=== PATIENT | female | born 1960 | race Caucasian/White ===

== ENCOUNTER 2020-01-25 18:09 | Inpatient (IN) | payer OTHER ==
[~2020-01-25] VITALS: Ht 170.2 cm; Wt 117.9 kg
[2020-01-25] MEDS ORDERED: HYDROCODONE/APAP 10MG-325MG TAB PO ONE (19:30)
[2020-01-25] MEDS ORDERED: METOPROLOL SUCCINATE 25 MG TAB XL PO ONE (19:30)
--- NOTE | 2020-01-25 19:48 | Emergency Department Note ---
History of Present Illnes History of Present Illness Chief Complaint: Extremity Trauma/Pain History of Present Illness This is a 59 year old female presents with c/o injuring right lower leg, states her leg gave out and she fell . Historian: Patient Arrival Mode: Car Onset (how long ago): hour(s) (1) Location: lle Quality: pain Radiation: Reports non-radiation Severity: moderate Onset quality: sudden Duration (how long): hour(s) (1) Timing of current episode: constant Progression: unchanged Chronicity: new Context: Reports trauma/injury (fell) Relieving factors: none Exacerbating factors: movement Associated symptoms: Reports denies other symptoms Treatments prior to arrival: none Past Medical/Family History Physician Review I have reviewed the patient's past medical and family history. Any updates have been documented here. Past Medical History Recent Fever: No Clinical Suspicion of Infectio: No New/Unexplained Change in Ment: No Past Surgical History: Cholecysctectomy, Knee Replacement Other Surgery: BILATERAL KNEE REPLACEMENTS Social History Smoking Cessation: Never Smoker Alcohol Use: Occasional Any Illegal Drug Use: No Family History Family history of heart diseas: No Other Last Tetanus: UTD Review of Systems Review of Systems Constitutional: Reports no symptoms EENTM: Reports no symptoms Cardiovascular: Reports no symptoms Respiratory: Reports no symptoms Gastrointestinal: Reports no symptoms Genitourinary: Reports no symptoms Musculoskeletal: Reports as per HPI Integumentary: Reports no symptoms Neurological: Reports no symptoms Psychological: Reports no symptoms Endocrine: Reports no symptoms Hematological/Lymphatic: Reports no symptoms Physical Exam Related Data Allergies: Coded Allergies: Sulfa (Sulfonamide Antibiotics) (Verified Allergy, Intermediate, 01/25/20) Triage Vital Signs Vital Signs Date Time Temp Pulse Resp B/P (MAP) Pulse Ox O2 Delivery O2 Flow Rate FiO2 01/25/20 19:24 97.9 118 18 119/75 98 Vital signs reviewed: Yes Physical Exam CONSTITUTIONAL Constitutional: Present well-developed, Present well-nourished HENT HENT: Present normocephalic, Present atraumatic, Present oropharynx clear/moist, Present nose normal HENT L/R: Present left ext ear normal, Present right ext ear normal EYES Eyes: Reports PERRL, Reports conjunctivae normal NECK Neck: Present ROM normal PULMONARY Pulmonary: Present effort normal, Present breath sounds normal CARDIOVASCULAR Cardiovascular: Present regular rhythm, Present heart sounds normal, Present capillary refill normal, Present tachycardia (118, pt has not had her evening dose of metoprolol for her chronic tachycardia) GASTROINTESTINAL Abdominal: Present soft, Present nontender, Present bowel sounds normal GENITOURINARY Genitourinary: Present exam deferred SKIN Skin: Present warm, Present dry MUSCULOSKELETAL Musculoskeletal: Present deformity (mild right lower leg with abrasion present, bruising extends to calf) NEUROLOGICAL Neurological: Present alert, Present oriented x 3, Present no gross motor or sensory deficits PSYCHOLOGICAL Psychological: Present mood/affect normal, Present judgement normal Results Laboratory Laboratory Laboratory Tests Test 01/26/20 01:18 01/25/20 23:00 01/25/20 22:55 White Blood Count 11.80 x10e3/uL (4.8-10.8) Red Blood Count 4.84 x10e6/uL (3.6-5.1) Hemoglobin 14.8 g/dL (12.0-16.0) Hematocrit 44.5 % (34.2-44.1) Mean Corpuscular Volume 91.9 fL (81-99) Mean Corpuscular Hemoglobin 30.6 pg (28-32) Mean Corpuscular Hemoglobin Concent 33.3 g/dL (31-35) Red Cell Distribution Width 14.5 % (11.7-14.4) Platelet Count 258 x10e3/uL (140-360) Neutrophils (%) (Auto) 73.7 % (38.7-80.0) Lymphocytes (%) (Auto) 14.5 % (18.0-39.1) Monocytes (%) (Auto) 8.1 % (4.4-11.3) Eosinophils (%) (Auto) 1.0 % (0.0-6.0) Basophils (%) (Auto) 0.8 % (0.0-1.0) Neutrophils # (Auto) 8.7 (2.1-6.9) Lymphocytes # (Auto) 1.7 (1.0-3.2) Monocytes # (Auto) 1.0 (0.2-0.8) Eosinophils # (Auto) 0.1 (0.0-0.4) Basophils # (Auto) 0.1 (0.0-0.1) Absolute Immature Granulocyte (auto 0.22 x10e3/uL (0-0.1) Prothrombin Time 12.2 seconds (11.9-14.5) Prothromb Time International Ratio 0.86 Activated Partial Thromboplast Time 24.4 seconds (23.8-35.5) Sodium Level 140 mmol/L (136-145) Potassium Level 4.3 mmol/L (3.5-5.1) Chloride Level 105 mmol/L (98-107) Carbon Dioxide Level 27 mmol/L (22-29) Anion Gap 12.3 mmol/L (8-16) Blood Urea Nitrogen 12 mg/dL (7-26) Creatinine 1.36 mg/dL (0.57-1.11) Estimat Glomerular Filtration Rate 40 ML/MIN (60-) BUN/Creatinine Ratio 9 (6-25) Glucose Level 274 mg/dL (74-118) Calcium Level 9.3 mg/dL (8.4-10.2) Total Bilirubin 0.6 mg/dL (0.2-1.2) Aspartate Amino Transf (AST/SGOT) 30 IU/L (5-34) Alanine Aminotransferase (ALT/SGPT) 31 IU/L (0-55) Alkaline Phosphatase 131 IU/L (40-150) Total Protein 6.6 g/dL (6.5-8.1) Albumin 3.6 g/dL (3.5-5.0) Globulin 3.0 g/dL (2.3-3.5) Albumin/Globulin Ratio 1.2 (0.8-2.0) Lab results reviewed: Yes Imaging Imaging results reviewed: Yes Imaging Comments PT WITH DISPLACED SPIRAL FRACTURE OF RIGHT TIBIA Procedures 12 Lead ECG Interpretation ECG Interpretation : ECG: 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: Interpreted by ED physician Date: Jan 26, 2020 Time: 23:08 Rhythm: sinus tachycardia Rate: tachycardia BPM: 136 QRS axis: left ST segments normal: No (NON SECIFIC ST CHANGES) T waves normal: Yes Other findings: no other findings Clinical Impression: abnormal ECG Additional Comments PT DID NOT TAKE HER METOPROLOL TONIGHT AND SHE STATES THAT IS WHAT MY HEART RATE DOES WHEN I FORGET TO TAKE MY METOPROLOL Orthopedic Splinting/Casting Injury: Injury #1 Side: right Lower extremity injury locatio: lower leg Lower extremity immobilizer: stirrup splint Assessment & Plan Medical Decision Making MDM pt with right lower leg injury s/p fall xray left lower leg and left ankle ordered to eval for fracture norco 10 mg po ordered metoprolol er 25 mg po ordered PT WITH DISPLACE RIGHT TIBIA FRACTURE, I SPOKE WITH DR PORTER AND DR SMITH, ADMIT INPATIENT KEEP NPO Assessment & Plan Final Impression: (1) Chronic tachycardia (2) Right tibial fracture Depart Disposition: ADMITTED Last Vital Signs Date Time Temp Pulse Resp B/P (MAP) Pulse Ox O2 Delivery O2 Flow Rate FiO2 01/25/20 19:24 97.9 118 18 119/75 98 Medications in the ED Metoprolol Succinate 25 mg ONCE ONCE PO ; Start 01/25/20 at 19:30; Stop 01/25/20 at 19:31; Status DC Acetaminophen/ Hydrocodone Bitart 1 ea ONCE ONCE PO ; Start 01/25/20 at 19:30; Stop 01/25/20 at 19:31; Status DC SYED DORMAN MD Jan 25, 2020 19:47
--- NOTE | 2020-01-25 20:45 | Diagnostic Imaging Report ---
ANKLE 3 + VIEWS RIGHT, LOWER LEG RIGHT - Multiple views HISTORY: ^s/p fall ^Y COMPARISON: None available. FINDINGS: Bones: There is a mildly displaced spiral fracture of the distal femoral shaft. Osseous alignment is within normal limits. Joints: The joint spaces are well-maintained. Soft tissues: There is a small heel spur and Achilles tendon enthesophyte. IMPRESSION: Mildly displaced spiral fracture of the distal femoral shaft Signed by: Link Belle MD on 01/25/2020 8:41 PM
--- NOTE | 2020-01-25 22:39 | Diagnostic Imaging Report ---
Examination: Single AP view of the chest. COMPARISON: None. INDICATION: Preop exam for right leg surgery IMPRESSION: 1. Lines and Tubes: None 2. Lungs are grossly clear. No consolidation or effusion. Elevation of the right hemidiaphragm, which may be due to eventration. 3. Cardiomediastinal silhouette is normal. Pulmonary vasculature is normal. 4. No acute bony abnormalities. Degenerative changes in the thoracic spine. Signed by: Dr. Roberto Garcia M.D. on 01/25/2020 10:36 PM
[2020-01-25] MEDS ORDERED: HYDROCODONE/APAP 10MG-325MG TAB ONE (22:46)
[2020-01-25] MEDS ORDERED: METOPROLOL SUCCINATE 25 MG TAB XL ONE (22:46)
[2020-01-25 23:07] LABS: BASOPHILS # (AUTO) 0.1 (0.0-0.1); BASOPHILS % 0.8 % (0.0-1.0); EOSINOPHILS # (AUTO) 0.1 (0.0-0.4); HEMATOCRIT 44.5 % (34.2-44.1); HEMOGLOBIN 14.8 g/dL (12.0-16.0); LYMPHOCYTES # (AUTO) 1.7 (1.0-3.2); LYMPHOCYTES % 14.5 % (18.0-39.1); MEAN CORPUSCULAR HEMOGLOBIN 30.6 pg (28-32); MEAN CORPUSCULAR HGB CONC 33.3 g/dL (31-35); MEAN CORPUSCULAR VOLUME 91.9 fL (81-99); MONOCYTES % 8.1 % (4.4-11.3); NEUTROPHILS # (AUTO) 8.7 (2.1-6.9); NEUTROPHILS % 73.7 % (38.7-80.0); PLATELET COUNT 258 x10e3/uL (140-360); RED BLOOD COUNT 4.84 x10e6/uL (3.6-5.1); RED CELL DISTRIBUTION WIDTH 14.5 % (11.7-14.4)
[2020-01-25 23:16] LABS: INR 0.86; PROTHROMBIN TIME 12.2 seconds (11.9-14.5)
[2020-01-25 23:17] LABS: PARTIAL THROMBOPLASTIN TIME 24.4 seconds (23.8-35.5)
[2020-01-25 23:23] LABS: ALBUMIN 3.6 g/dL (3.5-5.0); ALBUMIN/GLOBULIN RATIO 1.2 (0.8-2.0); ANION GAP 12.3 mmol/L (8-16); CALCIUM 9.3 mg/dL (8.4-10.2); CREATININE, SERUM 1.36 mg/dL (0.57-1.11); POTASSIUM 4.3 mmol/L (3.5-5.1)
[2020-01-25] MEDS ORDERED: HEPARIN SOD (PORCINE) 5,000 UNIT/ML VIAL IV STA (23:48)
[2020-01-26] VITALS (7 sets, daily range): BP systolic 88–125; BP diastolic 59–76
--- NOTE | 2020-01-26 00:17 | NUR ---
order for heparin iv noted. dr vargas called to clarify route. dr vargas ordered to change to sq route.
[2020-01-26] MEDS: ONDANSETRON HCL INJ 2MG/ML 2ML 2 MG/ML VIAL IV STA ×2 (00:26→01:40)
[2020-01-26] MEDS: MORPHINE SULFATE 2 MG/ML SYR 1ML IV STA ×2 (00:26→01:40)
[2020-01-26] MEDS ORDERED: HEPARIN SOD (PORCINE) 5,000 UNIT/ML VIAL SC ONE (00:30)
[2020-01-26] MEDS ORDERED: SODIUM CHLORIDE 0.9% 1000ML 500 ML IV ONE (00:45)
[2020-01-26] MEDS ORDERED: SODIUM CHLORIDE 0.9% 1000ML 1,000 ML ONE (00:45)
[2020-01-26] MEDS ORDERED: SODIUM CHLORIDE 0.9% 500ML 500 ML ONE (00:45)
[2020-01-26] MEDS: SODIUM CHLORIDE 0.9% 1000ML 1,000 ML IV SCH ×3 (01:15→16:47)
[2020-01-26] MEDS ORDERED: LISINOPRIL2.5 MG PO (01:39)
[2020-01-26] MEDS ORDERED: VITAMIN D3125 MCG PO (01:39)
[2020-01-26] MEDS ORDERED: VITAMIN B122500 MCG PO (01:39)
[2020-01-26] MEDS ORDERED: STOOL SOFTENER1 EAC2 PO (01:39)
[2020-01-26] MEDS ORDERED: DOXEPIN HCL25 MG PO (01:39)
[2020-01-26] MEDS ORDERED: ZOFRAN4 MG PO (01:39)
[2020-01-26] MEDS ORDERED: METOPROLOL SUCC25 MG PO (01:39)
[2020-01-26] MEDS ORDERED: DOXYCYCLINE HY100 MG PO (01:39)
[2020-01-26] MEDS ORDERED: ATORVASTATIN CA20 MG PO (01:39)
[2020-01-26] MEDS ORDERED: LEVOTHYROXINE50 MCG PO (01:39)
[2020-01-26] MEDS ORDERED: ONDANSETRON HCL INJ 2MG/ML 2ML 2 MG/ML VIAL IV PRN (01:45)
[2020-01-26 02:02] LABS: BILIRUBIN,URINE NEGATIVE (NEGATIVE); CLARITY,URINE CLOUDY (CLEAR); COLOR,URINE YELLOW (YELLOW); KETONES,URINE NEGATIVE (NEGATIVE); LEUKOCYTE ESTERASE ,URINE TRACE (NEGATIVE); NITRITE,URINE NEGATIVE (NEGATIVE); URINE UROBILINOGEN 0.2 mg/dL (0.2 - 1)
[2020-01-26 02:03] LABS: PROTEIN,URINE DIPSTICK 1+ (NEGATIVE)
[2020-01-26 02:08] LABS: BACTERIA,URINE MODERATE /HPF; EPITHELIAL CELLS,URINE FEW /LPF; TRANSITIONAL EPI CELLS,URINE FEW; WBC,URINE (MAN) >50 /HPF (0-5)
[2020-01-26] MEDS ORDERED: KETOROLAC TROMETHAMINE 30 MG/ML VIAL IV STA (02:36)
[2020-01-26] MEDS ORDERED: KETOROLAC TROMETHAMINE 30 MG/ML VIAL ONE (02:44)
[2020-01-26] MEDS ORDERED: PNEUMOCOCCAL VACCINE POLYVALENT 23 MCG/0.5 ML VIAL IM SCH (04:44)
--- NOTE | 2020-01-26 07:17 | NUR ---
Bedside report and walking rounds completed with oncoming nurse. Patient in bed with call light within reach. No issue or concerns noted.
[2020-01-26] MEDS: METOPROLOL SUCCINATE 25 MG TAB XL PO SCH ×2 (09:00→16:47)
[2020-01-26] MEDS: DOXYCYCLINE HYCLATE TABLET 100 MG TAB PO SCH ×2 (09:00→16:47)
[2020-01-26 09:44] LABS: BASOPHILS % 0.5 % (0.0-1.0); EOSINOPHILS # (AUTO) 0.1 (0.0-0.4); EOSINOPHILS % 1.6 % (0.0-6.0); HEMATOCRIT 35.2 % (34.2-44.1); LYMPHOCYTES # (AUTO) 1.3 (1.0-3.2); LYMPHOCYTES % 30.3 % (18.0-39.1); MEAN CORPUSCULAR HEMOGLOBIN 30.3 pg (28-32); MEAN CORPUSCULAR HGB CONC 32.4 g/dL (31-35); MEAN CORPUSCULAR VOLUME 93.6 fL (81-99); MONOCYTES # (AUTO) 0.5 (0.2-0.8); MONOCYTES % 10.4 % (4.4-11.3); NEUTROPHILS # (AUTO) 2.4 (2.1-6.9); NEUTROPHILS % 55.3 % (38.7-80.0); RED BLOOD COUNT 3.76 x10e6/uL (3.6-5.1); RED CELL DISTRIBUTION WIDTH 14.6 % (11.7-14.4)
[2020-01-26 09:57] LABS: HEMOGLOBIN 11.4 g/dL (12.0-16.0); PLATELET COUNT 168 x10e3/uL (140-360)
[2020-01-26 10:22] LABS: CALCIUM 8.1 mg/dL (8.4-10.2); POTASSIUM 3.8 mmol/L (3.5-5.1)
[2020-01-26 11:08] LABS: ALBUMIN 2.8 g/dL (3.5-5.0); ALBUMIN/GLOBULIN RATIO 1.2 (0.8-2.0); ANION GAP 13.8 mmol/L (8-16); CREATININE, SERUM 1.2 mg/dL (0.57-1.11)
[2020-01-26] MEDS: MORPHINE SULFATE INJ 4 MG/ML INJ 1ML IV PRN ×3 (11:10→21:15)
--- NOTE | 2020-01-26 11:11 | History and Physical ---
CHIEF COMPLAINT: "I fell." HISTORY OF PRESENT ILLNESS: This 59-year-old white woman, who suffered a mechanical fall yesterday on day of admission, which resulted in a right distal spiral fibular fracture. The patient states she did not lose consciousness or experience any presyncope symptoms prior to falling. The patient states she was reaching out to obtain her mail from the mailbox when her left lower extremity gave out. In the emergency room, right lower extremity x-ray did confirm the mildly displaced spiral fracture of the distal fibular shaft. However in the emergency room, the patient was found to have a BUN and creatinine of 12 and 1.36 respectively. Moreover, she was found to have white blood cell count 11,800 with 73% segmented neutrophils. Urinalysis performed in the emergency room revealed cloudy yellow urine with trace blood, 1+ protein, trace leukocyte esterase, 6 to 10 red cells per high-power field, over 50 white cells per high-power field, and moderate bacteria. The patient was admitted for further evaluation and treatment. The patient has a history of chronic left knee joint infection, is currently on doxycycline 100 mg twice a day indefinitely. A 12- lead EKG done in the emergency room revealed sinus tachycardia, otherwise unremarkable. Chest film performed in the emergency room did not reveal any acute intrathoracic pathology. REVIEW OF SYSTEMS: GENERAL: Weight is stable. No fever or chills. HEENT: No headaches. No vision changes. CARDIOVASCULAR: No chest pain or cough. GI: No nausea, vomiting, diarrhea, constipation. : The patient states does urinate frequently. NEUROMUSCULAR: Does complain of pain in her right lower leg. The patient also has chronic left knee joint infection in which she takes doxycycline 100 mg twice a day indefinitely. PAST MEDICAL HISTORY: 1. Stage 2 chronic kidney disease. 2. Extreme obesity, BMI 42. 3. Bilateral knee degenerative joint disease. 4. Peripheral neuropathy. 5. Hypertriglyceridemia. 6. Chronic left knee joint infection. 7. Tachycardia. 8. History of left lower extremity deep venous thrombosis. 9. Hypothyroidism. PAST SURGICAL HISTORY: 1. Left total knee replacement, 3 times. 2. Left knee antibiotic spacer replacement twice because of infection. 3. Gastric bypass. 4. Prophylactic cholecystectomy. 5. Cholecystectomy. SOCIAL HISTORY: and she lives with her . 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 The patient has no history of tobacco or alcohol use, but she has been exposed to secondhand tobacco smoke from her for many years. FAMILY HISTORY: Father has diabetes mellitus and coronary artery disease. Mother of lung cancer. ALLERGIES: SULFA ANTIBIOTICS. HOME MEDICATIONS: 1. Doxycycline 100 mg b.i.d. (indefinitely for chronic left knee joint infection). 2. Ondansetron 4 mg p.o. every 8 hours p.r.n. nausea and vomiting times. 3. Doxepin 150 mg two pills every night. 4. Atorvastatin 20 mg at bedtime. 5. Levothyroxine 50 mcg daily. 6. Metoprolol succinate ER 25 mg b.i.d. 7. Lisinopril 2.5 mg daily. 8. Vitamin B12 of 1000 mcg daily. 9. Vitamin D3 of 5000 units daily. 10. Docusate 100 mg daily. PHYSICAL EXAMINATION: GENERAL: She is awake. She is alert. She is oriented. She is no distress and very pleasant. Calm. VITAL SIGNS: Height 5 feet 6 inches, weight is 260 pounds. BMI is 42. Blood pressure is 88/62, pulse 98, respiratory rate 18, temperature 97.5, oxygen saturation 100% on room air. INTEGUMENT: Skin is warm and dry. No pallor, jaundice, diaphoresis. HEENT: Anterior sclerae with moist mucous membranes. NECK: Supple. CARDIOVASCULAR: Tachycardic rate with a regular rhythm. LUNGS: No rales, no rhonchi or wheezes. ABDOMEN: Obese and benign. EXTREMITIES: The patient's left lower leg is currently wrapped in Lion bandage. NEUROLOGICAL: Intact. DIAGNOSES: 1. Right distal spiral fibular fracture secondary to fall. 2. Urinary tract infection. 3. Acute on chronic renal insufficiency. 4. Chronic tachycardia. PLAN: 1. Intravenous fluids. 2. Follow urine culture. 3. We will start intravenous ceftriaxone for the patient's urinary tract infection. 4. Consult Orthopedics for patient's right distal spiral fibular fracture. 5. I will clear the patient medically for surgery to repair the right distal fibular fracture. I spent 45 minutes in care of this patient. MD EMANI Martinez/MARGAUX /[id number] MTDD
[2020-01-26] MEDS: CEFTRIAXONE SOD 1 GM/NS 50 ML 50 ML IV SCH ×2 (11:37→22:16)
[2020-01-26] MEDS ORDERED: SODIUM CHLORIDE 0.9% IV SCH (11:45)
[2020-01-26] MEDS ORDERED: SODIUM CHLORIDE 0.9% 250ML 250 ML IV SCH (13:45)
--- NOTE | 2020-01-26 19:32 | NUR ---
ORTHOPEDIC CONSULTATION 59 year old community ambulator presents to the ED after a fall with complaints of right tibia & fibula pain. Pain localized to leg. She denies pain in any other extremity. No numbness, paresthesias or loss of distal motor function. PMdHx: CKD, Obesity, Peripheral neuropathy, HLD, Tachycardia, Chronic Left Knee Joint Infection, DVT, Hypothyroidism SurgHx: S/p RTKA (Law), L TKA x 3, Antibiotic Spacer, Gastric Bypass, Cholecystectomy Allergies: Sulfa FamHx: Non-contributory SocHx: Neg Tob, ETOH, Drugs Meds: See reconciliation AVSS Right Lower Leg in Splint Skin - small abrasion, otherwise skin intact Swollen lower leg Motor: + EHL, FHL, EDL, FDL Sensation grossly intact Pulses + DP, Post tib Compartments soft Negative calf tenderness Xrays: Right Displaced Tibial and Fibula Shaft Fracture 59 year old female with displaced right tibial and fibular shaft fracture 1. Plan for ORIF today, however due to last minute anesthesia changes in schedule procedure can not be done today. Plan for surgery at next earliest opp ortunity 2. Continue splint 3. NWB 4. Rest, Ice & Elevation 5. DVT Prophylaxis 6. Analgesics PRN Claudia Randolph,
[2020-01-27] VITALS (7 sets, daily range): BP systolic 109–138; BP diastolic 55–81
[2020-01-27] MEDS: SODIUM CHLORIDE 0.9% 1000ML 1,000 ML IV SCH ×2 (01:06→09:52)
[2020-01-27] MEDS: MORPHINE SULFATE INJ 4 MG/ML INJ 1ML IV PRN ×2 (01:35→09:58)
[2020-01-27 05:26] LABS: BASOPHILS % 0.5 % (0.0-1.0); EOSINOPHILS # (AUTO) 0.1 (0.0-0.4); HEMATOCRIT 34.4 % (34.2-44.1); HEMOGLOBIN 11.2 g/dL (12.0-16.0); LYMPHOCYTES # (AUTO) 1.1 (1.0-3.2); LYMPHOCYTES % 28.1 % (18.0-39.1); MEAN CORPUSCULAR HEMOGLOBIN 30.6 pg (28-32); MEAN CORPUSCULAR HGB CONC 32.6 g/dL (31-35); MONOCYTES # (AUTO) 0.4 (0.2-0.8); MONOCYTES % 9.8 % (4.4-11.3); NEUTROPHILS # (AUTO) 2.3 (2.1-6.9); NEUTROPHILS % 56.6 % (38.7-80.0); PLATELET COUNT 155 x10e3/uL (140-360); RED BLOOD COUNT 3.66 x10e6/uL (3.6-5.1); RED CELL DISTRIBUTION WIDTH 14.7 % (11.7-14.4)
[2020-01-27 05:57] LABS: ALBUMIN 2.8 g/dL (3.5-5.0); ALBUMIN/GLOBULIN RATIO 1.2 (0.8-2.0); ANION GAP 11.7 mmol/L (8-16); CALCIUM 7.9 mg/dL (8.4-10.2); CREATININE, SERUM 1.03 mg/dL (0.57-1.11); POTASSIUM 3.7 mmol/L (3.5-5.1)
--- NOTE | 2020-01-27 07:10 | NUR ---
Bedside report and walking rounds completed with oncoming nurse. Patient in bed with call light within reach. No issues or concerns noted.
[2020-01-27] MEDS: DOXYCYCLINE HYCLATE TABLET 100 MG TAB PO SCH ×2 (09:00→16:43)
[2020-01-27] MEDS: METOPROLOL SUCCINATE 25 MG TAB XL PO SCH ×3 (09:00→16:43)
--- NOTE | 2020-01-27 09:20 | Consultation ---
DATE OF CONSULTATION: 01/27/2020 CHIEF COMPLAINT: Right leg pain. HISTORY OF PRESENT ILLNESS: The patient is a 59-year-old lady who is complaining of right leg pain. She was going to get her mail approximately two days ago. She lost her balance and fell. She noted immediate onset of right leg pain. She was brought into the emergency room and admitted. Orthopedic consultation was requested. She was seen by an orthopedist and scheduled for surgery. There were some scheduling difficulties and he was unable to get to the surgery for several days. A 2nd orthopedic consultation was requested in order to get the leg fracture treated in a more expedited fashion. This was cleared with the patient and I agreed to see the patient. PAST MEDICAL HISTORY: Hypertension and cardiac disease. PREVIOUS SURGERIES: Cholecystectomy, gastric bypass, and left shoulder pectoralis repair. MEDICATIONS: See medication reconciliation list. ALLERGIES: SULFA DRUGS. SOCIAL HISTORY: She stays at home. She lives with her and daughter. She does not smoke and rarely drinks alcohol. PHYSICAL EXAMINATION: She is awake, alert, and oriented. She is in no distress. She is large and has a BMI of roughly 40. Her right lower extremity is in a long-leg splint. There is tenderness around the distal aspect of the leg. Neurovascular exam is normal. There are no puncture wounds, but there is moderate swelling. LABORATORY STUDIES: X-rays were reviewed and show a spiral fracture of the distal 1/3 shaft of the right tibia. She has a well-fixed knee replacement above the fracture. IMPRESSION: Right tibia fracture. PLAN: The findings and options were discussed with the patient at length. I would not be able to fix this with an intramedullary nail due to the short stem of the knee replacement. This fracture will require open reduction with internal fixation with some percutaneous proximal and distal fixation. The risks and benefits were explained. This is a difficult area for wound healing. She has comorbidities which are going to make her recovery most challenging. She does not appear to have the upper body strength to get around easily while being nonweightbearing. I suspect she will need to use a wheelchair for at least six weeks. She may have to require a stay at a rehab hospital. All of this was discussed. All of her questions were answered. She states she understands and wishes to proceed with the surgery. We have tentatively scheduled this for later today. Thank you for the consultation. Ajay Guillory MD DR/MARGAUX /[id number]
[2020-01-27] MEDS: CEFTRIAXONE SOD 1 GM/NS 50 ML 50 ML IV SCH ×2 (09:58→22:54)
[2020-01-27] MEDS ORDERED: PNEUMOCOCCAL VACCINE POLYVALENT 23 MCG/0.5 ML VIAL IM SCH (10:15)
--- NOTE | 2020-01-27 11:16 | Progress Note ---
DATE: 01/27/2020 CHIEF COMPLAINT/HISTORY OF PRESENT ILLNESS: This is a 59-year-old white woman, whose primary treating diagnosis is right distal spiral fibular fracture secondary to fall. She also has underlying urinary tract infection. Moreover, she was admitted to the hospital with acute on chronic renal insufficiency. The patient states her pain is well controlled today. The patient's BUN and creatinine today is 10 and 1.03 respectively. The patient has potassium 3.7. White blood cell count today is 3900 with 56% segmenters. So far, urine culture does not reveal any bacterial growth though. Initially, the patient was evaluated by orthopedist, Dr. Claudia Espinosa, but the Orthopedic consult has been changed to Dr. Ajay Guillory. The patient will tentatively undergo surgery later today. REVIEW OF SYSTEMS: As per HPI. PHYSICAL EXAMINATION: GENERAL: She is awake. She is alert. She is fully oriented. Her is at bedside. VITAL SIGNS: Blood pressure is 112/56, pulse is 124, respiratory rate 18, oxygen saturation 97% on room air, temperature 98.5, height 5 feet 6 inches, weight is 260 pounds, and BMI is 41. INTEGUMENT: Skin is warm and dry. No pallor, jaundice, diaphoresis. HEENT: Anicteric sclerae. Moist mucous membranes. NECK: Supple. CARDIOVASCULAR: Tachycardic rate, regular rhythm. LUNGS: No rales. No rhonchi. No wheezes. ABDOMEN: Obese, benign. EXTREMITIES: Right lower leg is currently dressed. NEUROLOGIC: Intact. DIAGNOSES: 1. Right distal spiral fibular fracture secondary to fall. 2. Urinary tract infection. 3. Acute on chronic renal insufficiency, resolved. 4. Chronic tachycardia. PLAN: 1. We will continue oral beta-blockers with small sips of water. 2. Follow urine cultures. 3. Intravenous antibiotics. 4. Intravenous fluids. 5. Follow renal function. 6. Tentative open reduction and internal fixation of the right distal fibular fracture. 7. I informed the patient that she will likely need to go to an inpatient rehabilitation facility after surgery. I spent 35 minutes in the care of this patient. MD EMANI Martinez/MARGAUX /[id number] MTDD
[2020-01-27] MEDS ORDERED: NEOSTIGMINE 1 MG/ML 10ML VIAL ONE (11:59)
[2020-01-27] MEDS ORDERED: DOCUSATE SODIUM 100 MG CAP PO PRN (13:30)
[2020-01-27] MEDS ORDERED: ZOLPIDEM TARTRATE 5 MG TAB PO PRN (13:30)
[2020-01-27] MEDS ORDERED: ONDANSETRON HCL INJ 2MG/ML 2ML 2 MG/ML VIAL IV PRN (13:30)
[2020-01-27] MEDS ORDERED: DIPHENHYDRAMINE HCL INJ 50 MG/ML VIAL IV PRN (13:30)
[2020-01-27] MEDS ORDERED: HYDROCODONE/APAP 5MG-325MG TAB PO PRN (13:30)
[2020-01-27] MEDS ORDERED: ACETAMINOPHEN 650 MG SUPP PR PRN (13:30)
[2020-01-27] MEDS ORDERED: KETOROLAC TROMETHAMINE 30 MG/ML VIAL IV PRN (13:30)
[2020-01-27] MEDS ORDERED: SODIUM CHLORIDE 0.9% 1000ML 1,000 ML IV SCH (13:30)
[2020-01-27] MEDS ORDERED: FENTANYL CITRATE/PF 100MCG/2 ML INJ ONE ×2 (13:43→14:25)
[2020-01-27] MEDS ORDERED: LABETALOL HCL 20 ML ONE (13:48)
[2020-01-27] MEDS ORDERED: MIDAZOLAM HCL 2 MG/2 ML VIAL ONE (14:25)
[2020-01-27] MEDS: CELECOXIB 100 MG CAP PO SCH (16:42)
[2020-01-27] MEDS: ASPIRIN 325 MG TAB PO SCH (16:42)
[2020-01-27] MEDS: CEFAZOLIN SOD 1 GM/NS 50ML 50 ML IV SCH ×2 (16:43→22:05)
--- NOTE | 2020-01-27 17:03 | NUR ---
CM REC'D ORDER FOR ACUTE REHAB EVAL PT STILL IN OR CM TO F/U IN AM
[2020-01-27] MEDS: HYDROCODONE/APAP 7.5MG-325MG 1 EA TAB PO PRN (17:04)
[2020-01-27] MEDS ORDERED: ONDANSETRON HCL INJ 2MG/ML 2ML 2 MG/ML VIAL ONE (19:51)
[2020-01-27] MEDS ORDERED: SEVOFLURANE INHAL SOLN 250 ML PEN BTL ONE (19:51)
[2020-01-27] MEDS ORDERED: LIDOCAINE HCL 2% LOCAL INJ 5 ML SDV VIAL INJ ONE (19:51)
[2020-01-27] MEDS ORDERED: ETOMIDATE 2 MG/ML 10 ML INJ IV ONE (19:51)
[2020-01-27] MEDS ORDERED: METOPROLOL TARTRATE INJ 1 MG/ML VIAL ONE (19:51)
[2020-01-27] MEDS ORDERED: DEXAMETHASONE SOD PHOS INJ 4 MG/ML VIAL ONE (19:51)
[2020-01-27] MEDS ORDERED: ACETAMINOPHEN 1000 MG/100 ML IV ONE (19:51)
[2020-01-27] MEDS ORDERED: CEFAZOLIN SOD 1 GM VIAL ONE (19:51)
--- NOTE | 2020-01-27 21:45 | NUR ---
CALLED MD SMITH REGARDING BS [id number]. AWAITING CALL BACK.
--- NOTE | 2020-01-27 21:52 | NUR ---
SPOKE TO MD SMITH. NEW ORDERS RECEIVED.
[2020-01-27] MEDS ORDERED: INSULIN LISPRO 100 UNIT/1 ML 3ML VIAL SQ ONE (22:00)
[2020-01-27] MEDS ORDERED: DEXTROSE 50% SYRINGE 50 ML IV PRN (22:00)
--- NOTE | 2020-01-27 23:44 | Operative Report ---
DATE OF PROCEDURE: 01/27/2020 SURGEON: Ajay Guillory MD COOK LARDER: Myles Santos PA-C PREOPERATIVE DIAGNOSIS: Right tibia fracture. POSTOPERATIVE DIAGNOSIS: Right tibia fracture. PROCEDURE: Open reduction and internal fixation, right tibia. INDICATIONS: The patient is a 59-year-old lady, who has a spiral fracture of the distal 1/3 of her right tibial shaft. She is status post bilateral total knee replacements. She has a BMI of 40. She presented to the hospital and was admitted for treatment. Surgery was initially scheduled with another orthopedic surgeon. This had to be delayed and it was requested that I assume care. I have gone over the risks and benefits of the procedure with the patient. The added challenges in her recovery due to her general physical deconditioning were explained. The inability to treat this with an intramedullary nail was explained. The patient has a total knee replacement with a short stem. This will not allow traditional placement of the tip of the intramedullary nail. We plan on open reduction with internal fixation attempting to perform limited soft tissue dissection and percutaneous screw fixation of the plate. All of her questions were answered. She states she understands and wishes to proceed. PROCEDURE IN DETAIL: The patient was brought to the operating room and placed under general anesthetic. Her right lower extremity was prepped and draped in a sterile manner. She received prophylactic antibiotics. A preoperative time-out was performed. The extremity was exsanguinated and a proximal tourniquet was inflated to 350 mmHg. An incision was made directly over the fracture site. The fracture hematoma was evacuated. The fracture was carefully exposed. Care was taken with handling of the soft tissue. A [place] periarticular locking plate was then chosen. This was passed along the medial aspect of the tibial shaft. This was advanced proximally and then passed through the wound and advanced distally. An intraoperative C-arm image intensifier was used to assist in positioning of the plate. A Casey bone clamp was used to reduce the fracture. A combination of compression and locking screws were used to fix the plate to the proximal and distal aspects of the tibial shaft. Secure fixation was felt to be obtained. Intraoperative C-arm images confirmed satisfactory positioning of the hardware in the AP and lateral plane. There were a number of interfragmentary lag screws placed. The wounds were then thoroughly irrigated. 5 mL of DBX bone putty was placed into the fracture site. The deep fascia was closed with buried 0 Vicryl stitches. The skin was closed with subcuticular Vicryl and duke. There were additional poke holes proximally and distally. She was placed into a sterile bandage and a well-padded posterior splint. She was extubated and transported to the recovery room in stable condition. Blood loss was approximately 20 mL. At the end of the procedure, needle and sponge counts were correct. Ajay Guillory MD DR/MARGAUX /[id number]
[2020-01-28] VITALS (7 sets, daily range): BP systolic 119–133; BP diastolic 59–81
[2020-01-28] MEDS: HYDROCODONE/APAP 7.5MG-325MG 1 EA TAB PO PRN ×2 (00:54→16:44)
[2020-01-28 05:34] LABS: BASOPHILS % 0.3 % (0.0-1.0); HEMATOCRIT 32.6 % (34.2-44.1); HEMOGLOBIN 10.9 g/dL (12.0-16.0); LYMPHOCYTES # (AUTO) 0.5 (1.0-3.2); LYMPHOCYTES % 7.7 % (18.0-39.1); MEAN CORPUSCULAR HEMOGLOBIN 31.1 pg (28-32); MEAN CORPUSCULAR HGB CONC 33.4 g/dL (31-35); MEAN CORPUSCULAR VOLUME 92.9 fL (81-99); MONOCYTES # (AUTO) 0.4 (0.2-0.8); MONOCYTES % 7.4 % (4.4-11.3); NEUTROPHILS # (AUTO) 4.7 (2.1-6.9); PLATELET COUNT 174 x10e3/uL (140-360); RED BLOOD COUNT 3.51 x10e6/uL (3.6-5.1); RED CELL DISTRIBUTION WIDTH 14.5 % (11.7-14.4)
[2020-01-28] MEDS: CEFAZOLIN SOD 1 GM/NS 50ML 50 ML IV SCH (05:44)
--- NOTE | 2020-01-28 05:52 | NUR ---
D/C TRACY PER MD ORDERS. CATHETER TIP INTACT. NO ADVERSE SIGNS. TOLERATED PROCEDURE WELL.
[2020-01-28 05:55] LABS: ALBUMIN 2.8 g/dL (3.5-5.0); ALBUMIN/GLOBULIN RATIO 1.1 (0.8-2.0); CALCIUM 8.4 mg/dL (8.4-10.2); CREATININE, SERUM 0.97 mg/dL (0.57-1.11)
--- NOTE | 2020-01-28 07:04 | NUR ---
REPORT GIVEN TO DAYSHIFT NURSE. RESTING IN BED. AAOX3. NO SIGNS IV INFILTRATION. BED LOCKED AND IN LOW POSITION. CALL LIGHT WITHIN REACH. BED ALARM ACTIVATED.
[2020-01-28] MEDS: INSULIN LISPRO 100 UNIT/1 ML 3ML VIAL SQ SCH ×4 (07:30→21:00)
[2020-01-28] MEDS: ASPIRIN 325 MG TAB PO SCH ×2 (09:17→16:43)
[2020-01-28] MEDS: DOXYCYCLINE HYCLATE TABLET 100 MG TAB PO SCH ×2 (09:18→16:44)
[2020-01-28] MEDS: CELECOXIB 100 MG CAP PO SCH ×2 (09:18→16:43)
[2020-01-28] MEDS: METOPROLOL SUCCINATE 25 MG TAB XL PO SCH ×2 (09:18→16:44)
[2020-01-28] MEDS: CEFTRIAXONE SOD 1 GM/NS 50 ML 50 ML IV SCH ×2 (09:30→21:45)
--- NOTE | 2020-01-28 10:06 | Progress Note ---
DATE: 01/28/2020 CHIEF COMPLAINT/HISTORY OF PRESENT ILLNESS: This is a 59-year-old white woman whose primary treating diagnosis is right spiral tibial fracture. Yesterday, the patient underwent open reduction and internal fixation of the right tibia, which was performed by Dr. Ajay Guillory. The patient tolerated surgery quite well. Overnight, the patient was found to have glucose readings over 300 mg/dL. The patient states that in the past she has been told she is prediabetic. Complete blood count today was unremarkable except hemoglobin was 10.9 g/dL. White blood cell count was 5800 with 81% segmented neutrophils. The patient's BUN and creatinine was 9 and 0.97 respectively. Serum glucose this morning was 214 mg/dL. The patient had urine culture done on admission, which revealed 10,000 to 50,000 colony-forming units of lactobacilli, diphtheroids and alpha streptococci bacterial species. The patient is currently on ceftriaxone which she tolerated quite well. The patient cannot ambulate with therapy because of instability of her left lower extremity. The patient has a chronic infection of the left knee joint. REVIEW OF SYSTEMS: As per HPI. PHYSICAL EXAMINATION: GENERAL: She is awake. She is alert. She is fully oriented. She is in no distress. She is very pleasant and cooperative on exam. VITAL SIGNS: Blood pressure is 120/60, pulse 88, respiratory rate 16, temperature is 97.9, oxygen saturation is 100% on room air. Height is 5 feet 6 inches, weight is 260 pounds, BMI is 41. INTEGUMENT: Skin is warm and dry. No pallor, jaundice, or diaphoresis. HEENT: Anterior sclerae with moist mucous membranes. NECK: Supple. CARDIOVASCULAR: Tachycardic rate with regular rhythm. LUNGS: No rales. No rhonchi. No wheezes. ABDOMEN: Obese, benign. EXTREMITIES: Right lower leg is currently dressed. NEUROLOGIC: Intact. DIAGNOSES: 1. Status post right tibia open reduction and internal fixation. 2. Urinary tract infection. 3. Chronic right knee joint infection. 4. Acute on chronic renal insufficiency, resolved. 5. Chronic tachycardia. 6. Type 2 diabetes mellitus. PLAN: 1. Attempt to mobilize therapy. 2. Pain control. 3. Discontinue telemetry. 4. We will start long-acting insulin, likely glargine 10 units subcutaneously twice a day for glucose control. 5. Continue oral metoprolol for the patient's tachycardia. 6. Stop intravenous fluids. 7. Discontinue telemetry. 8. Continue intravenous antibiotics for patient's urinary tract infection. 9. Follow electrolytes and renal function. 10. We will ask the patient to continue incentive spirometer usage to prevent atelectasis. 11. The patient will be likely transferred to an inpatient rehabilitation unit today, perhaps [facility] located in [place], [place]. I spent 35 minutes in the care of the patient. MD EMANI Martinez/MARGAUX /[id number] MTDD
--- NOTE | 2020-01-28 10:36 | NUR ---
PT SIGNED CHOICE FOR [facility] SIGNED CHOICE FILED IN CHART
[2020-01-28] MEDS: INSULIN GLARGINE 100 UNITS/ML VIAL SQ SCH ×2 (11:45→21:00)
--- NOTE | 2020-01-28 11:49 | NUR ---
REFERRAL FAXED TO [facility] @ OFF: [phone] / FAX: [phone]. NOTIFIED FRANCOIS BOYCE
[2020-01-28] MEDS ORDERED: ACETAMINOPHEN 1000 MG/100 ML IV PRN (13:30)
[2020-01-29] VITALS: BP 126/72
[2020-01-29] MEDS: HYDROCODONE/APAP 7.5MG-325MG 1 EA TAB PO PRN (03:13)
[2020-01-29 04:00] VITALS: BP 105/61
[2020-01-29 05:17] LABS: BASOPHILS % 0.7 % (0.0-1.0); EOSINOPHILS % 0.7 % (0.0-6.0); HEMATOCRIT 31.4 % (34.2-44.1); HEMOGLOBIN 10.5 g/dL (12.0-16.0); LYMPHOCYTES % 21.2 % (18.0-39.1); MEAN CORPUSCULAR HEMOGLOBIN 31.4 pg (28-32); MEAN CORPUSCULAR HGB CONC 33.4 g/dL (31-35); MONOCYTES # (AUTO) 0.4 (0.2-0.8); MONOCYTES % 9.2 % (4.4-11.3); NEUTROPHILS # (AUTO) 2.9 (2.1-6.9); NEUTROPHILS % 64.4 % (38.7-80.0); PLATELET COUNT 171 x10e3/uL (140-360); RED BLOOD COUNT 3.34 x10e6/uL (3.6-5.1); RED CELL DISTRIBUTION WIDTH 14.6 % (11.7-14.4)
[2020-01-29 05:41] LABS: ANION GAP 9.6 mmol/L (8-16); BLOOD UREA NITROGEN 8 mg/dL (7-26); BUN/CREATININE RATIO 9 (6-25); CALCIUM 8.6 mg/dL (8.4-10.2); CARBON DIOXIDE 25 mmol/L (22-29); CHLORIDE 111 mmol/L (98-107); CREATININE, SERUM 0.85 mg/dL (0.57-1.11); EST GLOMERULAR FILTRATION RATE > 60 ML/MIN (60-); GLUCOSE 144 mg/dL (74-118); POTASSIUM 3.6 mmol/L (3.5-5.1); SODIUM 142 mmol/L (136-145)
[2020-01-29 07:49] VITALS: BP 134/80
[2020-01-29 08:07] VITALS: BP 134/80
[2020-01-29] MEDS: INSULIN LISPRO 100 UNIT/1 ML 3ML VIAL SQ SCH ×2 (09:28→11:46)
[2020-01-29] MEDS: ASPIRIN 325 MG TAB PO SCH (09:36)
[2020-01-29] MEDS: METOPROLOL SUCCINATE 25 MG TAB XL PO SCH (09:36)
[2020-01-29] MEDS: CELECOXIB 100 MG CAP PO SCH (09:36)
[2020-01-29] MEDS: DOXYCYCLINE HYCLATE TABLET 100 MG TAB PO SCH (09:36)
[2020-01-29] MEDS: CEFTRIAXONE SOD 1 GM/NS 50 ML 50 ML IV SCH (09:38)
[2020-01-29] MEDS: INSULIN GLARGINE 100 UNITS/ML VIAL SQ SCH (09:38)
--- NOTE | 2020-01-29 11:18 | Discharge Summary ---
ADMITTING DIAGNOSES: 1. Right distal spiral tibial fracture secondary to fall. 2. Urinary tract infection. 3. Acute on chronic renal insufficiency. 4. Chronic tachycardia. 5. Chronic left knee joint infection. DISCHARGE DIAGNOSES: 1. Status post open reduction and internal fixation of right tibia to repair fracture. 2. Acute renal insufficiency secondary to acute tubular necrosis, resolved. 3. Chronic tachycardia. 4. Chronic left knee joint infection. 5. Extreme obesity, BMI of 41. 6. Urinary tract infection, resolved. 7. Type 2 diabetes mellitus requiring insulin therapy. HOSPITAL COURSE: This is a 59-year-old white woman, who was initially admitted to [facility] [place] with diagnosis of right distal tibial spiral fracture secondary to mechanical fall. She was also diagnosed with acute renal insufficiency secondary to acute tubular necrosis and urinary tract infection on admission. The patient's urinary tract infection symptoms improved with intravenous ceftriaxone. The patient's acute renal insufficiency secondary to acute tubular necrosis resolved with intravenous saline. The patient was initially seen by orthopedist, Dr. Nixon Banuelos, but due to scheduling issues, the orthopedist consult was transferred to Dr. Ajay Guillory. Dr. Ajay Guillory performed successful open reduction and internal fixation repair of the distal right tibial spiral fracture. The patient tolerated surgery quite well. Due to the fact that the patient has multiple medical comorbidities, the decision was made to transfer the patient to an inpatient rehabilitation unit, namely [facility] located in [place], [place]. CONDITION ON TRANSFER: Stable. DISCHARGE MEDICATIONS: 1. Lantus insulin 10 units subcutaneous twice a day. 2. Ceftriaxone 1 g intravenous every 12 hours for three more days. 3. Celebrex 200 mg b.i.d. 4. Aspirin 325 mg b.i.d. 5. Doxycycline 100 mg b.i.d. 6. Metoprolol succinate 25 mg b.i.d. 7. Humalog insulin sliding scale. 8. [place] 7.5/325 one pill every 4 hours p.r.n. severe pain. 9. Ondansetron 4 mg intravenously every 6 hours p.r.n. nausea and vomiting. 10. Acetaminophen 650 mg every 4 hours p.r.n. temperature 99.5 or higher. FOLLOWUP INSTRUCTIONS: As previously stated, the patient will be transferred to [facility] located in [place], [place]. MD EMANI Martinez/MARGAUX /[id number]
[2020-01-29 11:56] VITALS: BP 146/75
--- NOTE | 2020-01-29 15:53 | NUR ---
patient discharged to [facility] rehab. vitals stable with no distress at time of discharge.
== END 2020-01-29 15:53 | DRG 492 ==
LOC: ER 18:09 → ERHOLD 01-26 02:47 → MED/SURG 01-26 02:51
PROVIDERS: ADMIT Internal Medicine; ATTEND Internal Medicine
PROC: 0QSG04Z Reposition Right Tibia with Internal Fixation Device, Open Approach (ICD-10-PCS; principal; 2020-01-27 10:30)
DX: S82.391A Other fracture of lower end of right tibia, initial encounter for closed fracture (principal); N17.0 Acute kidney failure with tubular necrosis; N39.0 Urinary tract infection, site not specified; Z68.41 Body mass index [BMI] 40.0-44.9, adult; Z90.49 Acquired absence of other specified parts of digestive tract; Z96.653 Presence of artificial knee joint, bilateral; S80.811A Abrasion, right lower leg, initial encounter; W01.0XXA Fall on same level from slipping, tripping and stumbling without subsequent striking against object, initial encounter; R00.0 Tachycardia, unspecified; N18.2 Chronic kidney disease, stage 2 (mild); E66.01 Morbid (severe) obesity due to excess calories; G62.9 Polyneuropathy, unspecified; E78.1 Pure hyperglyceridemia; E03.9 Hypothyroidism, unspecified; Z86.718 Personal history of other venous thrombosis and embolism; Z98.84 Bariatric surgery status; Z83.3 Family history of diabetes mellitus; Z80.1 Family history of malignant neoplasm of trachea, bronchus and lung; Z82.49 Family history of ischemic heart disease and other diseases of the circulatory system; Z88.2 Allergy status to sulfonamides; Y93.89 Activity, other specified; Y92.018 Other place in single-family (private) house as the place of occurrence of the external cause; E11.65 Type 2 diabetes mellitus with hyperglycemia; T84.54XD Infection and inflammatory reaction due to internal left knee prosthesis, subsequent encounter; B96.89 Other specified bacterial agents as the cause of diseases classified elsewhere; B95.4 Other streptococcus as the cause of diseases classified elsewhere; Z11.59 Encounter for screening for other viral diseases
CPT/HCPCS: 36415; 71045; 76000; 80048; 80053; 81001; 82948; 83036; 83605; 85025; 85610; 85730; 86850; 86870; 86880; 86900; 86905; 87086; 87635; 90732; 93005; 96361; 97139; 99001; 99284; C1713; J0690; J0696; J1100; J1644; J1815; J1885; J2001; J2250; J2270; J2405; J2710; J3010; J7030; J7040

== ENCOUNTER 2020-04-21 18:23 | Inpatient (IN) | payer OTHER ==
[~2020-04-21] VITALS: Ht 170.2 cm; Wt 119.7 kg
[~2020-04-21 18:23] MED LIST: ATORVASTATIN CA20 MG PO; DOXEPIN HCL25 MG PO; DOXYCYCLINE HY100 MG PO; LEVOTHYROXINE50 MCG PO; LISINOPRIL2.5 MG PO; METOPROLOL SUCC25 MG PO; STOOL SOFTENER1 EAC2 PO; VITAMIN B122500 MCG PO; VITAMIN D3125 MCG PO; ZOFRAN4 MG PO
[2020-04-21] MEDS ORDERED: SODIUM CHLORIDE 0.9% 1000ML 1,000 ML IV ONE ×3 (18:45)
[2020-04-21 19:13] LABS: BASOPHILS # (AUTO) 0.1 (0.0-0.1); BASOPHILS % 0.3 % (0.0-1.0); HEMATOCRIT 39.3 % (34.2-44.1); HEMOGLOBIN 12.3 g/dL (12.0-16.0); LYMPHOCYTES # (AUTO) 1.2 (1.0-3.2); LYMPHOCYTES % 4.9 % (18.0-39.1); MEAN CORPUSCULAR HEMOGLOBIN 29.2 pg (28-32); MEAN CORPUSCULAR HGB CONC 31.3 g/dL (31-35); MEAN CORPUSCULAR VOLUME 93.3 fL (81-99); MONOCYTES # (AUTO) 1.3 (0.2-0.8); MONOCYTES % 5.5 % (4.4-11.3); NEUTROPHILS # (AUTO) 21.3 (2.1-6.9); NEUTROPHILS % 87.8 % (38.7-80.0); PLATELET COUNT 209 x10e3/uL (140-360); RED BLOOD COUNT 4.21 x10e6/uL (3.6-5.1); RED CELL DISTRIBUTION WIDTH 14.6 % (11.7-14.4)
--- NOTE | 2020-04-21 19:16 | Diagnostic Imaging Report ---
Examination: Single AP view of the chest. COMPARISON: AP chest 01/25/2020 INDICATION: Lethargic, low blood pressure IMPRESSION: Exam limited by soft tissue attenuation from patient's body habitus. 1. Lines and Tubes: None 2. Hypoinflated lungs. Persistent elevation of the left hemidiaphragm, likely due to eventration. Hazy opacity in the left lower lung, which may reflect pleural effusion. Recommend erect chest PA and lateral for further evaluation. 3. Cardiomediastinal silhouette is normal. Pulmonary vasculature is normal. 4. No acute bony abnormalities. Signed by: Dr. Roberto Garcia M.D. on 04/21/2020 7:13 PM
[2020-04-21] MEDS ORDERED: CEFEPIME 2 GM/NS 0.9% 100 ML 100 ML IV ONE (19:30)
--- NOTE | 2020-04-21 19:38 | Emergency Department Note ---
History of Present Illnes History of Present Illness Chief Complaint: General Medicine Complaints History of Present Illness This is a 59 year old female presents to ED via EMS for c/o lethargy and AMS x 2 days. 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 Upon arrival to 6, this RN noted pt to have BP of 79/36. HR: 130-140s, obtunded, mucous membranes dry. Per ems, reports pt has been like this for 2 days and has only drank a few sips of water and Dr. gautam . 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 Any updates have been documented here. Past Medical History Recent Fever: No Clinical Suspicion of Infectio: Yes New/Unexplained Change in Ment: Yes Other Medical History: Chronic tachycardia Past Surgical History: Cholecysctectomy, Knee Replacement Other Surgery: BILATERAL KNEE REPLACEMENTS Social History Smoking Cessation: Never Smoker Counseling Performed: No Alcohol Use: None Any Illegal Drug Use: No Other Last Tetanus: UTD Review of Systems Review of Systems Constitutional: Reports no symptoms EENTM: Reports no symptoms Cardiovascular: Reports no symptoms Respiratory: Reports no symptoms Gastrointestinal: Reports no symptoms Genitourinary: Reports no symptoms Musculoskeletal: Reports no symptoms Integumentary: Reports no symptoms Neurological: Reports weakness Psychological: Reports no symptoms Endocrine: Reports no symptoms Hematological/Lymphatic: Reports no symptoms Physical Exam Related Data Allergies: Coded Allergies: Sulfa (Sulfonamide Antibiotics) (Verified Allergy, Intermediate, 01/25/20) Triage Vital Signs Vital Signs Date Time Temp Pulse Resp B/P (MAP) Pulse Ox O2 Delivery O2 Flow Rate FiO2 04/21/20 18:48 141 23 78/47 91 Room Air Vital signs reviewed: Yes Physical Exam CONSTITUTIONAL Constitutional: Present well-developed, Present well-nourished, Present obese HENT HENT: Present normocephalic, Present atraumatic, Present mucosae dry (SEVERE), Present nose normal HENT L/R: Present left ext ear normal, Present right ext ear normal EYES Eyes: Reports PERRL, Reports conjunctivae normal NECK Neck: Present ROM normal PULMONARY Pulmonary: Present effort normal, Present breath sounds normal CARDIOVASCULAR Cardiovascular: Present regular rhythm, Present heart sounds normal, Present capillary refill normal, Present tachycardia (130) GASTROINTESTINAL Abdominal: Present soft, Present nontender, Present bowel sounds normal GENITOURINARY Genitourinary: Present exam deferred SKIN Skin: Present warm, Present dry, Present pale MUSCULOSKELETAL Musculoskeletal: Present ROM normal NEUROLOGICAL Neurological: Present alert, Present oriented x 3, Present no gross motor or sensory deficits, Present other PSYCHOLOGICAL Psychological: Present mood/affect normal, Present judgement normal Results Laboratory Result Diagram: 04/21/20 1815 Laboratory Laboratory Tests Test 04/21/20 21:18 04/21/20 19:36 04/21/20 18:15 Urine Color Brown (YELLOW) Urine Clarity Cloudy (CLEAR) Urine pH 5 (5 - 7) Urine Specific Hayes 1.030 (1.010-1.025) Urine Protein Trace (NEGATIVE) Urine Glucose (UA) Negative (NEGATIVE) Urine Ketones Negative (NEGATIVE) Urine Blood Large (NEGATIVE) Urine Nitrite Negative (NEGATIVE) Urine Bilirubin Small (NEGATIVE) Urine Urobilinogen 0.2 mg/dL (0.2 - 1) Urine Leukocyte Esterase Negative (NEGATIVE) Urine RBC 0-5 /HPF (0-5) Urine WBC None /HPF (0-5) Urine Epithelial Cells None /LPF (NONE) Urine Amorphous Sediment Moderate (FEW) Urine Bacteria Moderate /HPF (NONE) Sodium Level 134 mmol/L (136-145) Potassium Level 6.8 mmol/L (3.5-5.1) Chloride Level 108 mmol/L (98-107) Carbon Dioxide Level 13 mmol/L (22-29) Anion Gap 19.8 mmol/L (8-16) Blood Urea Nitrogen 82 mg/dL (7-26) Creatinine 6.23 mg/dL (0.57-1.11) Estimat Glomerular Filtration Rate 7 ML/MIN (60-) BUN/Creatinine Ratio 13 (6-25) Glucose Level 146 mg/dL (74-118) Calcium Level 6.5 mg/dL (8.4-10.2) Total Bilirubin 0.7 mg/dL (0.2-1.2) Aspartate Amino Transf (AST/SGOT) 69 IU/L (5-34) Alanine Aminotransferase (ALT/SGPT) 29 IU/L (0-55) Alkaline Phosphatase 163 IU/L (40-150) Creatine Kinase 3732 IU/L (29-168) Creatine Kinase MB 13.50 ng/mL (0-5.0) Troponin I 0.010 ng/mL (0-0.300) Total Protein 4.7 g/dL (6.5-8.1) Albumin 2.5 g/dL (3.5-5.0) Globulin 2.2 g/dL (2.3-3.5) Albumin/Globulin Ratio 1.1 (0.8-2.0) Lactic Acid Level 1.7 mmol/L (0.5-2.0) White Blood Count 24.21 x10e3/uL (4.8-10.8) Red Blood Count 4.21 x10e6/uL (3.6-5.1) Hemoglobin 12.3 g/dL (12.0-16.0) Hematocrit 39.3 % (34.2-44.1) Mean Corpuscular Volume 93.3 fL (81-99) Mean Corpuscular Hemoglobin 29.2 pg (28-32) Mean Corpuscular Hemoglobin Concent 31.3 g/dL (31-35) Red Cell Distribution Width 14.6 % (11.7-14.4) Platelet Count 209 x10e3/uL (140-360) Neutrophils (%) (Auto) 87.8 % (38.7-80.0) Lymphocytes (%) (Auto) 4.9 % (18.0-39.1) Monocytes (%) (Auto) 5.5 % (4.4-11.3) Eosinophils (%) (Auto) 0.0 % (0.0-6.0) Basophils (%) (Auto) 0.3 % (0.0-1.0) Neutrophils # (Auto) 21.3 (2.1-6.9) Lymphocytes # (Auto) 1.2 (1.0-3.2) Monocytes # (Auto) 1.3 (0.2-0.8) Eosinophils # (Auto) 0.0 (0.0-0.4) Basophils # (Auto) 0.1 (0.0-0.1) Absolute Immature Granulocyte (auto 0.37 x10e3/uL (0-0.1) Laboratory Tests Test 04/21/20 18:15 White Blood Count 24.21 x10e3/uL (4.8-10.8) Red Blood Count 4.21 x10e6/uL (3.6-5.1) Hemoglobin 12.3 g/dL (12.0-16.0) Hematocrit 39.3 % (34.2-44.1) Mean Corpuscular Volume 93.3 fL (81-99) Mean Corpuscular Hemoglobin 29.2 pg (28-32) Mean Corpuscular Hemoglobin Concent 31.3 g/dL (31-35) Red Cell Distribution Width 14.6 % (11.7-14.4) Platelet Count 209 x10e3/uL (140-360) Neutrophils (%) (Auto) 87.8 % (38.7-80.0) Lymphocytes (%) (Auto) 4.9 % (18.0-39.1) Monocytes (%) (Auto) 5.5 % (4.4-11.3) Eosinophils (%) (Auto) 0.0 % (0.0-6.0) Basophils (%) (Auto) 0.3 % (0.0-1.0) Neutrophils # (Auto) 21.3 (2.1-6.9) Lymphocytes # (Auto) 1.2 (1.0-3.2) Monocytes # (Auto) 1.3 (0.2-0.8) Eosinophils # (Auto) 0.0 (0.0-0.4) Basophils # (Auto) 0.1 (0.0-0.1) Absolute Immature Granulocyte (auto 0.37 x10e3/uL (0-0.1) Lab results reviewed: Yes Imaging Imaging results reviewed: Yes Impressions Procedure: [id number] DX/CHEST SINGLE (PORTABLE) Exam Date: 04/21/20 Exam Time: 1855 REPORT STATUS: Signed Examination: Single AP view of the chest. COMPARISON: AP chest 01/25/2020 INDICATION: Lethargic, low blood pressure IMPRESSION: Exam limited by soft tissue attenuation from patient's body habitus. 1. Lines and Tubes: None 2. Hypoinflated lungs. Persistent elevation of the left hemidiaphragm, likely due to eventration. Hazy opacity in the left lower lung, which may reflect pleural effusion. Recommend erect chest PA and lateral for further evaluation. 3. Cardiomediastinal silhouette is normal. Pulmonary vasculature is normal. 4. No acute bony abnormalities. Signed by: Dr. Tc Garcia M.D. 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: Interpreted by ED physician Date: Apr 21, 2020 Time: 18:45 Rhythm: sinus tachycardia Rate: tachycardia BPM: 140 QRS axis: normal ST segments normal: Yes T waves normal: Yes Other findings: no other findings Clinical Impression: non-specific ECG Critical Care Time Total Critical Care Time (min): 45 Critcal care necessary due to: circulatory failure, sepsis Critcal care time spent by me: blood dram for specimens, develop tx plan w patient/surrogate, discussion w primary provider, interpret cardiac output measures, evaluation patient response to tx, examination of patient, obtaining hx from patient/surrogate, order/perform tx or interventions, order/review laboratory studies, order/review radiographic studies, pulse oximetry, re- evaluation of patient condition, review of old charts Assessment & Plan Medical Decision Making MDM PT WITH HYPOTENSION, WEAKNESS, AND REPORTED AMS, PT WITH DRY MUCOUS MEMBRANES, HYPOVOLEMIC SHOCK FAVORED AT THIS TIME CBC, CMP, LACTIC ACID, BLOOD CULTURES, UA, EKG, CARDIAC ENZYMES, CXR, URINE CULTURE ORDERED TO EVAL FOR RENAL FAILURE/INSUFFICIENCY, SEPSIS, PNEUMONIA, UTI, ELECTROLYTE ABNORMALITY 3 LITER NS IV BOLUS ORDERED CEFEPIME 2 GRAMS IV ORDERED I DID A BEDSIDE FLUID RESUSCITATION EXAM I SPOKE WITH DR SMITH, DR PARRA, AND DR RUIZ, PT TO ICU Assessment & Plan Final Impression: (1) Acute renal failure (ARF) (2) Hypotension (3) Hyperkalemia (4) Sepsis (5) Leukocytosis Depart Disposition: ADMITTED Last Vital Signs Date Time Temp Pulse Resp B/P (MAP) Pulse Ox O2 Delivery O2 Flow Rate FiO2 04/21/20 18:48 141 23 78/47 91 Room Air Home Meds Reported Medications Sennosides/Docusate Sodium (STOOL SOFTENER TABLET) 1 Each Tablet, 1 CAP PO DAILY 01/26/20 Cyanocobalamin (Vitamin B-12) (Vitamin B12) 2,500 Mcg Tablet, 1000 MCG PO DAILY 01/26/20 Cholecalciferol (Vitamin D3) (Vitamin D3) 125 Mcg Tab.rapdis, 125 MCG PO DAILY 01/26/20 Doxepin Hcl (DOXEPIN HCL) 25 Mg Capsule, 300 MG PO HS, #30 CAP 01/26/20 Atorvastatin Calcium (ATORVASTATIN CALCIUM) 20 Mg Tablet, 20 MG PO HS, #30 TAB 01/26/20 Doxycycline Hyclate (DOXYCYCLINE HYCLATE) 100 Mg Capsule, 100 MG PO BID, CAP 01/26/20 Levothyroxine Sodium (LEVOTHYROXINE SODIUM) 50 Mcg Tablet, 50 MCG PO DAILY, #30 TAB 01/26/20 Ondansetron Hcl* (ZOFRAN*) 4 Mg Tablet, 4 MG PO BID 01/26/20 Metoprolol Succinate (METOPROLOL SUCCINATE) 25 Mg Tab.er.24h, 25 MG PO BID 01/26/20 Lisinopril (LISINOPRIL) 2.5 Mg Tablet, 2.5 MG PO DAILY, #30 TAB 01/26/20 Medications in the ED Sodium Chloride 1,000 ml @ 999 mls/hr Q1H1M ONCE IV Last administered on 04/21/20at 19:05; Admin Dose 999 MLS/HR; Start 04/21/20 at 18:45; Stop 04/21/20 at 19:45 Sodium Chloride 1,000 ml @ 999 mls/hr Q1H1M ONCE IV Last administered on 04/21/20at 19:05; Admin Dose 999 MLS/HR; Start 04/21/20 at 18:45; Stop 04/21/20 at 19:45 Sodium Chloride 1,000 ml @ 999 mls/hr Q1H1M ONCE IV ; Start 04/21/20 at 18:45; Stop 04/21/20 at 19:45 Cefepime HCl 100 ml @ 200 mls/hr ONCE ONCE IV ; Start 04/21/20 at 19:30; Stop 04/21/20 at 19:59; Status UNV SYED DORMAN MD Apr 21, 2020 19:38
--- NOTE | 2020-04-21 20:29 | NUR ---
After 3L of NS pt still hypotensive, Dr Garcia at bedside stated he will place a central line at this time. Pt awake, alert & very responsive to stimuli. No further complaint made at this time.
--- NOTE | 2020-04-21 20:50 | NUR ---
Dr Garcia was able to place the Central line at left groin but have to D/C d/t 3-port not drawing any blood return. Provider will attempt to place it at the right EJ this time. Pt was awake & aware of the situation.
[2020-04-21 21:32] LABS: BILIRUBIN,URINE SMALL (NEGATIVE); CLARITY,URINE CLOUDY (CLEAR); COLOR,URINE BROWN (YELLOW); KETONES,URINE NEGATIVE (NEGATIVE); LEUKOCYTE ESTERASE ,URINE NEGATIVE (NEGATIVE); NITRITE,URINE NEGATIVE (NEGATIVE); PROTEIN,URINE DIPSTICK TRACE (NEGATIVE); URINE UROBILINOGEN 0.2 mg/dL (0.2 - 1)
[2020-04-21] MEDS ORDERED: NOREPINEPHRINE 8 MG/D5W 250 ML 250 ML ONE (21:39)
[2020-04-21 21:44] LABS: AMORPHOUS SEDIMENT,URINE MODERATE (FEW); BACTERIA,URINE MODERATE /HPF; RBC,URINE 0-5 /HPF (0-5)
[2020-04-21] MEDS ORDERED: VANCOMYCIN 1GM/NS 250 ML 250 ML IV ONE (21:45)
[2020-04-21] MEDS: NOREPINEPHRINE INJ 4MG/4ML 8 MG in DEXTROSE 5% 250ML 250 ML IV PRN ×2 (21:45→22:30)
--- NOTE | 2020-04-21 21:46 | NUR ---
Dr Martinez at bedside with Dr Garcia evaluating pt & will attempt to place Central line x3 at this time.
[2020-04-21 21:47] LABS: ALBUMIN 2.5 g/dL (3.5-5.0); ALBUMIN/GLOBULIN RATIO 1.1 (0.8-2.0); ANION GAP 19.8 mmol/L (8-16); CREATININE, SERUM 6.23 mg/dL (0.57-1.11)
[2020-04-21 21:52] LABS: CALCIUM 6.5 mg/dL (8.4-10.2); POTASSIUM 6.8 mmol/L (3.5-5.1)
[2020-04-21] MEDS ORDERED: SODIUM BICARBONATE 8.4% INJ 50 ML SYR IV STA (21:53)
[2020-04-21] MEDS ORDERED: DEXTROSE 50% SYRINGE 50 ML IV STA (21:53)
[2020-04-21 21:55] LABS: CREATINE KINASE MB 13.5 ng/mL (0-5.0)
[2020-04-21] MEDS ORDERED: CALCIUM GLUCONATE 10% INJ 13.95 MEQ in SODIUM CHLORIDE 0.9% 100 ML 100 ML IV ONE (22:00)
[2020-04-21] MEDS ORDERED: INSULIN REGULAR, HUMAN 100 UNIT/1 ML 3ML VIAL IV ONE (22:00)
[2020-04-21] MEDS ORDERED: CALCIUM GLUCONATE 10% INJ 0.465 MEQ/ML VIAL ONE (22:24)
[2020-04-21] MEDS ORDERED: SODIUM CHLORIDE 0.9% 100 ML ONE (22:28)
[2020-04-21] MEDS ORDERED: CEFEPIME 2 GM/NS 0.9% 100 ML 100 ML IV SCH (22:30)
[2020-04-21] MEDS ORDERED: ONDANSETRON HCL INJ 2MG/ML 2ML 2 MG/ML VIAL IV PRN (22:30)
--- NOTE | 2020-04-21 23:10 | Diagnostic Imaging Report ---
EXAMINATION: CHEST SINGLE (PORTABLE) INDICATION: EVAL CENTRAL LINE PLACEMENT COMPARISON: Radiograph from today. FINDINGS: Tip of the right internal jugular central venous catheter projects over the cavoatrial junction. No pneumothorax. IMPRESSION: 1. Tip of the right internal jugular central venous catheter projects over the cavoatrial junction. No pneumothorax. 2. Otherwise, no significant change. Signed by: Maciej Laboy MD on 04/21/2020 11:07 PM
[2020-04-22] VITALS (23 sets, daily range): BP systolic 71–126; BP diastolic 38–96
[2020-04-22] MEDS ORDERED: SODIUM CHLORIDE 0.9% IV SCH (00:30)
[2020-04-22] MEDS ORDERED: VASOPRESSIN 60 UNIT in DEXTROSE 5% 50ML 57 ML IV STA (00:30)
--- NOTE | 2020-04-22 00:33 | History and Physical ---
REASON FOR ADMISSION: Lethargy. HISTORY OF PRESENT ILLNESS: This is a 59-year-old white woman, who was brought to the emergency room via emergency medical services because of worsening lethargy and altered mentation for the last 2 days. According to the , the patient has been bed-bound for 2 days and has only drank a few sips of soda. In the emergency room, blood pressure was 70/36, heart rate 130 to 140 beats per minute. The patient states that for the last 2 weeks, she has not felt well and for the last week, she has had cough. The patient states she has had subjective fever and shaking chills for a couple of days. She also complains of frequent urination for the last couple of days. In the emergency room, the patient was found to have white blood cell count of 24,200 with 87% segmented neutrophils. Hemoglobin is 12.3 g/dL. Urinalysis revealed cloudy brown urine with specific gravity 1.030 with moderate bacteria, moderate sediment, but no epithelial cells were appreciated. The patient's BUN and creatinine in the emergency room were 82 and 6.23 respectively. Potassium 6.8, serum bicarbonate 13, sodium is 134, AST and ALT were 69 and 29 respectively, alkaline phosphatase 163. Creatine kinase level is elevated at 3732. Chest film performed in the emergency room revealed hazy opacity in the left lower lung with possible small left pleural effusion. The patient was admitted to the intensive care unit. REVIEW OF SYSTEMS: GENERAL: The patient has lost 20 pounds in the last 2 weeks. She has had fever and chills for the past couple days. She has been very weak. In fact, she has been bed-bound for the last 2 days. HEENT: No headaches. No visual changes. CARDIOVASCULAR/RESPIRATORY: No chest pain. No shortness of breath, but she states she has had a cough for the past few days. GI: No nausea, vomiting, or diarrhea. The patient does have chronic constipation. : The patient states for the past week she has had frequent urination with slight burning. NEUROMUSCULAR: Denies any limb weakness or numbness, but she has been lying in bed for the past couple of days according to her . ALLERGIES: SULFA ANTIBIOTICS. HOME MEDICATIONS: 1. Atorvastatin 20 mg at bedtime. 2. Vitamin D3 of 1000 units daily. 3. Vitamin B12 of 1000 mcg daily. 4. Doxepin 300 mg at bedtime. 5. Doxycycline 100 mg b.i.d. (for chronic left knee joint infection). 6. Levothyroxine 50 mcg daily. 7. Lisinopril 2.5 mg daily. 8. Metoprolol succinate 25 mg b.i.d. 9. Ondansetron 4 mg p.o. b.i.d. p.r.n. nausea and vomiting. 10. Senna with Colace one tablet daily. 11. Lantus insulin 10 units subcutaneous twice a day. PAST MEDICAL HISTORY: 1. Chronic left knee joint infection. 2. Extreme obesity, BMI 41. 3. Type 2 diabetes mellitus. 4. Chronic tachycardia. 5. Stage 2 chronic kidney disease. 6. Bilateral knee degenerative joint disease. 7. Peripheral neuropathy. 8. Hypertriglyceridemia. 9. History of left lower extremity deep venous thrombosis. 10. Hypothyroidism. PAST SURGICAL HISTORY: 1. Right tibia open reduction and internal fixation in January of 2020. 2. Left total knee replacement 3 times. 3. Left knee antibiotic spacer placement twice because of infection. 4. Gastric bypass. 5. Laparoscopic cholecystectomy. SOCIAL HISTORY: This woman is , lives with . 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 The patient has no history of tobacco or alcohol use, but she has been exposed to secondhand tobacco smoke from her for many years. FAMILY HISTORY: Father has diabetes mellitus and coronary artery disease. Mother of lung cancer. PHYSICAL EXAMINATION: GENERAL: She is somnolent, but arousable. The patient looks very weak and ill. She is oriented to self only. VITAL SIGNS: Height 5 feet 6 inches, weight is 240 pounds, BMI is 39 (the patient has lost 20 pounds in the last couple of weeks). Blood pressure in the emergency room was as low as 61/30, currently it is 110/90, but she is on intravenous pressors, namely norepinephrine; heart rate 140; respiratory rate 16; oxygen saturation 97% on 3 L oxygen; temperature 98.6. INTEGUMENT: Skin is warm and dry. The patient has obvious pallor. No jaundice or diaphoresis. HEENT: Anterior sclerae with dry mucous membranes. NECK: Supple. CARDIOVASCULAR: Tachycardic. Regular rate and rhythm. LUNGS: The patient has diminished breath sounds in the bibasilar area. ABDOMEN: Soft. Normal bowel sounds. EXTREMITIES: No edema or deformity. The left knee joint does not look swollen or erythematous. NEUROLOGIC: She is globally weak, but no gross neurologic deficits appreciated. DIAGNOSES: 1. Septic shock. 2. Left lower lobe pneumonia, likely gram-negative monica. 3. Acute renal insufficiency secondary to acute tubular necrosis and hypovolemia. 4. Rhabdomyolysis. 5. Urinary tract infection. PLAN: 1. Intravenous fluids. 2. Intravenous pressors. 3. Send urine and blood cultures. 4. Start intravenous antibiotics. 5. Check for COVID-19 viral infection. 6. Consult home office claim specialist. 7. Consult Nephrology. 8. We will hold all blood pressure medications because of patient's hypothyroidism. 9. We will also check a TSH level since the patient has history of hypothyroidism. 10. We will follow creatine kinase level since she is experiencing rhabdomyolysis. I spent 75 minutes in the care of the patient. MD EMANI Martinez/MARGAUX /[id number]
--- NOTE | 2020-04-22 00:33 | NUR ---
Pt. arrives to unit with HR in 150s, BP in the 70s. MD Martinez updated to patient being maxed on Levophed. Orders received, see OCT.
[2020-04-22] MEDS ORDERED: SODIUM CHLORIDE 0.9% 100 ML ONE (00:38)
[2020-04-22] MEDS ORDERED: VASOPRESSIN INJ 20 UNIT/ML VIAL ONE ×2 (00:38→00:44)
[2020-04-22] MEDS ORDERED: SODIUM CHLORIDE 0.9% 1000ML 1,000 ML ONE (00:43)
--- NOTE | 2020-04-22 00:43 | Operative Report ---
DATE OF PROCEDURE: SURGEON: Herb Martinez MD PROCEDURE: Central line placement under ultrasound guidance. PREOPERATIVE DIAGNOSIS: Acute renal failure. POSTOPERATIVE DIAGNOSIS: Acute renal failure. CONSENT: Consent was obtained from the patient. Medications. ANESTHESIA: 1% lidocaine for local anesthesia. PROCEDURE IN DETAIL: The patient was placed in a supine position. The right neck was prepped sterilely with chlorhexidine. A full length sterile drape was used. Sterile gown, sterile mask, and sterile gloves were used as well. An ultrasound machine was used to locate the right internal jugular vein. The vein was cannulated under direct visualization with a 16-gauge needle. A wire was then passed through the needle. A dilator was used to open the skin. A triple-lumen catheter was passed over the wire by the Seldinger technique. All the ports flushed. COMPLICATIONS: None. ESTIMATED BLOOD LOSS: None. Herb Martinez MD [facility] /[id number]
[2020-04-22] MEDS: CEFEPIME 1GM/NS 0.9% 50 ML 50 ML IV SCH ×2 (00:49→23:00)
[2020-04-22] MEDS: AZITHROMYCIN 500MG/NS 250 ML 250 ML IV SCH ×2 (00:50→23:00)
[2020-04-22] MEDS ORDERED: SODIUM BICARBONATE 8.4% SYRING 150 ML ONE (00:54)
[2020-04-22] MEDS ORDERED: DEXTROSE 5% 1,000 ML IV ONE (00:57)
--- NOTE | 2020-04-22 00:58 | Consultation ---
DATE OF CONSULTATION: Pulmonary Critical Care Consultation CHIEF COMPLAINT: Weakness and elevated white blood cell count. HISTORY OF PRESENT ILLNESS: The patient is a 59-year-old woman. She has a history of prior osteomyelitis and chronic kidney disease stage 2 to 3. She came in complaining of worsening malaise and fatigue. She did not complain of vomiting or diarrhea. She denied any chest pain. She had no dyspnea. After arriving in the emergency department, she was found to have an elevated white blood cell count of 24, along with an elevated creatinine of 6 and potassium is 6.8. She also has an elevated white count of 24. She received several liters of fluid, but still complains of weakness and has some low blood pressure. She was started on low-dose Levophed. PAST SURGICAL HISTORY: 1. 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 2. Status post gastric bypass. 3. Status post cholecystectomy. PAST MEDICAL HISTORY: 1. Chronic left knee infection. 2. Extreme obesity. 3. Peripheral neuropathy. 4. Deep vein thrombosis. 5. Hypothyroidism. SOCIAL HISTORY: The patient has never been a smoker. She is not a drinker. FAMILY HISTORY: Family history is significant for diabetes and coronary artery disease. She also has a history of lung cancer. ALLERGIES: THE PATIENT IS ALLERGIC TO SULFA. REVIEW OF SYSTEMS: The patient does not complain of fevers. She does note malaise. She does not have headache. She denies neck pain. She has no dyspnea or cough. She is not having any abdominal pain. There is no nausea or vomiting. She has no leg edema. PHYSICAL EXAMINATION: VITAL SIGNS: Her blood pressure is now 85/50 and she is being started on Levophed after receiving 3 L of fluid. Her heart rate is 120. Her saturation is 98% on 2 L. HEENT: Shows no facial swelling or erythema. LYMPHATIC: Shows no submandibular, cervical, or supraclavicular adenopathy. CARDIAC: Reveals tachycardia with normal S1 and S2. LUNGS: Auscultation of lungs reveals crackles at the bases. There is no wheezing. ABDOMEN: Soft and nontender. There is no rebound or guarding. EXTREMITIES: Show no leg edema or calf tenderness. There is no cyanosis or clubbing. SKIN: Shows no rashes. LABORATORY DATA: White blood cell count is 24.2, hemoglobin is 12.3, and platelet count is 209. The BUN to creatinine ratio is 82 to 6.23 with a potassium of 6.8 and carbon dioxide of 13. AST is 69 and ALT is 29. Albumin is 2.5. RADIOGRAPHIC DATA: Chest x-ray shows persistent elevation of the hemidiaphragm on the right side. There is some basilar atelectasis. IMPRESSION: 1. Leukocytosis and sepsis with unclear source. 2. Community-acquired pneumonia. 3. Acute renal failure. 4. Hyperkalemia. 5. Chronic left knee infection. 6. Diabetes. 7. Extreme obesity. PLAN: 1. Continue aggressive IV hydration now. 2. The patient to be started on bicarb drip as recommended by Nephrology. 3. The patient has been pancultured and is receiving broad-spectrum antibiotics in the form of vancomycin and cefepime. 4. Wean Levophed as tolerated. 5. Continue to monitor potassium. 6. Continue to monitor and control blood sugars. Herb Martinez MD [facility] /[id number]
[2020-04-22] MEDS: SODIUM BICARBONATE 8.4% SYRING 150 ML in DEXTROSE 5% 1,000 ML IV SCH ×4 (01:32→23:24)
[2020-04-22] MEDS ORDERED: NOREPINEPHRINE 8 MG/D5W 250 ML 250 ML ONE (02:54)
[2020-04-22] MEDS: VASOPRESSIN 60 UNIT in DEXTROSE 5% 50ML 57 ML IV SCH (04:00)
[2020-04-22 04:55] LABS: BASOPHILS # (AUTO) 0.1 (0.0-0.1); BASOPHILS % 0.4 % (0.0-1.0); EOSINOPHILS # (AUTO) 0.1 (0.0-0.4); EOSINOPHILS % 0.3 % (0.0-6.0); HEMATOCRIT 33.9 % (34.2-44.1); HEMOGLOBIN 11.1 g/dL (12.0-16.0); LYMPHOCYTES # (AUTO) 1.2 (1.0-3.2); LYMPHOCYTES % 4.3 % (18.0-39.1); MEAN CORPUSCULAR HEMOGLOBIN 30.2 pg (28-32); MEAN CORPUSCULAR HGB CONC 32.7 g/dL (31-35); MEAN CORPUSCULAR VOLUME 92.4 fL (81-99); MONOCYTES # (AUTO) 2.2 (0.2-0.8); NEUTROPHILS # (AUTO) 24.1 (2.1-6.9); PLATELET COUNT 218 x10e3/uL (140-360); RED BLOOD COUNT 3.67 x10e6/uL (3.6-5.1); RED CELL DISTRIBUTION WIDTH 14.5 % (11.7-14.4)
[2020-04-22 05:21] LABS: ALBUMIN 2.6 g/dL (3.5-5.0); ALBUMIN/GLOBULIN RATIO 1.1 (0.8-2.0); ANION GAP 18.7 mmol/L (8-16); CREATININE, SERUM 5.52 mg/dL (0.57-1.11); POTASSIUM 5.7 mmol/L (3.5-5.1)
[2020-04-22 05:29] LABS: CALCIUM 6.9 mg/dL (8.4-10.2)
[2020-04-22 05:58] LABS: CREATINE KINASE MB 24.9 ng/mL (0-5.0)
[2020-04-22] MEDS: LEVOTHYROXINE SODIUM 50 MCG TAB PO SCH (06:30)
[2020-04-22 06:52] LABS: BAND NEUTROPHILS % (MANUAL) 20 %; LYMPHOCYTES % (MANUAL) 5 % (19-48); NEUTROPHILS % (MANUAL) 67 % (40-74)
[2020-04-22 06:53] LABS: MONOCYTES % (MANUAL) 8 % (3.4-9.0)
[2020-04-22] MEDS ORDERED: AMIODARONE HCL 900 MG in DEXTROSE 5% 500ML 500 ML IV ONE (08:30)
--- NOTE | 2020-04-22 08:34 | Diagnostic Imaging Report ---
Examination: Single AP view of the chest. COMPARISON: 04/21/2020 INDICATION: Pneumonia DISCUSSION: Right internal jugular catheter is stable in position with the tip projecting over the high right atrium. Lung volumes remain low with atelectasis in the bases. No new consolidation or pneumothorax. Stable cardiomediastinal silhouette No acute osseous abnormalities. IMPRESSION: Stable position of right internal jugular central venous catheter. Low lung volumes with bibasilar atelectasis, left worse than right, similar to 04/21/2020. No new consolidations. Signed by: Dr. Ajay Cifuentes M.D. on 04/22/2020 8:31 AM
[2020-04-22] MEDS: METOPROLOL SUCCINATE 25 MG TAB XL PO SCH ×2 (08:36→09:20)
[2020-04-22] MEDS ORDERED: DEXTROSE 50% SYRINGE 50 ML IV PRN (08:45)
[2020-04-22] MEDS ORDERED: AMIODARONE HCL 100 ML IV ONE (09:00)
[2020-04-22] MEDS: ALBUMIN 25% 25GM 100ML 0.25 GM/ML BTL IV SCH ×3 (09:36→21:00)
--- NOTE | 2020-04-22 09:39 | Progress Note ---
DATE: SUBJECTIVE: The patient has remained on a bicarb drip overnight. She had 875 mL of urine output over the past 10 hours. She continues to require Levophed at 30 mcg as well as vasopressin at 0.04. She continues to have tachycardia and rate of 140 to 150. The patient is somnolent, but is arousable and responds. She does not have any fever. PHYSICAL EXAMINATION: VITAL SIGNS: The heart rate is 145 to 150. Her blood pressure is now 92/65 on vasopressin at 0.04 as well as Levophed at 30 mcg. She is on 2 L of oxygen. Her saturation is 100%. HEENT: Shows no facial swelling or erythema. LYMPHATIC: Shows no submandibular, cervical, or supraclavicular adenopathy. CARDIAC: Reveals tachycardia with a regular rate and rhythm. There is no murmur or rub. LUNGS: Auscultation of lungs reveals decreased breath sounds at the bases. There is no wheezing. ABDOMEN: Soft and nontender. There is no rebound or guarding. EXTREMITIES: Show no leg edema or calf tenderness. There is no cyanosis or clubbing. SKIN: Shows no rashes. NEUROLOGIC: Shows the patient to be somnolent, but arousable. There are no focal abnormalities. LABORATORY DATA: The white blood cell count is 28.03 and the hemoglobin is 11.1. The platelet count is 218. The BUN to creatinine ratio is 75 to 5.52. The potassium is 5.7 and the carbon dioxide is 15. The chloride is 106. Blood sugars 203 to 314. Troponin I 0.014 and the albumin is 2.6. RADIOGRAPHIC DATA: Chest x-ray shows elevated hemidiaphragm with possible basilar atelectasis or infiltrate. IMPRESSION: 1. Acute renal failure. 2. Community-acquired pneumonia with septic shock, present on admission. 3. Hyperkalemia. 4. Chronic left knee infection in the past. 5. Diabetes. 6. Extreme obesity. PLAN: 1. Continue current antibiotics. 2. The patient may need evaluation for any recurrent knee infection. 3. Await culture results. 4. The patient has received several liters of fluid and is now on a bicarb drip. We will continue this. 5. Wean pressors as tolerated. 6. Amiodarone for tachycardia. 7. Echocardiogram. 8. Continue to monitor electrolytes. Greater than 35 minutes in direct critical care time. MD CORNELIO Foreman/MARGAUX /[id number]
--- OUTSIDE RECORDS SUMMARY | 2020-04-22 10:32 | XMS REPORT | Continuity of Care Document ---
Author Author [facility] Organization [facility] Address [address] [place] [address] Phone Unavailable Care Team Providers Care [employer] Name Role Phone MD LAURY SMITH PCP Jamil SMITH Attphymontez Unavailable Jamil SMITH Admphymontez Unavailable Payers Payer Name Policy Type Policy Number Effective Date Expiration Date Montez Zaragoza Ppo [id number] 2019 00:00:00 [facility] Cdc Review [id number] [facility] Problems Condition Name Condition Details Condition Category Status Onset Date Resolution Date Last Treatment Date Treating Clinician Comments Source Chronic tachycardia Problem Active [facility] Fracture of right tibia Problem Active [facility] Allergies, Adverse Reactions, Alerts Allergy Name Allergy Type Status Severity Reaction(s) Onset Date Inacti ve Date Treating Clinician Comments Source Sulfa (Sulfonamide Antibiotics) Allergy to substance Active Moder ate 2020-01-25 00:00:00 [facility] Social History Social Habit Start Date Stop Date Quantity Comments Source Sex Assigned At 1960 00:00:00 1960 00:00:00 Female [facility] Medications Ordered Medication Name Filled Medication Name Start Date Stop Da te Current Medication? Ordering Clinician Indication Dosage Frequency Signature (SIG) Comments Components Source Atorvastatin Calcium Atorvastatin Calcium Yes 20 Bedtime [facility] Cholecalciferol (Vitamin D3) (Vitamin D3) 125 Mcg TAB. RAPDIS Cholecalciferol (Vitamin D3) (Vitamin D3) 125 Mcg TAB.RAPDIS Yes 125 Daily [facility] Cyanocobalamin (Vitamin B-12) (Vitamin B12) 2,500 Mcg TABLET Cyanocobalamin (Vitamin B-12) (Vitamin B12) 2,500 Mcg TABLET Yes 1000 Daily [facility] Doxepin Hcl Doxepin Hcl Yes 300 Bedtime [facility] Doxycycline Hyclate Doxycycline Hyclate Yes 100 Twice A Day [facility] Levothyroxine Sodium Levothyroxine Sodium Yes 50 Daily [facility] Lisinopril Lisinopril Yes 2.5 Daily [facility] Metoprolol Succinate Metoprolol Succinate Yes 25 Twice A Day [facility] Ondansetron Hcl (Zofran*) 4 Mg TABLET Ondansetron Hcl (Zofran*) 4 M g TABLET Yes 4 Twice A Day [facility] Sennosides/Docusate Sodium (Stool Softener Tablet) 1 E ach TABLET Sennosides/Docusate Sodium (Stool Softener Tablet) 1 Each TABLET Yes 1 Daily [facility] Vital Signs Vital Name Observation Time Observation Value Comments Source Body Temperature 2020-01-29 11:56:00 97.9 [degF] [facility] BMI (Body Mass Index) 2020-01-26 03:00:00 40.7 kg/m2 [facility] Weight 2020-01-25 19:24:00 260 [lb_av] [facility] Procedures Procedure Date / Time Performed Performing Clinician [facility] e X-ray of chest, single view 2020-01-25 00:00:00 [facility] Results Test Description Test Time Test Comments Results Result Comments Source CHEST SINGLE (PORTABLE) 2020-04-22 08:29:00 [place] [address] Patient Name: VIJAY HARRIS MR #: [id number] : 1960 Age/Sex: 59/F Req #: [id number] Adm Physician: LAURY SMITH MD Ordered by: ALFREDO PARRA MD Report #: [id number] Location: ICU Room/Bed: ICU 195-1 Procedure: [id number] DX/CHEST SINGLE (PORTABLE) Exam Date: 04/22/20 Exam Time: 0536 REPORT STATUS: Signed Examination: Single AP view of the chest. COMPARISON: 04/21/2020 INDICATION: Pneumonia DISCUSSION: Right internal jugular catheter is stable in position with the tip projecting over the high right atrium. Lung volumes remain low with atelectasis in the bases. No new consolidation or pneumothorax. Stable cardiomediastinal silhouette No acute osseous abnormalities. IMPRESSION: Stable position of right internal jugular central venous catheter. Low lung volumes with bibasilar atelectasis, left worse than right, similar to 04/21/2020. No new consolidations. Signed by: Dr. Alicia Simmons M.D. on 04/22/2020 8:31 AM Dictated By: ALICIA SIMMONS MD 0 Transcribed By: KARMEN on 04/22/20830 COPY TO: ALFREDO PARRA MD CHEST SINGLE (PORTABLE) 2020-04-21 23:04:00 [place] [address] Patient Name: VIJAY HARRIS MR #: [id number] : 1960 Age/Sex: 59/F Req #: [id number] Adm Physician: LAURY SMITH MD Ordered by: SYED DORMAN MD Report #: [id number] Location: [facility]OLD Room/Bed: [place] [address] Procedure: DX/CHEST SINGLE (PORTABLE) Exam Date: 04/21/20 Exam Time: 3 REPORT STATUS: Signed EXAMINATION: CHEST SINGLE (PORTABLE) INDICATION: EVAL CENTRAL LINE PLACEMENT COMPARISON: Radiograph from today. FINDINGS: Tip of the right internal jugular central venous catheter projects over the cavoatrial junction. No pneumothorax. IMPRESSION: 1. Tip of the right internal jugular central venous catheter projects over the cavoatrial junction. No pneumothorax. 2. Otherwise, no significant change. Signed by: Bonny Victoria MD on 04/21/2020 11:07 PM Dictated By: BONNY VICTORIA MD 06 Transcribed By: KARMEN on 04/21/202306 COPY TO: SYED DORMAN MD CHEST SINGLE (PORTABLE) 2020-04-21 19:11:00 [place] [address] Patient Name: VIJAY HARRIS MR #: [id number] : 1960 Age/Sex: 59/F Req #: [id number] Adm Physician: Ordered by: SYED DORMAN MD Report #: [id number] Location: ER Room/Bed: Procedure: [id number] DX/CHEST SINGLE (PORTABLE) Exam Date: 04/21/20 Exam Time: 1855 REPORT STATUS: Signed Examination: Single AP view of the chest. COMPARISON: AP chest 01/25/2020 INDICATION: Lethargic, low blood pressure IMPRESSION: Exam limited by soft tissue attenuation from patient's body habitus. 1. Lines and Tubes: None 2. Hypoinflated lungs. Persistent elevation of the left hemidiaphragm, likely due to eventration. Hazy opacity in the left lower lung, which may reflect pleural effusion. Recommend erect chest PA and lateral for further evaluation. 3. Cardiomediastinal silhouette is normal. Pulmonary vasculature is normal. 4. No acute bony abnormalities. Signed by: Dr. Roberto Garcia M.D. on 04/21/2020 7:13 PM Dictated By: ROBERTO GARCIA MD 12 Transcribed By: KARMEN on 04/21/201912 COPY TO: SYED DORMAN MD Capillary blood glucose measurement by glucometer (mas s/volume) 2020-01-29 11:10:00 Test Item Bedside Glucose (test code = 63931-5) 147 70-120 Meter ID: [id number] Grande Regional HospitalBlood leukocytes automated count (number/volume)2020-01-29 04:52:00* Test Item Value Reference Range Interpretation Comments White Blood Count (test code = 6690-2) 4.48 4.8-10.8 [facility] erythrocytes automated count (number/volume)2020-01-29 04:52:00* Test Item Value Reference Range Interpretation Comments Red Blood Count (test code = 789-8) 3.34 3.6-5.1 [facility] CenterBlood hemoglobin measurement (moles/volume)2020-01-29 04:52:00* Test Item Value Reference Range Interpretation Comments Hemoglobin (test code = 49835-5) 10.5 12.0-16.0 [facility] CenterAutomated blood hematocrit (volume fraction)2020-01-29 04:52:00* Test Item Value Reference Range Interpretation Comments Hematocrit (test code = 4544-3) 31.4 34.2-44.1 [facility] CenterAutomated erythrocyte mean corpuscular sqqdmz0339-94-20 04:52:00* Test Item Value Reference Range Interpretation Comments Mean Corpuscular Volume (test code = 787-2) 94.0 81-99 [facility] CenterAutomated erythrocyte mean corpuscular hemoglobin (mass per erythrocyte)2020-01-29 04:52:00* Test Item Value Reference Range Interpretation Comments Mean Corpuscular Hemoglobin (test code = 785-6) 31.4 28-32 [facility] CenterAutomated erythrocyte mean corpuscular hemoglobin concentration measurement (mass/volume)2020-01-29 04:52:00* Test Item Value Reference Range Interpretation Comments Mean Corpuscular Hemoglobin Concent (test code = 786-4) 33.4 31-35 [facility] CenterRDW DfwXz-Hmj6006-78-26 04:52:00* Test Item Value Reference Range Interpretation Comments Red Cell Distribution Width (test code = 83481-8) 14.6 11.7 -14.4 [facility] CenterAutomated blood platelet count (count/volume)2020-01-29 04:52:00* Test Item Value Reference Range Interpretation Comments Platelet Count (test code = 777-3) 171 140-360 [facility] CenterAutcarepartners rehabilitation hospitaled blood segmented neutrophil count as percentage of total hqpetchwpk7518-74-73 04:52:00* Test Item Value Reference Range Interpretation Comments Neutrophils (%) (Auto) (test code = 82672-6) 64.4 38.7-80.0 [facility] CenterAutomated blood lymphocyte count as percentage ot total asabonufer4465-48-84 04:52:00* Test Item Value Reference Range Interpretation Comments Lymphocytes (%) (Auto) (test code = 736-9) 21.2 18.0-39.1 [facility] CenterAutomated blood monocyte count as percentage of total rutwibfrwe9984-25-92 04:52:00* Test Item Value Reference Range Interpretation Comments Monocytes (%) (Auto) (test code = 5905-5) 9.2 4.4-11.3 [facility] CenterAutomated blood eosinophil count as percentage of total hcxgxfxeax2727-76-60 04:52:00* Test Item Value Reference Range Interpretation Comments Eosinophils (%) (Auto) (test code = 713-8) 0.7 0.0-6.0 [facility] CenterAutomated blood basophil count as percentage of total ubbudkyvyc8529-68-37 04:52:00* Test Item Value Reference Range Interpretation Comments Basophils (%) (Auto) (test code = 706-2) 0.7 0.0-1.0 [facility] CenterFluoroscopic procedure less than one hour gngrtsbj5710-36-17 04:52:00* Test Item Value Reference Range Interpretation Comments IM GRANULOCYTES % (test code = IM GRANULOCYTES %) 3.8 0.0- 1.0 [facility] CenterAutomated blood neutrophil count 2020-01-29 04:52:00* Test Item Value Reference Range Interpretation Comments Neutrophils # (Auto) (test code = 751-8) 2.9 2.1-6.9 [facility] CenterBlood lymphocytes count (number/volume) 2020-01-29 04:52:00* Test Item Value Reference Range Interpretation Comments Lymphocytes # (Auto) (test code = 21331-8) 1.0 1.0-3.2 [facility] CenterBll[facility] monocytes automated count (number/volume)2020-01-29 04:52:00* Test Item Value Reference Range Interpretation Comments Monocytes # (Auto) (test code = 742-7) 0.4 0.2-0.8 [facility] CenterAutomated blood eosinophil count 2020-01-29 04:52:00* Test Item Value Reference Range Interpretation Comments Eosinophils # (Auto) (test code = 711-2) 0.0 0.0-0.4 [facility] CenterAutomated blood basophil count (count/volume)2020-01-29 04:52:00* Test Item Value Reference Range Interpretation Comments Basophils # (Auto) (test code = 704-7) 0.0 0.0-0.1 [facility] CenterFluoroscopic procedure less than one hour dpkhgawr3975-83-83 04:52:00* Test Item Value Reference Range Interpretation Comments Absolute Immature Granulocyte (auto (axel t code = Absolute Immature Granulocyte (auto) 0.17 0-0.1 [facility] Hospitaler[facility] or plasma sodium measurement (moles/volume)2020-01-29 04:52:00* Test Item Value Reference Range Interpretation Comments Sodium Level (test code = 2951-2) 142 136-145 [facility] Hospitalerum or plasma potassium measurement (moles/volume)2020-01-29 04:52:00* Test Item Value Reference Range Interpretation Comments Potassium Level (test code = 2823-3) 3.6 3.5-5.1 [facility] Hospitalerum or plasma chloride measurement (moles/volume)2020-01-29 04:52:00* Test Item Value Reference Range Interpretation Comments Chloride Level (test code = 2075-0) 111 98-107 [facility] Hospitalerum or plasma carbon dioxide, total measurement (moles/volume)2020-01-29 04:52:00* Test Item Value Reference Range Interpretation Comments Carbon Dioxide Level (test code = 2028-9) 25 22-29 [facility] Hospitalerum or plasma anion ewk6947-87-90 04:52:00* Test Item Value Reference Range Interpretation Comments Anion Gap (test code = 18999-3) 9.6 8-16 [facility] Hospitalerum or plasma urea nitrogen measurement (mass/volume)2020-01-29 04:52:00* Test Item Value Reference Range Interpretation Comments Blood Urea Nitrogen (test code = 3094-0) 8 7-26 [facility] Hospitalerum or plasma creatinine measurement (mass/volume)2020-01-29 04:52:00* Test Item Value Reference Range Interpretation Comments Creatinine (test code = 2160-0) 0.85 0.57-1.11 [facility] Hospitalerum or plasma urea nitrogen/creatinine mass xpyts1584-59-49 04:52:00* Test Item Value Reference Range Interpretation Comments BUN/Creatinine Ratio (test code = 3097-3) 9 6-25 [facility] CenterEstimated glomerular filtration rate (GFR) zjzyzzncoeaes6898-91-83 04:52:00* Test Item Value Reference Range Interpretation Comments Estimat Glomerular Filtration Rate (test code = 641884342) > 60 >60 Ranges were taken from the National Kidney Disease Education Program and the [facility] [employer] literature.Reference ranges:60 or greater: Wacwio17-61 ( for 3 consecutive months): Chronic kidney disease 15 or less: Kidney failureParis Regional Medical CenterGlucose zoqrzlmkyps3923-56-06 04:52:00* Test Item Value Reference Range Interpretation Comments Glucose Level (test code = OEB8604) 144 74-118 [facility] Hospitaler[facility] or plasma calcium measurement (mass/volume)2020-01-29 04:52:00* Test Item Value Reference Range Interpretation Comments Calcium Level (test code = 07678-2) 8.6 8.4-10.2 [facility] CenterFluoroscopic procedure less than one hour wwgzqcmc6768-70-06 05:10:00* Test Item Value Reference Range Interpretation Comments Hemoglobin A1c Percent (test code = Hemoglobin A1c Percent) 9.2 4.0-7.0 [facility] Hospitalerum or plasma total bilirubin measurement (mass/volume)2020-01-28 05:10:00* Test Item Value Reference Range Interpretation Comments Total Bilirubin (test code = 1975-2) 0.3 0.2-1.2 [facility] CenterFluoroscopic procedure less than one hour vytjuhua0234-36-84 05:10:00* Test Item Value Reference Range Interpretation Comments Aspartate Amino Transf (AST/SGOT) (test code = Aspartate Amino Transf (AST/SGOT)) 20 5-34 [facility] Hospitalerum or plasma alanine aminotransferase measurement (enzymatic activity/volume)2020-01-28 05:10:00* Test Item Value Reference Range Interpretation Comments Alanine Aminotransferase (ALT/SGPT) (test code = 1742-6) 22 0-55 [facility] Hospitalerum or plasma protein measurement (mass/volume)2020-01-28 05:10:00* Test Item Value Reference Range Interpretation Comments Total Protein (test code = 2885-2) 5.4 6.5-8.1 [facility] Hospitaler[facility] or plasma albumin measurement (mass/volume)2020-01-28 05:10:00* Test Item Value Reference Range Interpretation Comments Albumin (test code = 1751-7) 2.8 3.5-5.0 [facility] CenterPlasma globulin measurement (mass/volume) 2020-01-28 05:10:00* Test Item Value Reference Range Interpretation Comments Globulin (test code = 31789-3) 2.6 2.3-3.5 [facility] Hospitalerum or plasma albumin/globulin mass xtwxc5610-95-00 05:10:00* Test Item Value Reference Range Interpretation Comments Albumin/Globulin Ratio (test code = 1759-0) 1.1 0.8-2.0 [facility] Hospitaler[facility] or plasma alkaline phosphatase measurement (enzymatic activity/volume)2020-01-28 05:10:00* Test Item Value Reference Range Interpretation Comments Alkaline Phosphatase (test code = 6768-6) 105 40-150 [facility] CenterFluoroscopic procedure less than one hour tzlnxlca7222-04-45 14:40:00* Test Item Value Reference Range Interpretation Comments Lactic Acid Level (test code = Lactic Acid Level) 1.5 0.5- 2.0 [facility] CenterUrine color ezmshztromlme8598-49-88 01:18:00* Test Item Value Reference Range Interpretation Comments Urine Color (test code = 5778-6) YELLOW YELLOW [facility] CenterUrine skmbuwa6734-90-60 01:18:00* Test Item Value Reference Range Interpretation Comments Urine Clarity (test code = 31320-0) CLOUDY CLEAR [facility] Hospitalpecific gravity of Urine by Test strip 2020-01-26 01:18:00* Test Item Value Reference Range Interpretation Comments Urine Specific [place] (test code = 5811-5) >=1.030 1.010-1.02 5 [facility] CenterUrine pH measurement by automated test rjkys0412-38-76 01:18:00* Test Item Value Reference Range Interpretation Comments Urine pH (test code = 64741-8) 5.5 5-7 [facility] CenterUrine leukocyte esterase detection by ayubeecc1349-97-23 01:18:00* Test Item Value Reference Range Interpretation Comments Urine Leukocyte Esterase (test code = 5799-2) TRACE NEGATIVE [facility] CenterUrine nitrite hckmcnfgd7110-82-73 01:18:00* Test Item Value Reference Range Interpretation Comments Urine Nitrite (test code = 53069-3) NEGATIVE NEGATIVE [facility] CenterUrine protein measurement by test strip (mass/volume)2020-01-26 01:18:00* Test Item Value Reference Range Interpretation Comments Urine Protein (test code = 5804-0) 1+ NEGATIVE [facility] CenterUrine glucose gnlrwivre0070-39-45 01:18:00* Test Item Value Reference Range Interpretation Comments Urine Glucose (UA) (test code = 2349-9) 2+ NEGATIVE [facility] CenterUrine ketones detection by automated test cjnrf1928-29-86 01:18:00* Test Item Value Reference Range Interpretation Comments Urine Ketones (test code = 30496-7) NEGATIVE NEGATIVE [facility] CenterUrine urobilinogen measurement by test strip (mass/volume)2020-01-26 01:18:00* Test Item Value Reference Range Interpretation Comments Urine Urobilinogen (test code = 96650-6) 0.2 0.2-1 [facility] CenterUrine total bilirubin measurement (mass/volume)2020-01-26 01:18:00* Test Item Value Reference Range Interpretation Comments Urine Bilirubin (test code = 1978-6) NEGATIVE NEGATIVE [facility] CenterUrine erythrocytes rjejeqqcr7714-34-19 01:18:00* Test Item Value Reference Range Interpretation Comments Urine Blood (test code = 08019-3) TRACE NEGATIVE [facility] CenterAutomated urine sediment leukocyte count by microscopy (number/high power field)2020-01-26 01:18:00* Test Item Value Reference Range Interpretation Comments Urine WBC (test code = 5821-4) >50 0-5 [facility] CenterErythrocytes detection in urine sediment by light dpktxlkrak4155-60-61 01:18:00* Test Item Value Reference Range Interpretation Comments Urine RBC (test code = 82373-3) 6-10 0-5 [facility] CenterBacteria detection in urine sediment by light alfogimsaa1854-77-44 01:18:00* Test Item Value Reference Range Interpretation Comments Urine Bacteria (test code = 05867-3) MODERATE NONE [facility] CenterEpithelial cells detection in urine sediment by light flrwdrhutv7773-50-11 01:18:00* Test Item Value Reference Range Interpretation Comments Urine Epithelial Cells (test code = 55002-2) FEW NONE [facility] CenterTransitional cells detection in urine sediment by light ywsemjpntu2944-91-38 01:18:00* Test Item Value Reference Range Interpretation Comments Urine Transitional Epithelial Cells (test code = 8249-5) FEW NONE [facility] CenterFluoroscopic procedure less than one hour qdouefix1543-91-80 23:00:00* Test Item Value Reference Range Interpretation Comments Coronavirus (PCR) (test code = Coronavirus (PCR)) NOT DETECTED NOTD ETECTED SARS-COV-2 (COVID19), HIGHRISK, RT-PCRNegative results do not preclude SARS-CoV- 2 infection and should not be used as the sole basis for patient management deci sions. Negative results must be combined with clinical observations, patient his tory, and epidemiological information. Optimum specimen types and timing for pea k viral levels during infections caused by SARS-CoV-2 have not been determined. Collection of multiple specimens ot types of specimens may be necessary to detec t virus. Improper specimen collection and handling, sequence variability under p rimers/probes, or organism present below the limit of detection may lead to fals e negative results. Positive and negative predictive values of testing are highl y dependent on prevalance. False negative test results are more likely when prev alence is high.The expected result is negative (not detected).The SARS-CoV-2 axel t is intended for the qualitative detection of nucleic acid from SARS-CoV-2 in n asopharyngeal and oropharyngeal swab samples from patients who meet COVID-19 cli nical and or epidemiological criteria. For lower respiratory tract specimens, th e assay is submitted for authoriztion by FDA under an Emergency Use Authorizatio n (EUA). Testing methodology is real time RT-PCR. If received as separate collec tion devices, nasopharygeal and oropharyngeal specimens are combined for analysi s. Additional specimens may be split to a separate accession for analysi and rep orting as this test includes a single unit of service.Test results must be corre lated with clinical presentation and evaluated in the context of other laborator y and epidemiologic data. Test performance can be affected because the epidemiol ogy and clinical spectrum of infection caused by SARS-CoV-2 is not fully known. For example, the optimum types of specimens to collect and when during the cours e of infection these specimens are most likely to contain detectable viral RNA m ay not be known.This test has not been Food and Drug Administration (FDA) cleare d or approved and has been authorized by FDA under an Emergency Use Authorizatio n (EUA). The test is only authorized for the duration of the declaration that ci rcumstances exist justifying the authorization of emergency use of in vitro diag nostic tests for detection and/or diagnosis of SARS-CoV-2 under section 564(b) o f the Act, 21 U.S.C. section 360bbb-3(b)(1), unless the authorization is termina jovany or revoked sooner. [facility] are certified under the C linical Laboratory Improvement Amendments of 1988 (CLIA), 42 U.S.C. section 263a , to perform high complexity tests.Testing performed by [facility] [id number] [place] [address] [phone] Director: Ronald Rajan M.D.CLIA # [id number] [facility] Center Prothrombin time (PT) in platelet poor plasma by coagulation dvjro6594-29-41 22:55:00* Test Item Value Reference Range Interpretation Comments Prothrombin Time (test code = 5902-2) 12.2 11.9-14.5 [facility] CenterINR in Platelet poor plasma by Coagulation atwhc6861-82-01 22:55:00* Test Item Value Reference Range Interpretation Comments Prothromb Time International Ratio (test code = 6301-6) 0.86 Oral Anticoagulant Therapy INR Values:1. Low Intensity Therapy 1.5 - 2.02 . Moderate Intensity Therapy 2.0 - 3.03. High Intensity Therapy(1) 2.5 - 3. 54. High Intensity Therapy(2) 3.0 - 4.05. Panic Value INR > 5.0 [facility] CenterActivated partial thromboplastin time (aPTT) in platelet poor plasma by coagulation pumhy0989-45-86 22:55:00* Test Item Value Reference Range Interpretation Comments Activated Partial Thromboplast Time (test code = 96711-5) 24.4 23.8-35.5 [facility] SINGLE (NOT PORTABLE)2020-01-25 22:35:00 [facility] [address] [place] [address] Patient Name: VIJAY HARRIS MR #: [id number] : 1960 Age/Sex: 59/F Req #: [id number] Adm Physician: Ordered by: SYED DORMAN MD Report #: [id number] Location: ER Room/Bed: Procedure: [id number] DX/CHEST SINGLE (NOT PORTABLE) Exam Date: 01/25/20 Exam Time : 2211 REPORT STATUS: Signed Exa mination: Single AP view of the chest. COMPARISON: None. INDICATION: P reop exam for right leg surgery IMPRESSION: 1. Lines and Tubes: None 2. Lungs are grossly clear. No consolidation or effusion. Elevation of the right hemidiaphragm, which may be due to eventration. 3. Cardiomediasti nal silhouette is normal. Pulmonary vasculature is normal. 4. No acute bony abnormalities. Degenerative changes in the thoracic spine. Signed by: Dr. Roberto Garcia M.D. on 01/25/2020 10:36 PM Dictated By: ROBERTO GARCIA MD 35 Transcribed B y: KARMEN on 01/25/202235 COPY TO: SYED DORMAN MD LOWER LEG [id number] 20:38:00 [place] [address] Patient Name: VIJAY HARRIS MR #: [id number] : 1960 Age/Sex: 59/F Req #: [id number] Adm Physician: LAURY SMITH MD Ordered by: SYED DORMAN MD Report #: [id number] Location: MED/SURG Room/Bed: [facility] Procedure: [id number] DX/LOWER LEG RIGHT Exam Date: 01/25/20 Exam Time: 1948 REPORT STATUS: Signed ANKLE 3 + VIEWS RIGHT, LOWER LEG RIGHT - Multiple views HISTORY: s/p fall Y COMPARISON: None available. FINDINGS: Bones: There is a mild ly displaced spiral fracture of the distal femoral shaft. Osseous alignment is within normal limits. Joints: The joint spaces are well-maintained. Soft tissues: There is a small heel spur and Achilles tendon enthesophyte. IMPRESSION: Mildly displaced spiral fracture of the distal femoral shaft Signed by: Link Ngo MD on 01/25/2020 8:41 PM Dictated By: Magalys NGO MD 40 Transcribed By: KARMEN on 01/25/202040 COPY TO: MARITZA DORMAN MD ANKLE 3 + VIEWS [id number] 20:38:00 [place] [id number] Patient Name: VIJAY HARRIS MR #: [id number] : 1960 Age/Sex: 59/F Req #: [id number] Adm Physician: LAURY SMITH MD Ordered by: SYED DORMAN MD Report #: [id number] Location: MED/SURG Room/Bed: [facility] Procedure: [id number] DX/ANKLE 3 + VIEWS RIGHT Exam Date: 01/25/20 Exam Time: 1948 REPORT STATUS: Signed ANKLE 3 + VIEWS RIGHT, LOWER LEG RIGHT - Multiple views HISTORY: s/p fa ll Y COMPARISON: None available. FINDINGS: Bones: There is a mildly displaced spiral fracture of the distal femoral shaft. Osseous alignm ent is within normal limits. Joints: The joint spaces are well-maintained . Soft tissues: There is a small heel spur and Achilles tendon enthesophy te. IMPRESSION: Mildly displaced spiral fracture of the distal femoral s haft Signed by: Link Ngo MD on 01/25/2020 8:41 PM Dictated By: LINK NGO MD 40 COPY TO: SYED DORMAN MD
--- NOTE | 2020-04-22 10:37 | NUR ---
pt nonresponsive verbally. mild facial response to verbal/touch. MDs rounded. Dr Tapia spoke with pt regarding current condition and code status.
--- OUTSIDE RECORDS SUMMARY | 2020-04-22 10:40 | XMS REPORT | Continuity of Care Document ---
Author Author [facility] t Organization [facility] Address [address] [place] [address] Phone Unavailable Care Team Providers Care Tack Puller Machine Name Role Phone MD LAURY SMITH PCP Jamil SMITH Attphymontez Unavailable Jamil SMITH Admphymontez Unavailable Payers Payer Name Policy Type Policy Number Effective Date Expiration Date Montez Zaragoza Ppo [id number] 2019 00:00:00 [facility] Cdc Review [id number] [facility] Problems Condition Name Condition Details Condition Category Status Onset Date Resolution Date Last Treatment Date Treating Clinician Comments Source Chronic tachycardia Problem Active [facility] Fracture of right tibia Problem Active [facility] Allergies, Adverse Reactions, Alerts Allergy Name Allergy Type Status Severity Reaction(s) Onset Date Inacti ve Date Treating Clinician Comments Source Sulfa (Sulfonamide Antibiotics) Allergy to substance Active Moder ate 2020-01-25 00:00:00 [facility] Social History Social Habit Start Date Stop Date Quantity Comments Source Sex Assigned At 1960 00:00:00 1960 00:00:00 Female [facility] Medications Ordered Medication Name Filled Medication Name Start Date Stop Da te Current Medication? Ordering Clinician Indication Dosage Frequency Signature (SIG) Comments Components Source Atorvastatin Calcium Atorvastatin Calcium Yes 20 Bedtime [facility] Cholecalciferol (Vitamin D3) (Vitamin D3) 125 Mcg TAB. RAPDIS Cholecalciferol (Vitamin D3) (Vitamin D3) 125 Mcg TAB.RAPDIS Yes 125 Daily [facility] Cyanocobalamin (Vitamin B-12) (Vitamin B12) 2,500 Mcg TABLET Cyanocobalamin (Vitamin B-12) (Vitamin B12) 2,500 Mcg TABLET Yes 1000 Daily [facility] Doxepin Hcl Doxepin Hcl Yes 300 Bedtime [facility] Doxycycline Hyclate Doxycycline Hyclate Yes 100 Twice A Day [facility] Levothyroxine Sodium Levothyroxine Sodium Yes 50 Daily [facility] Lisinopril Lisinopril Yes 2.5 Daily [facility] Metoprolol Succinate Metoprolol Succinate Yes 25 Twice A Day [facility] Ondansetron Hcl (Zofran*) 4 Mg TABLET Ondansetron Hcl (Zofran*) 4 M g TABLET Yes 4 Twice A Day [facility] Sennosides/Docusate Sodium (Stool Softener Tablet) 1 E ach TABLET Sennosides/Docusate Sodium (Stool Softener Tablet) 1 Each TABLET Yes 1 Daily [facility] Vital Signs Vital Name Observation Time Observation Value Comments Source Body Temperature 2020-01-29 11:56:00 97.9 [degF] [facility] BMI (Body Mass Index) 2020-01-26 03:00:00 40.7 kg/m2 [facility] Weight 2020-01-25 19:24:00 260 [lb_av] [facility] Procedures Procedure Date / Time Performed Performing Clinician [facility] e X-ray of chest, single view 2020-01-25 00:00:00 [facility] Results Test Description Test Time Test Comments Results Result Comments Source CHEST SINGLE (PORTABLE) 2020-04-22 08:29:00 [place] [address] Patient Name: VIJAY HARRIS MR #: [id number] : 1960 Age/Sex: 59/F Req #: [id number] Adm Physician: LAURY SMITH MD Ordered by: ALFREDO PARRA MD Report #: [id number] Location: ICU Room/Bed: ICU 195-1 Procedure: [id number] DX/CHEST SINGLE (PORTABLE) Exam Date: 04/22/20 Exam [...] PARRA MD CHEST SINGLE (PORTABLE) 2020-04-21 23:04:00 [place] [address] Patient Name: VIJAY HARRIS MR #: [id number] : 1960 Age/Sex: 59/F Req #: [id number] Adm Physician: LAURY SMITH MD Ordered by: SYED DORMAN MD Report #: [id number] Location: ERHOLD Room/Bed: [place] [address] Procedure: DX/CHEST SINGLE (PORTABLE) Exam Date: 04/21/20 [...] DORMAN MD CHEST SINGLE (PORTABLE) 2020-04-21 19:11:00 [place] [address] Patient Name: VIJAY HARRIS MR #: [id number] : 1960 Age/Sex: 59/F Req #: [id number] Adm Physician: Ordered by: SYED DORMAN MD Report #: [id number] Location: ER Room/Bed: Procedure: [id number] DX/CHEST SINGLE (PORTABLE) Exam Date: 04/21/20 Exam [...] Test Item Bedside Glucose (test code = 74929-0) 147 70-120 Meter ID: [id number] [facility] HospitalBlood leukocytes automated count (number/volume)2020-01-29 04:52:00* Test Item Value Reference Range Interpretation Comments White Blood Count (test code = 6690-2) 4.48 4.8-10.8 [facility] erythrocytes automated count (number/volume)2020-01-29 04:52:00* Test Item Value Reference Range Interpretation Comments Red Blood Count (test code = 789-8) 3.34 3.6-5.1 [facility] HospitalBlood hemoglobin measurement (moles/volume)2020-01-29 04:52:00* Test Item Value Reference Range Interpretation Comments Hemoglobin (test code = 21091-0) 10.5 12.0-16.0 [facility] HospitalAutomated blood hematocrit (volume fraction)2020-01-29 04:52:00* Test Item Value Reference Range Interpretation Comments Hematocrit (test code = 4544-3) 31.4 34.2-44.1 [facility] HospitalAutomated erythrocyte mean corpuscular ltueoh0170-09-74 04:52:00* Test Item Value Reference Range Interpretation Comments Mean Corpuscular Volume (test code = 787-2) 94.0 81-99 [facility] HospitalAutomated erythrocyte mean corpuscular hemoglobin (mass per erythrocyte)2020-01-29 04:52:00* Test Item Value Reference Range Interpretation Comments Mean Corpuscular Hemoglobin (test code = 785-6) 31.4 28-32 [facility] HospitalAutomated erythrocyte mean corpuscular hemoglobin concentration measurement (mass/volume)2020-01-29 04:52:00* Test Item Value Reference Range Interpretation Comments Mean Corpuscular Hemoglobin Concent (test code = 786-4) 33.4 31-35 [facility] HospitalRDW ItjEd-Vjq8814-82-26 04:52:00* Test Item Value Reference Range Interpretation Comments Red Cell Distribution Width (test code = 17768-7) 14.6 11.7 -14.4 [facility] HospitalAutomated blood platelet count (count/volume)2020-01-29 04:52:00* Test Item Value Reference Range Interpretation Comments Platelet Count (test code = 777-3) 171 140-360 [facility] HospitalAutquorum healthed blood segmented neutrophil count as percentage of total plbkrdyssb7364-64-56 04:52:00* Test Item Value Reference Range Interpretation Comments Neutrophils (%) (Auto) (test code = 26489-0) 64.4 38.7-80.0 [facility] HospitalAutomated blood lymphocyte count as percentage ot total vsnfjzitfe2255-13-32 04:52:00* Test Item Value Reference Range Interpretation Comments Lymphocytes (%) (Auto) (test code = 736-9) 21.2 18.0-39.1 [facility] HospitalAutomated blood monocyte count as percentage of total llyadynahn6821-31-31 04:52:00* Test Item Value Reference Range Interpretation Comments Monocytes (%) (Auto) (test code = 5905-5) 9.2 4.4-11.3 [facility] HospitalAutomated blood eosinophil count as percentage of total samzjppkkg2513-05-95 04:52:00* Test Item Value Reference Range Interpretation Comments Eosinophils (%) (Auto) (test code = 713-8) 0.7 0.0-6.0 [facility] HospitalAutomated blood basophil count as percentage of total drabyirruy8737-14-32 04:52:00* Test Item Value Reference Range Interpretation Comments Basophils (%) (Auto) (test code = 706-2) 0.7 0.0-1.0 [facility] HospitalFluoroscopic procedure less than one hour chfpkzdz0524-61-61 04:52:00* Test Item Value Reference Range Interpretation Comments IM GRANULOCYTES % (test code = IM GRANULOCYTES %) 3.8 0.0- 1.0 [facility] HospitalAutomated blood neutrophil count 2020-01-29 04:52:00* Test Item Value Reference Range Interpretation Comments Neutrophils # (Auto) (test code = 751-8) 2.9 2.1-6.9 [facility] HospitalBlood lymphocytes count (number/volume) 2020-01-29 04:52:00* Test Item Value Reference Range Interpretation Comments Lymphocytes # (Auto) (test code = 93084-2) 1.0 1.0-3.2 [facility]Bl[facility] monocytes automated count (number/volume)2020-01-29 04:52:00* Test Item Value Reference Range Interpretation Comments Monocytes # (Auto) (test code = 742-7) 0.4 0.2-0.8 [facility] HospitalAutomated blood eosinophil count 2020-01-29 04:52:00* Test Item Value Reference Range Interpretation Comments Eosinophils # (Auto) (test code = 711-2) 0.0 0.0-0.4 [facility] HospitalAutomated blood basophil count (count/volume)2020-01-29 04:52:00* Test Item Value Reference Range Interpretation Comments Basophils # (Auto) (test code = 704-7) 0.0 0.0-0.1 [facility] HospitalFluoroscopic procedure less than one hour febpxwhv1821-06-30 04:52:00* Test Item Value Reference Range Interpretation Comments Absolute Immature Granulocyte (auto (axel t code = Absolute Immature Granulocyte (auto) 0.17 0-0.1 [facility] or plasma sodium measurement (moles/volume)2020-01-29 04:52:00* Test Item Value Reference Range Interpretation Comments Sodium Level (test code = 2951-2) 142 136-145 [facility] Centererum or plasma potassium measurement (moles/volume)2020-01-29 04:52:00* Test Item Value Reference Range Interpretation Comments Potassium Level (test code = 2823-3) 3.6 3.5-5.1 [facility]ererum or plasma chloride measurement (moles/volume)2020-01-29 04:52:00* Test Item Value Reference Range Interpretation Comments Chloride Level (test code = 2075-0) 111 98-107 [facility]ererum or plasma carbon dioxide, total measurement (moles/volume)2020-01-29 04:52:00* Test Item Value Reference Range Interpretation Comments Carbon Dioxide Level (test code = 2028-9) 25 22-29 [facility] Centererum or plasma anion ktp3134-81-73 04:52:00* Test Item Value Reference Range Interpretation Comments Anion Gap (test code = 20400-1) 9.6 8-16 [facility]ererum or plasma urea nitrogen measurement (mass/volume)2020-01-29 04:52:00* Test Item Value Reference Range Interpretation Comments Blood Urea Nitrogen (test code = 3094-0) 8 7-26 [facility] Centererum or plasma creatinine measurement (mass/volume)2020-01-29 04:52:00* Test Item Value Reference Range Interpretation Comments Creatinine (test code = 2160-0) 0.85 0.57-1.11 [facility] Centererum or plasma urea nitrogen/creatinine mass heosl9010-46-04 04:52:00* Test Item Value Reference Range Interpretation Comments BUN/Creatinine Ratio (test code = 3097-3) 9 6-25 [facility] HospitalEstimated glomerular filtration rate (GFR) ppdumvhqooxrx2652-83-89 04:52:00* Test Item Value Reference Range Interpretation Comments Estimat Glomerular Filtration Rate (test code = 010082073) > 60 >60 Ranges were taken from the National Kidney Disease Education Program and the [facility] Kidney Foundation literature.Reference ranges:60 or greater: Sthmwy01-00 ( for 3 consecutive months): Chronic kidney disease 15 or less: Kidney failureNorth Central Surgical Center HospitalGlucose xjdhpnfrpop1696-78-36 04:52:00* Test Item Value Reference Range Interpretation Comments Glucose Level (test code = SAK7049) 144 74-118 [facility]ererum or plasma calcium measurement (mass/volume)2020-01-29 04:52:00* Test Item Value Reference Range Interpretation Comments Calcium Level (test code = 26291-8) 8.6 8.4-10.2 [facility] HospitalFluoroscopic procedure less than one hour jwshywpe2433-48-43 05:10:00* Test Item Value Reference Range Interpretation Comments Hemoglobin A1c Percent (test code = Hemoglobin A1c Percent) 9.2 4.0-7.0 [facility] Centererum or plasma total bilirubin measurement (mass/volume)2020-01-28 05:10:00* Test Item Value Reference Range Interpretation Comments Total Bilirubin (test code = 1975-2) 0.3 0.2-1.2 [facility] HospitalFluoroscopic procedure less than one hour dcwxplpj1225-40-43 05:10:00* Test Item Value Reference Range Interpretation Comments Aspartate Amino Transf (AST/SGOT) (test code = Aspartate Amino Transf (AST/SGOT)) 20 5-34 [facility] Centererum or plasma alanine aminotransferase measurement (enzymatic activity/volume)2020-01-28 05:10:00* Test Item Value Reference Range Interpretation Comments Alanine Aminotransferase (ALT/SGPT) (test code = 1742-6) 22 0-55 [facility] Centererum or plasma protein measurement (mass/volume)2020-01-28 05:10:00* Test Item Value Reference Range Interpretation Comments Total Protein (test code = 2885-2) 5.4 6.5-8.1 [facility] Centererum or plasma albumin measurement (mass/volume)2020-01-28 05:10:00* Test Item Value Reference Range Interpretation Comments Albumin (test code = 1751-7) 2.8 3.5-5.0 [facility] HospitalPlasma globulin measurement (mass/volume) 2020-01-28 05:10:00* Test Item Value Reference Range Interpretation Comments Globulin (test code = 85879-9) 2.6 2.3-3.5 [facility] Centererum or plasma albumin/globulin mass kdgcs8213-60-89 05:10:00* Test Item Value Reference Range Interpretation Comments Albumin/Globulin Ratio (test code = 1759-0) 1.1 0.8-2.0 [facility] Centererum or plasma alkaline phosphatase measurement (enzymatic activity/volume)2020-01-28 05:10:00* Test Item Value Reference Range Interpretation Comments Alkaline Phosphatase (test code = 6768-6) 105 40-150 [facility] HospitalFluoroscopic procedure less than one hour bnkylzqo1119-10-20 14:40:00* Test Item Value Reference Range Interpretation Comments Lactic Acid Level (test code = Lactic Acid Level) 1.5 0.5- 2.0 [facility] HospitalUrine color vrxduwqewgfob7337-55-19 01:18:00* Test Item Value Reference Range Interpretation Comments Urine Color (test code = 5778-6) YELLOW YELLOW [facility] HospitalUrine sqlfdyr6921-50-54 01:18:00* Test Item Value Reference Range Interpretation Comments Urine Clarity (test code = 77810-4) CLOUDY CLEAR [facility] Centerpecific gravity of Urine by Test strip 2020-01-26 01:18:00* Test Item Value Reference Range Interpretation Comments Urine Specific [place] (test code = 5811-5) >=1.030 1.010-1.02 5 [facility] HospitalUrine pH measurement by automated test fbdwm3316-40-82 01:18:00* Test Item Value Reference Range Interpretation Comments Urine pH (test code = 31298-6) 5.5 5-7 [facility] HospitalUrine leukocyte esterase detection by vdsczwbl0663-71-36 01:18:00* Test Item Value Reference Range Interpretation Comments Urine Leukocyte Esterase (test code = 5799-2) TRACE NEGATIVE [facility] HospitalUrine nitrite ljwlazgxo3596-93-01 01:18:00* Test Item Value Reference Range Interpretation Comments Urine Nitrite (test code = 03179-3) NEGATIVE NEGATIVE [facility] HospitalUrine protein measurement by test strip (mass/volume)2020-01-26 01:18:00* Test Item Value Reference Range Interpretation Comments Urine Protein (test code = 5804-0) 1+ NEGATIVE [facility] HospitalUrine glucose gzidgtyia6499-83-94 01:18:00* Test Item Value Reference Range Interpretation Comments Urine Glucose (UA) (test code = 2349-9) 2+ NEGATIVE [facility] HospitalUrine ketones detection by automated test wmkzl1051-13-10 01:18:00* Test Item Value Reference Range Interpretation Comments Urine Ketones (test code = 52015-1) NEGATIVE NEGATIVE [facility] HospitalUrine urobilinogen measurement by test strip (mass/volume)2020-01-26 01:18:00* Test Item Value Reference Range Interpretation Comments Urine Urobilinogen (test code = 35697-8) 0.2 0.2-1 [facility] HospitalUrine total bilirubin measurement (mass/volume)2020-01-26 01:18:00* Test Item Value Reference Range Interpretation Comments Urine Bilirubin (test code = 1978-6) NEGATIVE NEGATIVE [facility] HospitalUrine erythrocytes plxyhblub1700-53-82 01:18:00* Test Item Value Reference Range Interpretation Comments Urine Blood (test code = 90161-0) TRACE NEGATIVE [facility] HospitalAutomated urine sediment leukocyte count by microscopy (number/high power field)2020-01-26 01:18:00* Test Item Value Reference Range Interpretation Comments Urine WBC (test code = 5821-4) >50 0-5 [facility] HospitalErythrocytes detection in urine sediment by light afoczklura5938-21-24 01:18:00* Test Item Value Reference Range Interpretation Comments Urine RBC (test code = 71684-9) 6-10 0-5 [facility] HospitalBacteria detection in urine sediment by light beqrxtiyef7906-68-58 01:18:00* Test Item Value Reference Range Interpretation Comments Urine Bacteria (test code = 09965-2) MODERATE NONE [facility] HospitalEpithelial cells detection in urine sediment by light rmcyantegm9695-54-28 01:18:00* Test Item Value Reference Range Interpretation Comments Urine Epithelial Cells (test code = 35910-8) FEW NONE [facility] HospitalTransitional cells detection in urine sediment by light mmjnlkrwsy6637-37-28 01:18:00* Test Item Value Reference Range Interpretation Comments Urine Transitional Epithelial Cells (test code = 8249-5) FEW NONE [facility] HospitalFluoroscopic procedure less than one hour vkqrnkvq0417-00-94 23:00:00* Test Item Value Reference Range Interpretation [...] complexity tests.Testing performed by [facility] [address] [place] [address] [id number] Director: Ronald Rajan M.D.CLIA # [id number] Central Surgical Center Hospital Prothrombin time (PT) in platelet poor plasma by coagulation ihllt7960-62-75 22:55:00* Test Item Value Reference Range Interpretation Comments Prothrombin Time (test code = 5902-2) 12.2 11.9-14.5 [facility] HospitalINR in Platelet poor plasma by Coagulation dxpgz0788-16-36 22:55:00* Test Item Value Reference Range Interpretation Comments Prothromb Time International Ratio (test code = 6301-6) 0.86 Oral Anticoagulant Therapy INR Values:1. Low Intensity Therapy 1.5 - 2.02 . Moderate Intensity Therapy 2.0 - 3.03. High Intensity Therapy(1) 2.5 - 3. 54. High Intensity Therapy(2) 3.0 - 4.05. Panic Value INR > 5.0 [facility] HospitalActivated partial thromboplastin time (aPTT) in platelet poor plasma by coagulation xweev2170-11-11 22:55:00* Test Item Value Reference Range Interpretation Comments Activated Partial Thromboplast Time (test code = 45631-3) 24.4 23.8-35.5 [facility] SINGLE (NOT PORTABLE)2020-01-25 22:35:00 [facility] [address] [place] [address] Patient Name: VIJAY HARRIS MR #: [id number] : 1960 Age/Sex: 59/F Req #: [id number] Adm Physician: Ordered by: SYED DORMAN MD Report #: [id number] Location: ER Room/Bed: Procedure: [id number] DX/CHEST SINGLE (NOT PORTABLE) Exam Date: 01/25/20 [...] COPY TO: SYED DORMAN MD LOWER LEG DVIBW2833-62-67 20:38:00 [place] [address] Patient Name: VIJAY HARRIS MR #: [id number] : 1960 Age/Sex: 59/F Req #: [id number] Adm Physician: LAURY SMITH MD Ordered by: SYED DORMAN MD Report #: [id number] Location: MED/SURG Room/Bed: [facility] Procedure: [id number] DX/LOWER LEG RIGHT Exam Date: 01/25/20 Exam [...] MARITZA DORMAN MD ANKLE 3 + VIEWS CRSMM8601-52-43 20:38:00 [place] [id number] Patient Name: VIJAY HARRIS MR #: [id number] : 1960 Age/Sex: 59/F Req #: [id number] Adm Physician: LAURY SMITH MD Ordered by: SYED DORMAN MD Report #: [id number] Location: MED/SURG Room/Bed: [facility] Procedure: [id number] DX/ANKLE 3 + VIEWS RIGHT Exam Date: [...]
[2020-04-22] MEDS ORDERED: SOD POLYSTYRENE SULFONATE SUSP 15 GM/60 ML BTL PO ONE (11:00)
[2020-04-22] MEDS: INSULIN REGULAR, HUMAN 100 UNIT/1 ML 3ML VIAL SQ SCH ×3 (12:16→21:00)
--- NOTE | 2020-04-22 12:55 | Progress Note ---
DATE: 04/22/2020 CHIEF COMPLAINT/HISTORY OF PRESENT ILLNESS: This is a 59-year-old white woman whose primary treating diagnosis is septic shock. Chest film done this morning revealed low lung volumes with bibasilar atelectasis, worse on the left. It is felt the patient may have left lower lobe pneumonia as a source of her sepsis. Also today, her left knee and leg is more red than usual. The patient has only worsened clinically overnight. White blood cell count today is 28,000 with 86% segmented neutrophils and 20% bands. The patient's hemoglobin is 11.1 g/dL. The patient's BUN and creatinine are 75 and 5.52 respectively. Potassium is 5.7, calcium 6.9. AST and ALT are 95 and 36 respectively. Creatine kinase level has increased from 3732 to 5273. The patient's lactic acid on admission was 1.7. Also on admission, the patient had urinalysis done, which revealed cloudy brown urine with a specific gravity of 1.030. It also revealed moderate bacteria, but no white cells were appreciated. Blood and urine cultures have been sent, but they still have not shown any growth. However, the urine culture is registering as re-incubation required, which could possibly be indicative of bacterial growth. COVID-19 test is still pending. REVIEW OF SYSTEMS: As per HPI. PHYSICAL EXAMINATION: GENERAL: She is not responsive to normal stimuli. She is currently on two vasopressors, namely norepinephrine and vasopressin. VITAL SIGNS: Blood pressure at this time is 85/67, heart rate 140, respiratory rate is 22, temperature 99.2, oxygen saturation 100% on 2 L oxygen. Her BMI is 40. INTEGUMENT: Skin is warm and dry. She has obvious pallor. No jaundice or diaphoresis appreciated. No skin breakdown or ulcers appreciated. HEENT: Anterior sclerae with moist mucous membranes. NECK: Supple. CARDIOVASCULAR: Tachycardic rate with regular rhythm. LUNGS: The patient has diminished breath sounds at bases. ABDOMEN: Soft. She has normal bowel sounds. EXTREMITIES: The left knee joint has an impressive scar from previous surgeries. The left knee joint and leg are erythematous and it is more swollen than the right lower leg. NEUROLOGIC: She is bed-bound, not responsive to any stimuli. DIAGNOSES: 1. Septic shock. 2. Left lower lobe pneumonia likely gram-negative monica. 3. Possible left knee joint infection. 4. Acute on chronic renal insufficiency secondary to acute tubular necrosis. 5. Rhabdomyolysis. 6. Extreme obesity, BMI 40. 7. Hyperkalemia. PLAN: 1. I spoke with the patient's , Mr. Feliberto Akbar and I conveyed to him the severity of his 's illness. 2. The stated that his is a full code status at this time. 3. I informed that the patient may be placed on a ventilator either today or tonight since she has become much less responsive and she is requiring higher doses of vasopressors. 4. We will order arterial blood gas to assess for acute hypercapnic respiratory failure. 5. Continue intravenous antibiotics. 6. We will follow urine and blood cultures. 7. We will diligently follow up on COVID-19 test. 8. Continue intravenous fluids in regard to the patient's rhabdomyolysis and acute renal insufficiency. 9. Follow creatine kinase level. 10. We will place nasogastric tube and order Kayexalate in regard to the patient's hyperkalemia. 11. Extremely poor prognosis. I spent 40 minutes care of this intensive care unit patient. MD EMANI Martinez/CARLOS ALBERTOL /[id number] MTDD
[2020-04-22] MEDS ORDERED: AMIODARONE HCL 900 MG in DEXTROSE 5% 500ML 500 ML IV PRN (14:38)
[2020-04-22] MEDS: NOREPINEPHRINE INJ 4MG/4ML 8 MG in DEXTROSE 5% 250ML 250 ML IV PRN (15:00)
[2020-04-22 15:26] LABS: ALBUMIN 3.1 g/dL (3.5-5.0); ALBUMIN/GLOBULIN RATIO 1.4 (0.8-2.0); ANION GAP 21.8 mmol/L (8-16); CALCIUM 7.1 mg/dL (8.4-10.2); CREATININE, SERUM 4.13 mg/dL (0.57-1.11); POTASSIUM 4.8 mmol/L (3.5-5.1)
--- NOTE | 2020-04-22 15:46 | Consultation ---
DATE OF CONSULTATION: Initial Nephrology Consultation REASON FOR CONSULTATION: Acute kidney injury. HISTORY OF PRESENT ILLNESS: Ms. Essie Akbar is a 59-year-old female who is admitted here to the ICU at [facility]. The patient has multiple medical problems and the patient was admitted basically because of feeling extremely weak and tired and almost being bed-bound. I am being asked to see her because her serum creatinine on admission was about 6, which is 5 today after couple liters of normal saline. Looking back at the previous records in January of this year, the patient had a normal creatinine of 0.8. In January, she had a hospitalization where her creatinine started off at 1.2, 1.3, but then it came down to 0.8, I will assume 0.8 is her baseline. The patient is being admitted. The patient also complained that she was having some fevers at home, some chills and feeling very weak. She was brought here to the emergency room. Laboratory was done and it discovered that she had a serum bicarbonate of 13, potassium of 6.8 and a serum creatinine of about 6.3. She has been given medical management of the hyperkalemia and also she is on a bicarb drip at this time. She has also been given few liters of IV fluids. The patient at the present time is arousable, but she is quite somnolent. PAST MEDICAL HISTORY: 1. The patient has a history of diabetes. 2. Extreme obesity. 3. Hypothyroidism. 4. History of DVT of the left leg. She has also had knee replacement surgery of the left knee and with that she has also had some episodes of osteomyelitis. PAST SURGICAL HISTORY: She has had a right tibia open reduction internal fixation done in January of this year. She has had left total knee replacement done two or 3 times. She has had a gastric bypass surgery, lap cholecystectomy. SOCIAL HISTORY: The patient lives with her . No smoking. No EtOH. No HIV risk factors. PHYSICAL EXAMINATION: VITAL SIGNS: Currently, blood pressure is 126/73, pulse is 140 and temperature 99. GENERAL: The patient is a large lady, obese HEENT: No increased JVD. CARDIOVASCULAR: Tachycardia. LUNGS: Decreased breath sounds at bases bilaterally. ABDOMEN: Obese. EXTREMITIES: The patient's leg is edematous. LABORATORY DATA: Laboratory results currently show sodium 134, potassium 5.7, chloride 106, bicarbonate 15, BUN and creatinine 75 and 5.5 respectively. The initial CK was 3732, CK now is 5273, calcium 6.9, albumin 2.6. White count is 28,000. Hemoglobin and hematocrit are 11 and 34, platelet count 218,000. Urinalysis shows trace protein, large blood, 0-5 red cells, no white cells, moderate bacteria. Urine culture is pending. Blood cultures are pending. IMPRESSION: 1. Acute kidney injury. 2. Nonoliguric acute kidney injury. 3. Decreased serum bicarb consistent with metabolic acidosis versus respiratory alkalosis with metabolic compensation. 4. Hyperkalemia. 5. Shock. 6. Hypovolemia. 7. Decreased effective renal blood flow. 8. Sepsis. PLAN: At the present time, the patient is in a state of sepsis/SIRS and she also is in a state of decreased effective renal blood flow that is most likely the etiology. Also, her CK is rising, even though it is not extremely elevated, it is consistent with mild rhabdomyolysis. This rhabdomyolysis in conjunction with decreased effective renal blood flow, SIRS, shock, hypovolemia, could be resulting in ATN causing her acute renal failure. A renal ultrasound has been ordered. We will make sure there is no obstructive nephropathy. She is on bicarb, fluid right now D5 water with 3 amps of sodium bicarb. We will continue this. I will go ahead and I will check a venous blood gas to confirm this is metabolic acidosis. Her CK is going up. I may put her on some IV fluid. Her urine output is good. I will give her some Lasix also to promote nonoliguria and also to help the potassium come down. I will probably give some Kayexalate. I am hopeful that her renal function will improve significantly by tomorrow. If it is not, then I have to order other serologies to rule out primary glomerulonephritis, although I think it is unlikely, but I will order these if necessary tomorrow if the renal function has not improved very much today. I am hopeful that with vigorous IV fluid that the renal function will improve significantly tomorrow. NSAIDs, calcium and IV contrast should be avoided. I will start her on normal saline and also give her a dose of Lasix. I will follow the patient with you. Thank you, Dr. Tapia, for allowing me to participate in the care of this patient with you. Ather MD JOEL Castillo/MARGAUX /[id number]
--- NOTE | 2020-04-22 16:33 | NUR ---
infectious disease consultation thank you for asked me see the patient patient's exam and chart review discussed with medical team. his is a 59-year-old white woman, who was brought to the emergency room via emergency medical services because of worsening lethargy and altered mentation for the last 2 days. According to the , the patient has been bed-bound for 2 days and has only drank a few sips of soda. In the emergency room, blood pressure was 70/36, heart rate 130 to 140 beats per minute. The patient states that for the last 2 weeks, she has not felt well and for the last week, she has had cough. The patient states she has had subjective fever and shaking chills for a couple of days. She also complains of frequent urination for the last couple of days. In the emergency room, the patient was found to have white blood cell count of 24,200 with 87% segmented neutrophils. Hemoglobin is 12.3 g/dL. Urinalysis revealed cloudy brown urine with specific gravity 1.030 with moderate bacteria, moderate sediment, but no epithelial cells were appreciated. The patient's BUN and creatinine in the emergency room were 82 and 6.23 respectively. Potassium 6.8, serum bicarbonate 13, sodium is 134, AST and ALT were 69 and 29 respectively, alkaline phosphatase 163. Creatine kinase level is elevated at 3732. Chest film performed in the emergency room revealed hazy opacity in the left lower lung with possible small left pleural effusion. The patient was admitted to the intensive care unit. patient is currently in the intensive care unit events noted chart reviewed consultation noted REVIEW OF SYSTEMS:at the present moment the patient does not provide too much information history was taken mainly from the medical record and reviewing the H&P and discussing with medical team GENERAL: The patient has lost 20 pounds in the last 2 weeks. She has had fever and chills for the past couple days. She has been very weak. In fact, she has been bed-bound for the last 2 days. HEENT: No headaches. No visual changes. CARDIOVASCULAR/RESPIRATORY: No chest pain. No shortness of breath, but she states she has had a cough for the past few days. GI: No nausea, vomiting, or diarrhea. The patient does have chronic constipation. : The patient states for the past week she has had frequent urination with slight burning. NEUROMUSCULAR: Denies any limb weakness or numbness, but she has been lying in bed for the past couple of days according the records ALLERGIES: SULFA ANTIBIOTICS. HOME MEDICATIONS: 1. Atorvastatin 20 mg at bedtime. 2. Vitamin D3 of 1000 units daily. 3. Vitamin B12 of 1000 mcg daily. 4. Doxepin 300 mg at bedtime. 5. Doxycycline 100 mg b.i.d. (for chronic left knee joint infection). 6. Levothyroxine 50 mcg daily. 7. Lisinopril 2.5 mg daily. 8. Metoprolol succinate 25 mg b.i.d. 9. Ondansetron 4 mg p.o. b.i.d. p.r.n. nausea and vomiting. 10. Senna with Colace one tablet daily. 11. Lantus insulin 10 units subcutaneous twice a day. PAST MEDICAL HISTORY: 1. Chronic left knee joint infection. 2. Extreme obesity, BMI 41. 3. Type 2 diabetes mellitus. 4. Chronic tachycardia. 5. Stage 2 chronic kidney disease. 6. Bilateral knee degenerative joint disease. 7. Peripheral neuropathy. 8. Hypertriglyceridemia. 9. History of left lower extremity deep venous thrombosis. 10. Hypothyroidism. PAST SURGICAL HISTORY: 1. Right tibia open reduction and internal fixation in January of 2020. 2. Left total knee replacement 3 times. 3. Left knee antibiotic spacer placement twice because of infection. 4. Gastric bypass. 5. Laparoscopic cholecystectomy. SOCIAL HISTORY: This woman is , lives with . 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 The patient has no history of tobacco or alcohol use, but she has been exposed to secondhand tobacco smoke from her for many years. FAMILY HISTORY: Father has diabetes mellitus and coronary artery disease. Mother of lung cancer. PHYSICAL EXAMINATION: GENERAL: She is somnolent, but arousable. The patient looks very weak and ill. She is oriented to self only. VITAL SIGNS: Height 5 feet 6 inches, weight is 240 pounds, BMI is 39 (the patient has lost 20 pounds in the last couple of weeks). Blood pressure in the emergency room was as low as 61/30, currently it is 110/90, but she is on intravenous pressors, namely norepinephrine; heart rate 140; respiratory rate 16; oxygen saturation 97% on 3 L oxygen; temperature 98.6. INTEGUMENT: Skin is warm and dry. The patient has obvious pallor. No jaundice or diaphoresis. HEENT: Anterior sclerae with dry mucous membranes. she is not pale and not icteric normocephalic NECK: Supple. no JVD CARDIOVASCULAR: Tachycardic. Regular rate and rhythm. LUNGS: The patient has diminished breath sounds in the bibasilar area. ABDOMEN: Soft. Normal bowel sounds. EXTREMITIES: No edema or deformity. The left knee joint does not look swollen or erythematous. NEUROLOGIC: She is globally weak, but no gross neurologic deficits appreciated. DIAGNOSES: 1. Septic shock.source is unclear concern about aspiration pneumonia concern about intra-abdominal process 2acute on chronic kidney injury 3. Acute renal insufficiency secondary to acute tubular necrosis and hypovolemia. 4. Rhabdomyolysis. 5. Urinary tract infection. recommend 10 blood cultures urine cultures put the patient on cefepime 1 g daily if the CAT scan of abdomen and pelvis recheck CBC to check and panel check amylase lipase further recommendation to follow
--- NOTE | 2020-04-22 16:54 | Diagnostic Imaging Report ---
EXAM: Renal Ultrasound INDICATION: Acute kidney injury COMPARISON: None TECHNIQUE: Transverse and longitudinal images of the kidneys and bladder were obtained. FINDINGS: Right Kidney: Length: 10.4 cm Appearance: Normal echogenicity. Collecting system: No hydronephrosis Stones: None Cyst/Mass: None Left Kidney: Length: 9.6 cm Appearance: Normal echogenicity. Collecting system: No hydronephrosis Stones: None Cyst/Mass: None Bladder: Watts catheter in the decompressed bladder. IMPRESSION: No hydronephrosis or renal calculi. Signed by: Hortensia Walsh MD on 04/22/2020 4:50 PM
--- NOTE | 2020-04-22 16:55 | Diagnostic Imaging Report ---
Exam: KUB - 2 views Indication: NG tube placement Comparison: Chest radiograph earlier the same day Findings: NG tube with tip and side-port in the stomach. Nonobstructive bowel gas pattern. No free air. No acute osseous injury. Impression: NG tube with tip and side-port in the stomach. Signed by: Hortensia Walsh MD on 04/22/2020 4:52 PM
[2020-04-22] MEDS ORDERED: VANCOMYCIN 1GM/NS 250 ML 250 ML IV ONE (17:00)
[2020-04-22 19:49] LABS: ABG HCO3 19 mmol/L (22-26); ABG PCO2 33 mmHg (35-45); ABG PH 7.38 (7.35-7.45); ABG PO2 114 mmHg (80-105); ABG TCO2 20
[2020-04-22] MEDS ORDERED: DIATRIZOATE MEGL/DIATRIZOA SOD 30 ML BTL PO ONE (20:55)
[2020-04-22] MEDS ORDERED: ATORVASTATIN 20 MG TAB PO SCH (21:00)
--- NOTE | 2020-04-22 21:33 | NUR ---
Clarified the CT order with Dr Tian, ok to do it with oral contrast
--- NOTE | 2020-04-22 23:28 | Diagnostic Imaging Report ---
EXAM: CT Abdomen and Pelvis WITHOUT contrast INDICATION: ^r/o infection COMPARISON: TECHNIQUE: Abdomen and pelvis were scanned utilizing a multidetector helical scanner from the lung base to the pubic symphysis without administration of IV contrast. Absence of intravenous contrast decreases sensitivity for detection of focal lesions and vascular pathology. Coronal and sagittal reformations were obtained. Routine protocol was performed. IV CONTRAST: None ORAL CONTRAST: Dilute Gastrografin COMPLICATIONS: None RADIATION DOSE: Total DLP: 945.51 mGy*cm Estimated effective dose: (DLP x 0.015 x size factor) mSv CTDIvol has been reviewed. It is below the limits set by the Radiation Protocol Committee (RPC). Dose modulation, iterative reconstruction, and/or weight based adjustment of the mA/kV was utilized to reduce the radiation dose to as low as reasonably achievable. FINDINGS: Limited evaluation due to non-contrast technique. LOWER THORAX: Multivessel coronary artery calcifications. Central venous catheter tip projects in the distal SVC. Minimal dependent atelectasis. HEPATOBILIARY: No focal hepatic lesions. No biliary ductal dilation. GALLBLADDER: There are cholecystectomy clips. No wall thickening. SPLEEN: No splenomegaly. PANCREAS: No focal masses or ductal dilatation. ADRENALS: No adrenal nodules KIDNEYS/URETERS: No hydronephrosis. No cystic or solid mass lesions. No stones. GI TRACT: No abnormal distention, wall thickening, or evidence of bowel obstruction. Appendix is not clearly identified. There is however no fat stranding or adenopathy in the right lower quadrant to suggest appendicitis. PELVIC ORGANS/BLADDER: Watts catheter within a nondistended bladder development of focus of intraluminal gas likely related to this instrumentation. LYMPH NODES: No lymphadenopathy. VESSELS: Atherosclerosis without aneurysmal dilatation of the aorta.. PERITONEUM / RETROPERITONEUM: No free air or fluid. BONES: There are degenerative changes in the spine. SOFT TISSUES: Partially imaged subcutaneous fat stranding and skin thickening of the left lateral thigh that likely extends below the field of view inferiorly and laterally. No focal collection. IMPRESSION: Exam limited by non-contrast technique. 1. Marked subcutaneous fat stranding and skin thickening is seen in the partially imaged left thigh. This process likely extends inferiorly and laterally beyond the [id number]. No focal fluid collection is seen within the imaged thigh soft tissues. 2. No acute intra-abdominopelvic process on this noncontrast exam. Signed by: Maciej Laboy MD on 04/22/2020 11:24 PM
[2020-04-23] VITALS (23 sets, daily range): BP systolic 90–123; BP diastolic 54–76
[2020-04-23] MEDS: VASOPRESSIN 60 UNIT in DEXTROSE 5% 50ML 57 ML IV SCH (01:00)
[2020-04-23 04:47] LABS: BASOPHILS % 0.3 % (0.0-1.0); EOSINOPHILS % 0.2 % (0.0-6.0); HEMATOCRIT 27.6 % (34.2-44.1); LYMPHOCYTES # (AUTO) 1.3 (1.0-3.2); LYMPHOCYTES % 11.3 % (18.0-39.1); MEAN CORPUSCULAR HEMOGLOBIN 28.9 pg (28-32); MEAN CORPUSCULAR HGB CONC 32.6 g/dL (31-35); MEAN CORPUSCULAR VOLUME 88.7 fL (81-99); MONOCYTES % 8.5 % (4.4-11.3); NEUTROPHILS % 78.8 % (38.7-80.0); PLATELET COUNT 123 x10e3/uL (140-360); RED BLOOD COUNT 3.11 x10e6/uL (3.6-5.1); RED CELL DISTRIBUTION WIDTH 14.6 % (11.7-14.4)
[2020-04-23 05:10] LABS: ALBUMIN 3.6 g/dL (3.5-5.0); ALBUMIN/GLOBULIN RATIO 2.1 (0.8-2.0); CALCIUM 7.4 mg/dL (8.4-10.2); CREATININE, SERUM 2.81 mg/dL (0.57-1.11)
[2020-04-23] MEDS: LEVOTHYROXINE SODIUM 50 MCG TAB PO SCH (06:30)
[2020-04-23] MEDS: NOREPINEPHRINE INJ 4MG/4ML 8 MG in DEXTROSE 5% 250ML 250 ML IV PRN ×2 (07:07→21:00)
--- NOTE | 2020-04-23 07:24 | Diagnostic Imaging Report ---
EXAMINATION: CHEST SINGLE (PORTABLE) INDICATION: ^LLL pneumonia ^[id number] ^0520 ^Y COMPARISON: CT abdomen/pelvis 04/22/2020, chest radiograph 04/22/2020 and 04/21/2020 FINDINGS: TUBES and LINES: Unchanged position of right-sided central venous catheter with tip overlying the right atrium. Interval placement of enteric tube with tip coiling in the expected region of the stomach. LUNGS: Low lung volumes with perihilar bronchovascular crowding. Hazy opacity in the left lung base. PLEURA: Questionable trace left pleural effusion. HEART AND MEDIASTINUM: The cardiomediastinal silhouette is unchanged. BONES AND SOFT TISSUES: No acute osseous lesion. Soft tissues are unremarkable. IMPRESSION: 1. Unchanged position of right-sided central venous catheter. Interval placement of enteric tube with tip in expected region of the stomach. 2. Low lung volumes with hazy left lung base opacity, likely represent subsegmental atelectasis. Signed by: Dr. Toni Matthews M.D. on 04/23/2020 7:20 AM
[2020-04-23] MEDS: INSULIN REGULAR, HUMAN 100 UNIT/1 ML 3ML VIAL SQ SCH ×4 (07:30→21:00)
[2020-04-23 07:40] LABS: BAND NEUTROPHILS % (MANUAL) 4 %
[2020-04-23] MEDS: METOPROLOL SUCCINATE 25 MG TAB XL PO SCH (07:40)
[2020-04-23 07:41] LABS: LYMPHOCYTES % (MANUAL) 11 % (19-48); MONOCYTES % (MANUAL) 8 % (3.4-9.0); NEUTROPHILS % (MANUAL) 77 % (40-74)
[2020-04-23 07:45] LABS: PLATELET ESTIMATE SLIGHTLY DECREASED; PLATELET MORPHOLOGY COMMENT NORMAL; RBC MORPHOLOGY COMMENT NORMAL
[2020-04-23] MEDS: SODIUM BICARBONATE 8.4% SYRING 150 ML in DEXTROSE 5% 1,000 ML IV SCH ×2 (09:05→12:35)
--- NOTE | 2020-04-23 09:07 | NUR ---
patient examination reviewed the patient with the intensive care unit patient seems to be more alert today her vitals stable afebrile HEENT normocephalic no protected neck supple chest crackles bilateral heart S1-S2 abdomen soft was present extremity edema patient sepsis on admission sources unclear continue antibiotic that order please refer to the notes and orders will follow
[2020-04-23] MEDS ORDERED: HEPARIN 25,000 UNIT 1,500 UNIT in DEXTROSE 5% 250ML 250 ML IV SCH (09:45)
[2020-04-23] MEDS ORDERED: HEPARIN SOD (PORCINE) 5,000 UNIT/ML VIAL IV NR (09:45)
[2020-04-23] MEDS ORDERED: ACETAMINOPHEN 325 MG/10 ML UDC NG PRN (09:45)
[2020-04-23] MEDS: LINEZOLID 600 MG/D5W 300ML 300 ML IV SCH ×2 (09:50→21:15)
--- NOTE | 2020-04-23 10:24 | Progress Note ---
DATE: Pulmonary Critical Care Progress Note SUBJECTIVE: The venous duplex of the left leg showed extensive deep vein thrombosis. The Levophed is decreased to 8 mcg. Vasopressin is weaned off. The patient has improved urine output and creatinine is decreased. The patient is more awake. She is still not swallowing on her own and has a nasogastric tube in place. PHYSICAL EXAMINATION: VITAL SIGNS: The blood pressure is 193/62, saturation is now 100% on 2 L, and the pulse is 130. There is a sinus tachycardia. HEENT: Shows no facial swelling or erythema. LYMPHATIC: Shows no submandibular, cervical, or supraclavicular adenopathy. CARDIAC: Reveals tachycardia with normal S1 and S2. LUNGS: Auscultation of lungs shows decreased breath sounds at the bases. There is no wheezing. ABDOMEN: Soft and nontender. There is no rebound or guarding. EXTREMITIES: Show large left DVT with swelling in the leg. LABORATORY DATA: White blood cell count is 11.3 and the hemoglobin is 9.0. The platelet count is 123. The BUN to creatinine ratio is 43 to 2.81 and the other electrolytes are within normal limits. The albumin is 3.6. RADIOGRAPHIC DATA: Chest x-ray shows possible atelectasis at the left lung base. CT scan of the abdomen and pelvis shows there is no acute intra-abdominal pathology. There is subcutaneous fat stranding and some skin thickening along the left thigh. IMPRESSION: 1. Acute renal failure. 2. Septic shock with leukocytosis and unclear source, present on admission. 3. Extensive left leg deep venous thrombosis. 4. Diabetes. 5. Extreme obesity. 6. Tachycardia. 7. Chronic left knee infection in the past. PLAN: 1. Continue to wean pressors. 2. Continue to monitor urine output and electrolytes. 3. Begin enteral feedings. 4. Wean off bicarbonate drip. 5. Transition off amiodarone. 6. Begin heparin drip for deep vein thrombosis. Greater than 35 minutes in direct critical care time. Herb Martinez MD [facility]/MODL /[id number]
[2020-04-23 12:15] LABS: INR 1.22
[2020-04-23 12:16] LABS: PARTIAL THROMBOPLASTIN TIME 31.7 seconds (23.8-35.5)
[2020-04-23] MEDS: HEPARIN 25,000 UNIT 1,500 UNIT in DEXTROSE 5% 250ML 250 ML IV SCH (13:00)
--- NOTE | 2020-04-23 13:23 | NUR ---
INFECTIOUS DISEASE PROGRESS NOTE DR. MIRANDA HARRINGTON CC: Fatigue and weakness REVIEW OF SYSTEMS: GENERAL: The patient has lost 20 pounds in the last 2 weeks. She has had fever and chills for the past couple days. She has been very weak. In fact, she has been bed-bound for the last 2 days. HEENT: No headaches. No visual changes. CARDIOVASCULAR/RESPIRATORY: No chest pain. No shortness of breath, but she states she has had a cough for the past few days. GI: No nausea, vomiting, or diarrhea. The patient does have chronic constipation. : The patient states for the past week she has had frequent urination with slight burning. NEUROMUSCULAR: Denies any limb weakness or numbness, but she has been lying in bed for the past couple of days according the records ALL 14 POINT ROS NEG UNLESS OTHERWISE NOTED ALLERGIES: SULFA ANTIBIOTICS. PAST MEDICAL HISTORY: 1. Chronic left knee joint infection. 2. Extreme obesity, BMI 41. 3. Type 2 diabetes mellitus. 4. Chronic tachycardia. 5. Stage 2 chronic kidney disease. 6. Bilateral knee degenerative joint disease. 7. Peripheral neuropathy. 8. Hypertriglyceridemia. 9. History of left lower extremity deep venous thrombosis. 10. Hypothyroidism. PHYSICAL EXAMINATION: GENERAL: awake alert VITAL SIGNS: per chart HEENT: Anterior sclerae with dry mucous membranes. she is not pale and not icteric normocephalic NECK: Supple. no JVD CARDIOVASCULAR: Tachycardic. Regular rate and rhythm. LUNGS: The patient has diminished breath sounds in the bibasilar area. ABDOMEN: Soft. Normal bowel sounds. EXTREMITIES: No edema or deformity. The left knee joint does not look swollen or erythematous. NEUROLOGIC: She is globally weak, but no gross neurologic deficits appreciated. INTEGUMENT: Skin is warm and dry. The patient has obvious pallor. No jaundice or diaphoresis. IMPRESSION: 1. Septic shock present on admission to ED 2 Acute on chronic kidney injury 3. Acute renal insufficiency secondary to acute tubular necrosis and hypovolemia. 4. Rhabdomyolysis. 5. Urinary tract infection. 6. Extensive DVT LLE 7. Morbid Obesity 8. T2DM 9. Chronic left knee infection PLAN: blood cx neg 24 hrs Yeast in the urine leukocytosis improving on current antibiotic regimen NELSON improving Will continue the same for now and reassess f/u labs in the AM Anila Hutson MSN, WAITER/[employer]RESS [employer], AGACNP-BC Miranda Harrington M.D
[2020-04-23] MEDS ORDERED: CALCIUM CARBONATE 500 MG CHEWABLE TABS PO PRN (14:15)
--- NOTE | 2020-04-23 14:20 | Progress Note ---
DATE: Internal Medicine Progress Note SUBJECTIVE: The patient is still on the ventilator. PHYSICAL EXAMINATION: HEART: Showed regular rhythm. Normal S1 and S2 sound. LUNGS: Clear bilaterally. ABDOMEN: Soft. EXTREMITIES: Show no edema. NEUROLOGIC: She is bedbound. No response to any stimuli. VITAL SIGNS: Blood pressure 99/64, temperature 97.9, heart rate 130 per minute, respiratory rate 18 per minute, and oxygen saturation 99%. LABORATORY STUDIES: On the CBC; white blood count 11.37, hemoglobin 9.0, hematocrit 27.6, and platelet count 123,000. On the BMP; sodium 142, potassium 4.0, chloride 98, CO2 28, BUN 43, creatinine 2.81, GFR is 17 only, blood sugar 239, calcium 7.4, and phosphorus 3.2. Total bilirubin 1.1, AST 104, ALT 35, and alkaline phosphatase 130. CPK is elevated at 6216. Total protein 5.3, albumin 3.6, and globulin 1.7. Vancomycin 9.6. Urinalysis showed some trace protein and some sediment and urinary bacteria. Serology came back with coronavirus negative. Chest x-ray, which show unchanged position of right-sided central venous catheter. Interval placement of enteric tube with the tip in expected region of the stoma. Lower lobe pneumonia with hazy left lung base opacity, likely represents subsegmental atelectasis. FINAL IMPRESSION: 1. Acute respiratory failure. 2. Septic shock. 3. pneumonia. 4. Xjxek-ya-gijvpud renal failure secondary to acute tubular necrosis. 5. Rhabdomyolysis. 6. Morbid obesity. PLAN OF TREATMENT: Continue ventilator support, wean as tolerated. Continue with amiodarone IV as needed for atrial fibrillation, cefepime 1 g IV once a day. She is taking D5W with sodium bicarbonate 150 mL an hour. She is taking heparin drip, Zyvox 600 mg IV twice a day, and Levophed as needed for hypotension. Continue with vasopressin as needed as needed for hypotension. Continue with Tylenol 650 mg by NG tube q.4 hours as needed for pain or fever, Lipitor 20 mg daily, levothyroxine 50 mcg daily, metoprolol 25 mg twice a day, and Zofran 4 mg IV q.4 hours as needed. Continue to monitor blood sugar before meals and q.6 hours. The patient has elevated LFTs. I would recommend to discontinue the Lipitor in the meantime. Continue monitoring CBC and BMP. The patient remains in critical condition. Case discussed with the nurse. Time spent 55 minutes. MD ROSA ISELA Rouse/MARGAUX /[id number]
[2020-04-23] MEDS: LACTATED RINGER'S 1,000 ML INJ SCH ×2 (15:13→21:40)
--- NOTE | 2020-04-23 16:17 | Progress Note ---
DATE: 04/23/2020 Renal Progress Note SUBJECTIVE: Events over the past 24 hours have been noted. The patient is awake. She does open eyes and respond to questions. PHYSICAL EXAMINATION: I'S AND O'S: Balance in the last 24 hours she has had 3.1 L and 6.7 L out. VITAL SIGNS: Blood pressure is 95/66, pulse is 128, and afebrile. GENERAL: The patient is a large lady. She is also obese. HEENT: No increased JVD. The patient has a central venous line in the neck area. CARDIOVASCULAR: Tachycardia, regular rhythm. LUNGS: Decreased breath sounds at the bases bilaterally. ABDOMEN: Decreased bowel sounds. EXTREMITIES: The patient has some trace edema of the legs. She does have boot on the right leg. LABORATORY RESULTS: Sodium 142, potassium 4, chloride 98, bicarbonate 28, BUN and creatinine of 43 and 2.8 respectively. Calcium is 7.4, phosphorus 3.2, albumin 3.6. Blood gas today shows pH 7.37, pCO2 35, bicarb 21.9. This was a venous blood gas. IMPRESSION: 1. Acute kidney injury. 2. Nonoliguric acute renal injury. 3. Hypovolemia. 4. Shock. 5. Sepsis. 6. Mild rhabdomyolysis. PLAN: At the present time, the patient is getting bicarb fluid her serum bicarb is 28. She actually could do well with just lactated Ringer at 100-150 mL an hour. I will go ahead and switch the IV fluid over to that. Her renal function is improved from yesterday. She is making good urine output. She is probably in the post ATN diuresis phase. The patient's calcium is low. I will go ahead and give her one amp of calcium chloride to supplement, alternately if she is able to take p.o. I may just prescribe some Tums tablets for her, continue. The patient has less than 10,000 CFU of yeast in the urine. Ather MD JOEL Castillo/MARGAUX /[id number]
[2020-04-23] MEDS: METOPROLOL TARTRATE 25 MG TAB PO SCH (16:59)
--- NOTE | 2020-04-23 20:13 | NUR ---
Patient calm in bed, no complaints raised. Received ptt results received increased as per protocol, next test at midnight
[2020-04-23] MEDS: CEFEPIME 1GM/NS 0.9% 50 ML 50 ML IV SCH (23:00)
[2020-04-24] VITALS (24 sets, daily range): BP systolic 92–114; BP diastolic 53–80
[2020-04-24] MEDS: VASOPRESSIN 60 UNIT in DEXTROSE 5% 50ML 57 ML IV SCH (01:00)
--- NOTE | 2020-04-24 01:38 | NUR ---
PTT results back, heparin stopped as per protocol, to be decreased by 200
[2020-04-24] MEDS: LACTATED RINGER'S 1,000 ML INJ SCH ×2 (05:00→11:17)
[2020-04-24 05:30] LABS: BASOPHILS % 0.3 % (0.0-1.0); EOSINOPHILS # (AUTO) 0.1 (0.0-0.4); EOSINOPHILS % 1.1 % (0.0-6.0); HEMATOCRIT 28.3 % (34.2-44.1); LYMPHOCYTES # (AUTO) 1.4 (1.0-3.2); LYMPHOCYTES % 13.7 % (18.0-39.1); MEAN CORPUSCULAR HEMOGLOBIN 29.2 pg (28-32); MEAN CORPUSCULAR HGB CONC 31.8 g/dL (31-35); MEAN CORPUSCULAR VOLUME 91.9 fL (81-99); MONOCYTES # (AUTO) 0.8 (0.2-0.8); MONOCYTES % 7.2 % (4.4-11.3); NEUTROPHILS % 76.5 % (38.7-80.0); PLATELET COUNT 119 x10e3/uL (140-360); RED BLOOD COUNT 3.08 x10e6/uL (3.6-5.1); RED CELL DISTRIBUTION WIDTH 14.3 % (11.7-14.4)
[2020-04-24 06:02] LABS: ALBUMIN 3.1 g/dL (3.5-5.0); ALBUMIN/GLOBULIN RATIO 1.8 (0.8-2.0); ANION GAP 14.8 mmol/L (8-16); CALCIUM 7.1 mg/dL (8.4-10.2); CREATININE, SERUM 1.73 mg/dL (0.57-1.11); POTASSIUM 3.8 mmol/L (3.5-5.1)
[2020-04-24] MEDS: LEVOTHYROXINE SODIUM 50 MCG TAB PO SCH (06:30)
[2020-04-24] MEDS: INSULIN REGULAR, HUMAN 100 UNIT/1 ML 3ML VIAL SQ SCH ×4 (08:38→21:34)
[2020-04-24] MEDS: LINEZOLID 600 MG/D5W 300ML 300 ML IV SCH ×2 (08:55→21:33)
[2020-04-24] MEDS: METOPROLOL TARTRATE 25 MG TAB PO SCH ×2 (08:55→16:25)
[2020-04-24 10:14] LABS: ANION GAP 15.9 mmol/L (8-16); CALCIUM 7.2 mg/dL (8.4-10.2); CREATININE, SERUM 1.7 mg/dL (0.57-1.11); POTASSIUM 3.9 mmol/L (3.5-5.1)
--- NOTE | 2020-04-24 14:14 | Progress Note ---
DATE: 04/24/2020 Renal Progress Note SUBJECTIVE: The patient looks better today. She is awake. She is alert. She is not in any distress. PHYSICAL EXAMINATION: VITAL SIGNS: Blood pressure 100/63, pulse 103, 97.7 temperature. Intake and output for the last 24 hours, intake has been 2240, output 2450. GENERAL: The patient is a large female. HEENT: No increased JVD. CARDIOVASCULAR: Tachycardia, regular rhythm. LUNGS: Decreased breath sounds bases bilaterally. ABDOMEN: Positive bowel sounds. EXTREMITIES: Edema seen of the legs. LABORATORY RESULTS: Sodium 139, potassium 3.9, chloride 96, bicarbonate 31, BUN and creatinine 30 and 1.7 respectively. Ionized calcium 1.0. Serum calcium is 7.2. CK is 4550. IMPRESSION AND PLAN: 1. Nonoliguric acute kidney injury. 2. Hypovolemia. 3. Shock. 4. Mild rhabdomyolysis. 5. Hypocalcemia. The patient's renal function continues to improve. I will go ahead and change her IV fluid from lactated Ringer's to normal saline given that her serum bicarb is somewhat elevated. Her CK is starting to come down through. She is on calcium carbonate pills 1000 mg b.i.d. We will continue this and actually because of her significantly low calcium I will increase it to three times a day. Ather MD JOEL Castillo/MARGAUX /[id number]
--- NOTE | 2020-04-24 15:03 | NUR ---
infectious disease progress note patient seen and examined regarding patient remains intensive care unit PHYSICAL EXAMINATION:She is to be more alert HEART: Showed regular rhythm. Normal S1 and S2 sound. LUNGS: Clear bilaterally. ABDOMEN: Soft. EXTREMITIES: Show no edema. NEUROLOGIC: She is bedbound. No response to any stimuli. VITAL SIGNS: Blood pressure 99/64, temperature 97.9, heart rate 130 per minute, respiratory rate 18 per minute, and oxygen saturation 99%. LABORATORY STUDIES: On the CBC; white blood count 11.37, hemoglobin 9.0, hematocrit 27.6, and platelet count 123,000. On the BMP; sodium 142, potassium 4.0, chloride 98, CO2 28, BUN 43, creatinine 2.81, GFR is 17 only, blood sugar 239, calcium 7.4, and phosphorus 3.2. Total bilirubin 1.1, AST 104, ALT 35, and alkaline phosphatase 130. CPK is elevated at 6216. Total protein 5.3, albumin 3.6, and globulin 1.7. Vancomycin 9.6. Urinalysis showed some trace protein and some sediment and urinary bacteria. Serology came back with coronavirus negative. Chest x-ray, which show unchanged position of right-sided central venous catheter. Interval placement of enteric tube with the tip in expected region of the stoma. Lower lobe pneumonia with hazy left lung base opacity, likely represents subsegmental atelectasis. sepsis on admission seems to be better Respiratory failure improving
[2020-04-24] MEDS: HEPARIN 25,000 UNIT 1,500 UNIT in DEXTROSE 5% 250ML 250 ML IV SCH (15:15)
--- NOTE | 2020-04-24 15:50 | Progress Note ---
DATE: Internal Medicine Progress Note. SUBJECTIVE: She still on the ventilator. PHYSICAL EXAMINATION: VITAL SIGNS: Blood pressure 102/65, temperature 97.7 degrees Fahrenheit, heart rate 101 per minute, respiratory rate 18 per minute, O2 saturation 100%. HEART: Showed regular rhythm. Normal S1, S2 sound. LUNGS: Clear bilaterally. ABDOMEN: Soft. LABORATORY DATA: On the blood work, we have CBC; white count is normal at 10.44, hemoglobin 9.0, hematocrit 28.3, platelet count 119,000. On the BMP; sodium 139, potassium 3.9, chloride 96, CO2 of 31, BUN 30, creatinine 1.70, glucose 218, calcium 7.2, total bilirubin 0.8, AST 107, ALT 38, alkaline phosphatase 135, creatine kinase 4550, total protein 4.8, albumin 3.1, and globulin 1.7. MICROBIOLOGY: Blood culture negative for 48 hours. Urine culture, yeast and Streptococcus species. FINAL IMPRESSION: 1. Acute respiratory failure. 2. Septic shock. 3. Gram-negative pneumonia. 4. Acute on chronic renal failure secondary to acute tubular necrosis. 5. Rhabdomyolysis. 6. Morbid obesity. PLAN OF TREATMENT: Continue ventilator support, wean as tolerated. Continue amiodarone as needed for atrial fibrillation, cefepime 1 g IV once a day, heparin drip. Continue lactated Ringer 150 mL an hour, Zyvox 600 mg IV twice a day, Levophed drip as needed for systolic blood pressure less than 90. Continue Tylenol 650 mg q.4 hours as needed, calcium carbonate 500 mg twice a day, levothyroxine 50 mcg daily, metoprolol 25 mg twice a day, Zofran 4 mg IV every 4 hours as needed for nausea and vomiting. Continue monitoring blood sugar q.6 hours. Labs have been reviewed. Consultation reports have been reviewed. Time spent around 55 minutes. MD ROSA ISELA Rouse/MODL /[id number]
--- NOTE | 2020-04-24 16:15 | Progress Note ---
DATE: 04/24/2020 SUBJECTIVE: The patient is more awake, she is urinating well. PHYSICAL EXAMINATION: VITAL SIGNS: The patient is afebrile, the blood pressure is 106/65, saturation is 100% on 2 L, and the pulse 107. HEENT: Shows no facial swelling or erythema. LYMPHATIC Shows no submandibular, cervical, or supraclavicular adenopathy. CARDIAC: Reveals regular rate and rhythm with normal S1, S2. LUNGS: Auscultation of lungs shows clear decreased breath sounds at the bases. There is no wheezing. ABDOMEN: Soft and nontender. There is no rebound or guarding. EXTREMITIES: Shows no leg edema or calf tenderness. There is no cyanosis or clubbing. LABORATORY DATA: BUN to creatinine ratio is 30 to 1.7. The other electrolytes within normal limits. The white blood cell count is 10.4 and hemoglobin is 9, platelet count is 119. IMPRESSION: 1. Acute renal failure. 2. Septic shock with leukocytosis of unclear source. 3. DVT of the left leg. 4. Diabetes. 5. Extreme obesity. PLAN: 1. Continue heparin. 2. Complete current antibiotics. 3. Wean off pressors. 4. Continue to monitor renal function and electrolytes. Herb Martinez MD [facility]/MODL /[id number]
[2020-04-24] MEDS: SODIUM CHLORIDE 0.9% 1000ML 1,000 ML IV SCH (16:25)
[2020-04-24] MEDS: CALCIUM CARBONATE 500 MG CHEWABLE TABS PO SCH (21:00)
[2020-04-24] MEDS: CEFEPIME 1GM/NS 0.9% 50 ML 50 ML IV SCH (23:08)
[2020-04-25] VITALS (25 sets, daily range): BP systolic 92–140; BP diastolic 58–78
--- NOTE | 2020-04-25 00:04 | NUR ---
Received ptt results, adjusted Heparin as per protocol
[2020-04-25] MEDS: VASOPRESSIN 60 UNIT in DEXTROSE 5% 50ML 57 ML IV SCH (01:00)
[2020-04-25] MEDS: SODIUM CHLORIDE 0.9% 1000ML 1,000 ML IV SCH ×4 (03:00→21:26)
[2020-04-25 05:34] LABS: BASOPHILS % 0.3 % (0.0-1.0); EOSINOPHILS # (AUTO) 0.1 (0.0-0.4); HEMATOCRIT 25.2 % (34.2-44.1); HEMOGLOBIN 7.8 g/dL (12.0-16.0); LYMPHOCYTES # (AUTO) 1.2 (1.0-3.2); MEAN CORPUSCULAR HEMOGLOBIN 28.7 pg (28-32); MEAN CORPUSCULAR VOLUME 92.6 fL (81-99); MONOCYTES # (AUTO) 0.5 (0.2-0.8); MONOCYTES % 7.1 % (4.4-11.3); NEUTROPHILS % 70.8 % (38.7-80.0); PLATELET COUNT 97 x10e3/uL (140-360); RED BLOOD COUNT 2.72 x10e6/uL (3.6-5.1)
[2020-04-25 05:52] LABS: ALBUMIN 2.6 g/dL (3.5-5.0); ALBUMIN/GLOBULIN RATIO 1.7 (0.8-2.0); ANION GAP 11.1 mmol/L (8-16); CREATININE, SERUM 1.29 mg/dL (0.57-1.11); POTASSIUM 3.1 mmol/L (3.5-5.1)
--- NOTE | 2020-04-25 06:00 | NUR ---
Heparin drip adjusted as per protocol
[2020-04-25] MEDS: LEVOTHYROXINE SODIUM 50 MCG TAB PO SCH (06:30)
[2020-04-25] MEDS: INSULIN REGULAR, HUMAN 100 UNIT/1 ML 3ML VIAL SQ SCH ×4 (08:49→21:00)
[2020-04-25] MEDS: CALCIUM CARBONATE 500 MG CHEWABLE TABS PO SCH ×3 (08:49→21:26)
[2020-04-25] MEDS: METOPROLOL TARTRATE 25 MG TAB PO SCH ×2 (08:49→21:26)
--- NOTE | 2020-04-25 08:50 | Diagnostic Imaging Report ---
EXAMINATION: CHEST SINGLE (PORTABLE) INDICATION: Pneumonia COMPARISON: Chest radiograph 04/23/2020 FINDINGS: LINES/TUBES:Right IJ central venous catheter terminates near the superior cavoatrial junction. Enteric tube terminates in the stomach. EKG leads overlie the chest. LUNGS:The lung volumes remain low. Persistent elevation of the right hemidiaphragm. Left basilar subsegmental atelectasis. No focal pneumonia or airspace edema. PLEURA:No pleural effusion or pneumothorax. MEDIASTINUM:The cardiomediastinal silhouette appears unchanged in size and shape. BONES/SOFT TISSUES:No acute osseous injury. ABDOMEN:No free air under the diaphragm. IMPRESSION: No significant interval change. Signed by: Hortensia Walsh MD on 04/25/2020 8:47 AM
[2020-04-25] MEDS ORDERED: POTASSIUM CHLORIDE 10MEQ EA PO ONE ×2 (09:30→11:00)
--- NOTE | 2020-04-25 09:43 | Progress Note ---
DATE: 04/25/2020 CHIEF COMPLAINT/HISTORY OF PRESENT ILLNESS: This is a 59-year-old white woman, whose primary treating diagnosis is sepsis of unknown origin, hgpkv-[id number]-[id number] renal insufficiency, and extensive left lower extremity deep venous thrombosis. The patient is much improved today. The patient's white blood cell count is 7000 with 70% segmented neutrophils. Platelet count 97,000. Hemoglobin 7.8 g/dL. The patient's BUN and creatinine today are 20 and 1.29 respectively. Creatine kinase level is 3510. The patient's potassium today is 3.1. The patient's COVID-19 test was negative. Chest film today reveals persistent elevation of right hemidiaphragm as well as left basilar subsegmental atelectasis. Her main complaint is mid epigastric and left upper quadrant abdominal pain. The patient is currently receiving tube feeds via nasogastric tube. REVIEW OF SYSTEMS: As per HPI. PHYSICAL EXAMINATION: GENERAL: She is awake. She is alert. She is oriented. She is pleasant and cooperative. The patient does not appear to be any obvious distress. VITAL SIGNS: Height 5 feet and 7 inches. Weight 264 pounds, BMI is 41. Blood pressure currently is 110/60, pulse is 120, it is regular, respiratory rate is 18, temperature 98.0, and oxygen saturation 99% on 2 L oxygen. INTEGUMENT: Skin is warm and dry. Slight pallor. No jaundice or diaphoresis. No skin breakdown or ulcers appreciated. HEENT: PERRLA. Moist mucous membranes. The patient has a nasogastric tube in place and she is currently receiving tube feeds. NECK: Supple. CARDIOVASCULAR: Tachycardic rate, regular rhythm. LUNGS: No rales. No rhonchi. No wheezes, but she has diminished breath sounds at the bases bilaterally. ABDOMEN: Obese, yet benign. She has normal bowel sounds. She does have tenderness on palpating the midepigastric area. EXTREMITIES: She has trace to 1+ edema in the left lower leg. NEUROLOGIC: Intact. DIAGNOSES: 1. Sepsis, likely secondary to left lower lobe pneumonia. 2. Ujinw-sb-nzlaipn renal insufficiency secondary to acute tubular necrosis, resolved. 3. Rhabdomyolysis, resolving. 4. Extensive deep venous thrombosis (left lower extremity). 5. Obesity, BMI 41. 6. Thrombocytopenia, likely secondary to intravenous heparin. 7. Hypokalemia. 8. Chronic left knee joint infection. PLAN: 1. Replete potassium level. 2. Intravenous fluids. 3. Follow creatine kinase level. 4. Follow electrolytes and renal function. 5. We will send stool for Clostridium difficile toxin detection since she is experiencing profuse watery diarrhea and she has been on long-term oral doxycycline treatment at home. 6. Continue intravenous cefepime and linezolid for the patient's sepsis. 7. Order a bedside swallow evaluation today and likely remove nasogastric tube if she passes this test. 8. Start intravenous pantoprazole for the patient's dyspepsia. 9. We will order Hemoccult stool since the patient is now anemic. 10. Continue nutritional support. I spent 40 minutes in the care of this intensive care unit patient. MD EMANI Martinez/MARGAUX /[id number]
[2020-04-25] MEDS: PANTOPRAZOLE 40 MG 10ML VIAL IV SCH (10:27)
[2020-04-25] MEDS: ENOXAPARIN SODIUM INJ 100 MG/ML SYR SC SCH ×2 (10:27→21:26)
[2020-04-25] MEDS: LINEZOLID 600 MG/D5W 300ML 300 ML IV SCH (10:28)
[2020-04-25] MEDS ORDERED: POTASSIUM CHLORIDE 20MEQ/15ML UDC NG ONE ×2 (10:45→12:30)
--- NOTE | 2020-04-25 10:55 | NUR ---
NFECTIOUS DISEASE PROGRESS NOTE DR. MIRANDA HARRINGTON CC: Fatigue and weakness REVIEW OF SYSTEMS: GENERAL: The patient has lost 20 pounds in the last 2 weeks. She has had fever and chills for the past couple days. She has been very weak. In fact, she has been bed-bound for the last 2 days. HEENT: No headaches. No visual changes. CARDIOVASCULAR/RESPIRATORY: No chest pain. No shortness of breath, but she states she has had a cough for the past few days. GI: No nausea, vomiting, or diarrhea. The patient does have chronic constipation. : The patient states for the past week she has had frequent urination with slight burning. NEUROMUSCULAR: Denies any limb weakness or numbness, but she has been lying in bed for the past couple of days according the records ALL 14 POINT ROS NEG UNLESS OTHERWISE NOTED ALLERGIES: SULFA ANTIBIOTICS. PAST MEDICAL HISTORY: 1. Chronic left knee joint infection. 2. Extreme obesity, BMI 41. 3. Type 2 diabetes mellitus. 4. Chronic tachycardia. 5. Stage 2 chronic kidney disease. 6. Bilateral knee degenerative joint disease. 7. Peripheral neuropathy. 8. Hypertriglyceridemia. 9. History of left lower extremity deep venous thrombosis. 10. Hypothyroidism. PHYSICAL EXAMINATION: GENERAL: awake alert VITAL SIGNS: per chart HEENT: Anterior sclerae with dry mucous membranes. she is not pale and not icteric normocephalic NECK: Supple. no JVD CARDIOVASCULAR: Regular rate and rhythm. LUNGS: The patient has diminished breath sounds in the bibasilar area. ABDOMEN: Soft. Normal bowel sounds. EXTREMITIES: No edema or deformity. The left knee joint does not look swollen or erythematous. INTEGUMENT: Skin is warm and dry. The patient has obvious pallor. No jaundice or diaphoresis. IMPRESSION: 1. Septic shock present on admission to ED 2 Acute on chronic kidney injury 3. Acute renal insufficiency secondary to acute tubular necrosis and hypovolemia. 4. Rhabdomyolysis. 5. Urinary tract infection. 6. Extensive DVT LLE 7. Morbid Obesity 8. T2DM 9. Chronic left knee infection PLAN: blood cx neg 72 hrs Yeast and strep in the urine leukocytosis resolved NELSON improving Can d/c with oral Keflex for 14 days when okay with others Hipprex 1gm po BID for life See me in clinic in 2-3 weeks Anila Hutson MSN, [employer], AGACNP-BC Miranda Harrington M.D
[2020-04-25] MEDS: CEFTRIAXONE SOD 1 GM/NS 50 ML 50 ML IV SCH (11:50)
--- NOTE | 2020-04-25 14:29 | Progress Note ---
DATE: 04/25/2020 Renal Progress Note SUBJECTIVE: Events over the past 24 hours have been noted. OBJECTIVE: GENERAL: The patient is awake. She is alert. The patient is obese. VITAL SIGNS: Blood pressure is 113/66, pulse 124, temperature 97.9. Intake and output for the past 24 hours, she has had 2190 in, 2150 out. The urine output component of her output is 1850 mL. HEENT: No increased JVD. CARDIOVASCULAR: Tachycardia. LUNGS: Decreased breath sounds at the basis bilaterally. ABDOMEN: Positive bowel sounds. EXTREMITIES: The patient has some edema of the legs. LABORATORY RESULTS: Sodium 140, potassium 3.1, chloride 99, bicarb 33, BUN and creatinine 20 and 1.3 respectively. Calcium is 7.0, albumin is 2.6. Creatine kinase is 3510. IMPRESSION/PLAN: 1. Nonoliguric acute kidney injury. 2. Hypokalemia. 3. Hypovolemia. 4. Shock. 5. Mild rhabdomyolysis. 6. Hypocalcemia. The patient's renal function continues to improve and she is probably at her baseline. She is on lactated Ringer's right now. I will change that to normal saline because her bicarb is still above 30. We will continue the normal saline. She is probably still intravascularly a little bit of volume depleted as an example evidenced by the tachycardia. She is on p.o. calcium replacement. I will give her one amp of calcium chloride also and we will also make sure her potassium is replaced. Ather MD JOEL Castillo/CARLOS ALBERTOL /[id number]
[2020-04-25 15:49] LABS: OCCULT BLOOD STOOL POSITIVE (NEGATIVE)
[2020-04-25] MEDS: CHOLESTYRAMINE 4 GM PACKET PO SCH (16:24)
--- NOTE | 2020-04-25 17:10 | Progress Note ---
DATE: SUBJECTIVE: The patient is now off pressors. She is more awake. She still has some tachycardia. PHYSICAL EXAMINATION: VITAL SIGNS: The blood pressure is 113/66 and pulse is 110-120. Saturation is 99% on 2 L. HEENT: Shows no facial swelling or erythema. CARDIAC: Reveals regular rate and rhythm with normal S1 and S2. LUNGS: Auscultation of lungs shows clear breath sounds bilaterally. ABDOMEN: Soft, nontender. There is no rebound or guarding. EXTREMITIES: Shows no leg edema or calf tenderness. There is no cyanosis or clubbing. SKIN: Shows no rashes. NEUROLOGIC: Shows no focal abnormalities. LABORATORY DATA: BUN to creatinine ratio is 20 to 1.29. Potassium is 3.1 and the other electrolytes are within normal limits. Hemoglobin 7.8 and the white blood cell count is 7. The platelet count is 97. IMPRESSION: 1. Acute renal failure. 2. Septic shock with leukocytosis. 3. Deep vein thrombosis of the left leg. 4. Diabetes. 5. Extreme obesity. PLAN: 1. Switch the patient to Lovenox. 2. Continue current antibiotics. 3. Continue to monitor renal function and electrolytes. 4. Transfer out of intensive care unit to general medical [place]. Herb Martinez MD [facility]/MODL /[id number]
[2020-04-26] VITALS (17 sets, daily range): BP systolic 101–144; BP diastolic 64–85
[2020-04-26] MEDS: VASOPRESSIN 60 UNIT in DEXTROSE 5% 50ML 57 ML IV SCH (00:16)
[2020-04-26] MEDS: SODIUM CHLORIDE 0.9% 1000ML 1,000 ML IV SCH ×3 (00:55→18:14)
[2020-04-26 04:59] LABS: BASOPHILS % 0.6 % (0.0-1.0); EOSINOPHILS # (AUTO) 0.1 (0.0-0.4); EOSINOPHILS % 1.5 % (0.0-6.0); HEMATOCRIT 27.1 % (34.2-44.1); HEMOGLOBIN 8.7 g/dL (12.0-16.0); LYMPHOCYTES # (AUTO) 1.1 (1.0-3.2); MEAN CORPUSCULAR HEMOGLOBIN 30.4 pg (28-32); MEAN CORPUSCULAR HGB CONC 32.1 g/dL (31-35); MEAN CORPUSCULAR VOLUME 94.8 fL (81-99); MONOCYTES # (AUTO) 0.6 (0.2-0.8); MONOCYTES % 7.7 % (4.4-11.3); NEUTROPHILS # (AUTO) 4.7 (2.1-6.9); NEUTROPHILS % 66.6 % (38.7-80.0); PLATELET COUNT 130 x10e3/uL (140-360); RED BLOOD COUNT 2.86 x10e6/uL (3.6-5.1); RED CELL DISTRIBUTION WIDTH 14.2 % (11.7-14.4)
[2020-04-26 05:17] LABS: ALBUMIN 2.9 g/dL (3.5-5.0); ALBUMIN/GLOBULIN RATIO 1.6 (0.8-2.0); ANION GAP 14.9 mmol/L (8-16); CALCIUM 7.1 mg/dL (8.4-10.2); CREATININE, SERUM 1.04 mg/dL (0.57-1.11); POTASSIUM 3.9 mmol/L (3.5-5.1)
[2020-04-26] MEDS: LEVOTHYROXINE SODIUM 50 MCG TAB PO SCH (05:48)
[2020-04-26 06:57] LABS: EOSINOPHILS % (MANUAL) 3 % (0-7); LYMPHOCYTES % (MANUAL) 15 % (19-48); MONOCYTES % (MANUAL) 10 % (3.4-9.0); MYELOCYTES % (MANUAL) 2 % (0-0); NEUTROPHILS % (MANUAL) 70 % (40-74); PLATELET ESTIMATE SLIGHTLY DECREASED; PLATELET MORPHOLOGY COMMENT NORMAL; RBC MORPHOLOGY COMMENT NORMAL
[2020-04-26] MEDS: INSULIN REGULAR, HUMAN 100 UNIT/1 ML 3ML VIAL SQ SCH ×4 (07:30→21:00)
[2020-04-26] MEDS: CHOLESTYRAMINE 4 GM PACKET PO SCH ×2 (07:30→18:14)
[2020-04-26 08:06] LABS: C DIFFICILE TOXIN A&B AMP PROB NEGATIVE (NEGATIVE)
[2020-04-26] MEDS: METOPROLOL TARTRATE 25 MG TAB PO SCH (08:45)
[2020-04-26] MEDS: PANTOPRAZOLE 40 MG 10ML VIAL IV SCH (08:45)
[2020-04-26] MEDS: METOPROLOL SUCCINATE 25 MG TAB XL PO SCH ×2 (08:46→21:00)
[2020-04-26] MEDS: CALCIUM CARBONATE 500 MG CHEWABLE TABS PO SCH ×3 (08:47→21:00)
[2020-04-26] MEDS: ENOXAPARIN SODIUM INJ 100 MG/ML SYR SC SCH ×2 (08:47→21:00)
--- NOTE | 2020-04-26 09:22 | Progress Note ---
DATE: 04/26/2020 CHIEF COMPLAINT/HISTORY OF PRESENT ILLNESS: A 59-year-old white woman whose primary treating diagnosis was sepsis likely secondary to left lower lobe pneumonia. She was also diagnosed with acute on chronic renal insufficiency on admission, but that has since resolved. Yesterday liquid stool was sent for Clostridium difficile toxin detection and the results were negative. Stool was Hemoccult positive though. Today's blood work revealed hemoglobin 8.7 g/dL. White blood cell count today is 7100 with 70% segmented neutrophils and 15% lymphocytes. The patient's BUN and creatinine today are 14 and 1.04 respectively with potassium 3.9. The patient's creatine kinase today is 2561. The patient's AST and ALT today are 80 and 33. Chest film performed yesterday revealed persistent left basilar haziness, which the radiologist felt could represent subsegmental atelectasis. The patient passed the bedside swallow test yesterday thus nasogastric tube was discontinued and she was started on a regular mechanical soft diet. REVIEW OF SYSTEMS: As per HPI. PHYSICAL EXAMINATION: GENERAL: She is awake, alert, and fully oriented. She is very pleasant and cooperative to exam. She does not appear to be in any obvious distress. VITAL SIGNS: Blood pressure 132/76 (the patient is off all pressors), pulse is 126, respiratory rate is 16, ox saturation 96% on 2 L oxygen. Height 5 feet 7 inches, weight is 265 pounds, BMI 41. INTEGUMENT: Skin is warm and dry. Slight pallor. No jaundice or diaphoresis. No skin breakdown or ulcerations appreciated. HEENT: Anterior sclerae with moist mucous membranes. NECK: Supple. CARDIOVASCULAR: Tachycardic rate with regular rhythm. LUNGS: No rales, no rhonchi. No wheezes. She does have diminished breath sounds in the bibasilar area. ABDOMEN: Obese yet benign. She has normal bowel sounds in all four quadrants. She has mild tenderness in the mid epigastric area, but it seems to be improved when compared to yesterday's exam. EXTREMITIES: She has trace 1+ edema in the left lower leg, which is actually improving. NEUROLOGIC: Intact. No deficits appreciated. DIAGNOSES: 1. Sepsis, likely secondary to left lower lobe pneumonia. 2. Acute on chronic renal insufficiency, likely secondary to hypovolemia, resolved. 3. Rhabdomyolysis, resolving. 4. Extensive deep venous thrombosis (left lower extremity). 5. Obesity, BMI 41. 6. Thrombocytopenia, improving. 7. Chronic left knee joint infection. PLAN: 1. Discontinue intravenous fluids. 2. Discontinue all pressors. 3. Follow creatine kinase level. 4. Follow electrolytes and renal function. 5. Would remove rectal tube. 6. Transfer the patient to medical surgical floor. 7. Mobilize physical therapy. 8. Continue intravenous pantoprazole for patient's dyspepsia. 9. Continue nutritional support. 10. Enoxaparin for patient's deep venous thrombosis. I spent 35 minutes in the care of this intensive care unit patient. MD EMANI Martinez/MARGAUX /[id number] MTDD
[2020-04-26] MEDS: FLUCONAZOLE 200 MG/100 ML 100 ML IV SCH (10:49)
--- NOTE | 2020-04-26 11:02 | Progress Note ---
DATE: SUBJECTIVE: The patient is currently afebrile. She is off Levophed and off vasopressin. She feels better. PHYSICAL EXAMINATION: VITAL SIGNS: Blood pressure is 144/74, saturation is 97% on 2 L and the pulse is 110-120. HEENT: No facial swelling or erythema. LYMPHATIC: No submandibular, cervical, or supraclavicular adenopathy. CARDIAC: Regular rate and rhythm with normal S1, S2. LUNGS: Auscultation of lungs reveals rhonchorous breath sounds bilaterally. There is no wheezing. ABDOMEN: Soft, nontender. There is no rebound or guarding. EXTREMITIES: No leg edema or calf tenderness. There is no cyanosis or clubbing. SKIN: No rashes. NEUROLOGICAL: No focal abnormalities. LABORATORY DATA: White blood cell count is 7.11 and hemoglobin is 8.7. Platelet count is 130. The BUN to creatinine ratio is 14 to 1.04. Other electrolytes are within normal limits. IMPRESSION: 1. Acute renal failure that is improving. 2. Septic shock with leukocytosis from unclear source. 3. Deep vein thrombosis of the left leg. 4. Diabetes. 5. Extreme obesity. PLAN: 1. Continue Lovenox. 2. Continue to monitor renal function and electrolytes. 3. Transfer out of intensive care unit. Herb Martinez MD [facility]/MODL /[id number]
[2020-04-26] MEDS: CEFTRIAXONE SOD 1 GM/NS 50 ML 50 ML IV SCH (11:14)
--- NOTE | 2020-04-26 12:18 | Progress Note ---
DATE: SUBJECTIVE: This is a 59-year-old, who comes here with sepsis. Her laboratory data reviewed. Her chart reviewed. PHYSICAL EXAMINATION: GENERAL: She is currently alert and oriented. VITAL SIGNS: Stable, currently afebrile. HEENT: She is not icteric. NECK: Supple. CHEST: Crackles bilateral. HEART: S1 and S2. ABDOMEN: Soft and obese. EXTREMITIES: No edema. LABORATORY DATA: Her urine culture is showing Strep viridans and yeast. Her white count is 7.11 and hemoglobin 8.7. Sodium 142, potassium 3.9 with creatinine 1.04. The patient, who is currently on Rocephin. We will add Diflucan. IMPRESSION: Sepsis, urinary tract infection, aspiration pneumonia, and deep venous thrombosis. We will follow. MD CHELA Elam/MARGAUX /[id number]
--- NOTE | 2020-04-26 15:29 | Progress Note ---
DATE: Renal Progress Note SUBJECTIVE: Events over the past 24 hours have been noted. The patient is doing well. PHYSICAL EXAMINATION: VITAL SIGNS: Blood pressure 125/74, respiration 15, pulse is 123. GENERAL: The patient is in no acute distress. HEENT: No increased JVD. CARDIOVASCULAR: Tachycardic, regular rhythm. LUNGS: Decreased breath sounds at the bases bilaterally. ABDOMEN: Positive bowel sounds. EXTREMITIES: Some edema of the legs. LABORATORY RESULTS: U142, potassium 3.9, chloride 105, bicarbonate 26, BUN and creatinine 14 and 1.0 respectively. Calcium is 7.1, total bilirubin is 0.4. Creatine kinase is 2561. IMPRESSION AND PLAN: 1. Nonoliguric acute kidney injury. 2. Hypocalcemia. 3. Hypovolemia. 4. Mild rhabdomyolysis. The patient's renal function continues to improve and looks like the IV fluids have been stopped. Right now, I will go ahead and reinstate the IV fluids at D5 normal saline at probably 75 mL an hour. The patient is still hypocalcemic, but she is getting Tums three times a day. Ather MD JOEL Castillo/MARGAUX /[id number]
--- NOTE | 2020-04-26 16:35 | Progress Note ---
DATE: 04/26/2020 ADDENDUM: I will not start any IV fluids on the patient. I will instead go ahead and start her on some Lasix 20 mg IV once a day. Ather MD JOEL Castillo/MARGAUX /[id number]
--- NOTE | 2020-04-26 16:49 | NUR ---
spoke with Dr. Tapia who ordered to restart fluids, normal saline at 150 ml/hr.
[2020-04-26] MEDS: FUROSEMIDE INJ 10 MG/ML 2 ML VIAL IV SCH (18:14)
--- NOTE | 2020-04-26 19:15 | NUR ---
Bedside rounds completed with morning nurse. Pt alert to name, sleepy, lying in bed HOB 45 degrees. No s/s of pain at this time. Call light within reach. Bed low and locked.
[2020-04-27] VITALS (8 sets, daily range): BP systolic 135–148; BP diastolic 74–91
[2020-04-27 05:34] LABS: ALBUMIN 2.8 g/dL (3.5-5.0); ALBUMIN/GLOBULIN RATIO 1.3 (0.8-2.0); CALCIUM 7.6 mg/dL (8.4-10.2); CREATININE, SERUM 0.96 mg/dL (0.57-1.11)
[2020-04-27 05:51] LABS: BASOPHILS # (AUTO) 0.1 (0.0-0.1); BASOPHILS % 0.8 % (0.0-1.0); EOSINOPHILS # (AUTO) 0.1 (0.0-0.4); EOSINOPHILS % 1.1 % (0.0-6.0); HEMATOCRIT 27.3 % (34.2-44.1); HEMOGLOBIN 8.7 g/dL (12.0-16.0); LYMPHOCYTES % 13.8 % (18.0-39.1); MEAN CORPUSCULAR HEMOGLOBIN 30.1 pg (28-32); MEAN CORPUSCULAR HGB CONC 31.9 g/dL (31-35); MEAN CORPUSCULAR VOLUME 94.5 fL (81-99); MONOCYTES # (AUTO) 0.6 (0.2-0.8); MONOCYTES % 8.2 % (4.4-11.3); NEUTROPHILS # (AUTO) 4.6 (2.1-6.9); NEUTROPHILS % 61.1 % (38.7-80.0); PLATELET COUNT 128 x10e3/uL (140-360); RED BLOOD COUNT 2.89 x10e6/uL (3.6-5.1); RED CELL DISTRIBUTION WIDTH 14.4 % (11.7-14.4)
[2020-04-27] MEDS: SODIUM CHLORIDE 0.9% 1000ML 1,000 ML IV SCH ×3 (06:20→22:50)
[2020-04-27] MEDS: LEVOTHYROXINE SODIUM 50 MCG TAB PO SCH (06:30)
[2020-04-27] MEDS: CHOLESTYRAMINE 4 GM PACKET PO SCH ×2 (07:30→16:27)
[2020-04-27] MEDS: INSULIN REGULAR, HUMAN 100 UNIT/1 ML 3ML VIAL SQ SCH ×4 (07:30→21:00)
[2020-04-27] MEDS: FUROSEMIDE INJ 10 MG/ML 2 ML VIAL IV SCH ×2 (08:36→17:31)
[2020-04-27] MEDS: PANTOPRAZOLE SOD 40 MG TABEC PO SCH (08:36)
[2020-04-27] MEDS: METOPROLOL SUCCINATE 25 MG TAB XL PO SCH ×2 (08:37→21:12)
[2020-04-27] MEDS: CALCIUM CARBONATE 500 MG CHEWABLE TABS PO SCH ×3 (08:37→21:12)
--- NOTE | 2020-04-27 09:13 | Progress Note ---
DATE: 04/27/2020 CHIEF COMPLAINT/HISTORY OF PRESENT ILLNESS: This is a 59-year-old white woman whose primary treating diagnosis was sepsis secondary to left lower lobe pneumonia as well as acute on chronic renal insufficiency. The patient's acute renal insufficiency has resolved completely. The patient is doing much better. She was also diagnosed rhabdomyolysis on admission. Today's creatine kinase level is 1863. The patient's BUN and creatinine today are 12 and 0.96 respectively. The patient's AST and ALT were 72 and 32 respectively. The patient's potassium today is 4.0. The patient's magnesium today is 1.2. The patient's white blood cell count is 7400 with 61% segmented neutrophils. The patient's hemoglobin is 8.7 g/dL. REVIEW OF SYSTEMS: As per HPI. PHYSICAL EXAMINATION: GENERAL: She is awake. She is alert. She has a flat affect and looks depressed, but she is pleasant and cooperative on exam. VITAL SIGNS: Height 5 feet 7 inches, weight is 264 pounds, BMI is 41, blood pressure is 144/78, pulse is 130, respiratory rate 16, temperature 98.1, oxygen saturation 98% on room air. INTEGUMENT: Skin is warm and dry. Slight pallor. No jaundice or diaphoresis. No skin breakdown or ulcerations appreciated. HEENT: Anterior sclerae with moist mucous membranes. NECK: Supple. CARDIOVASCULAR: Tachycardic rate with regular rhythm. LUNGS: No rales, rhonchi or wheezes. The patient has diminished breath sounds at bases. ABDOMEN: Obese, yet benign. EXTREMITIES: The patient still has trace edema in the left lower extremity, but it seems to be improving. The erythema in the left lower leg is definitely improving. NEUROLOGIC: Intact. DIAGNOSES: 1. Sepsis secondary to left lower lobe pneumonia, resolved. 2. Urinary tract infection. 3. Acute on chronic renal insufficiency, resolved. 4. Rhabdomyolysis, resolving. 5. Extreme obesity, BMI of 41. 6. Extensive deep venous thrombosis (left lower extremity). PLAN: 1. Follow renal function and electrolytes. 2. Replete magnesium level. 3. Mobilize physical therapy. 4. Consult Orthopedic surgery. 5. Discontinue enoxaparin. 6. Start apixaban in the form of Eliquis 10 mg twice a day for 10 days and then 5 mg twice a day thereafter for a total of 6 months. 7. Discharge planning for either tomorrow, , April 28 or Wednesday, April 29, 2020. I spent 40 minutes in the care of the patient. MD EMANI Martinez/MARGAUX /[id number] MTDEli
[2020-04-27] MEDS: APIXABAN 5 MG TABLET PO SCH ×2 (09:35→17:31)
[2020-04-27] MEDS ORDERED: MAGNESIUM SULFATE 2GM/50ML 100 ML IV ONE (10:00)
--- NOTE | 2020-04-27 10:30 | NUR ---
ramos cath removed.
[2020-04-27] MEDS: FLUCONAZOLE 200 MG/100 ML 100 ML IV SCH (10:46)
[2020-04-27] MEDS: CEFTRIAXONE SOD 1 GM/NS 50 ML 50 ML IV SCH (12:11)
--- NOTE | 2020-04-27 12:59 | Consultation ---
DATE OF CONSULTATION: 04/27/2020 REASON FOR CONSULTATION: Status post ORIF right tibia with our service. HISTORY OF PRESENT ILLNESS: This patient is a 59-year-old female, who is well known to us. She presented to my office for routine followup last week. She was noted to be obtunded. She was difficult to arouse with painful stimuli. She was directed by her to take her to the emergency room for evaluation. She was ultimately admitted for her worsening altered mental status. She was sent to the intensive care unit with concerns for sepsis and acute renal failure, pneumonia and urinary tract infection. She is currently stable. She was in a regular room. She is able to answer questions appropriately. She states that her pain is minimal in the right leg. She states she wishes to go home. PHYSICAL EXAMINATION: GENERAL: She is awake, alert, and oriented appropriately. She is in no apparent distress. She is lying in bed and eating breakfast. She has a boot. EXTREMITIES: She has a tib-fib orthosis on the right lower extremity. There is minimal swelling in the lower leg and ankle. Her previous surgical incision is well healed. She demonstrates near full range of motion of the ankle. She has grossly normal stability. Her left leg is moderately swollen. She has pain with calf compression. Shanice sign is positive. Distal neurovascular exam is grossly normal. IMAGING DATA: The patient had a venous Doppler ultrasound of her left lower extremity, which showed massive DVT. ASSESSMENT AND PLAN: This is a 59-year-old female, who was admitted for multiple medical issues including sepsis, acute renal failure, pneumonia, and urinary tract infection. We were consulted because she is roughly 3 months status post open reduction and internal fixation of her right tibia. I spoke with the attending physician. She can be weightbearing as tolerated and her tib-fib orthosis. She is going to be treated with Eliquis twice a day for her left lower extremity deep venous thrombosis. She can be mobilized with physical therapy, as I stated weightbearing as tolerated with her boot and a walker. She is currently being prepared for discharge home. I instructed her to follow up in roughly one month for repeat x-rays of the right lower extremity. She is instructed to contact my office if she has any questions or concerns. No further inpatient orthopedic intervention is anticipated at this time. Thank you for the consultation. Dictated by Myles Santos PA-C MD NICOLE Carrero/MARGAUX /[id number]
--- NOTE | 2020-04-27 13:48 | NUR ---
infectious disease progress note Patient seen and examined chart reviewed Patient is doing better there is no new complaints Her lab data reviewed Today's creatine kinase level is 1863. The patient's BUN and creatinine today are 12 and 0.96 respectively. The patient's AST and ALT were 72 and 32 respectively. The patient's potassium today is 4.0. The patient's magnesium today is 1.2. The patient's white blood cell count is 7400 with 61% segmented neutrophils. The patient's hemoglobin is 8.7 g/dL. REVIEW OF SYSTEMS:she is feeling better she is still weak As per HPI. PHYSICAL EXAMINATION: GENERAL: She is awake. She is alert. She has a flat affect and looks depressed, but she is pleasant and cooperative on exam. VITAL SIGNS: Height 5 feet 7 inches, weight is 264 pounds, BMI is 41, blood pressure is 144/78, pulse is 130, respiratory rate 16, temperature 98.1, oxygen saturation 98% on room air. INTEGUMENT: Skin is warm and dry. Slight pallor. No jaundice or diaphoresis. No skin breakdown or ulcerations appreciated. HEENT: Anterior sclerae with moist mucous membranes. NECK: Supple. CARDIOVASCULAR: Tachycardic rate with regular rhythm. LUNGS: No rales, rhonchi or wheezes. The patient has diminished breath sounds at bases. ABDOMEN: Obese, yet benign. EXTREMITIES: The patient still has trace edema in the left lower extremity, but it seems to be improving. The erythema in the left lower leg is definitely improving. NEUROLOGIC: Intact. DIAGNOSES: 1. Sepsis secondary to left lower lobe pneumonia, resolved 2. Urinary tract infection. 3. Acute on chronic renal insufficiency, resolved. 4. Rhabdomyolysis, resolving. 5. Extreme obesity, BMI of 41. 6. Extensive deep venous thrombosis (left lower extremity). can change to oral keflex
--- NOTE | 2020-04-27 15:25 | NUR ---
Nutrition Screen Note RD Recommendation for Physician: -Recommend ADA diet -If PO intake is <50% of meals, offer a Glucerna nutrition supplement Plan of Care: RD following, monitoring for tolerance and adequacy Nutrition reason for involvement: Length of stay Primary Diagnose(s): Acute renal failure, hyperkalemia, hypotension, leukocytosis, rhabdomyolysis, and sepsis PMH: Chronic left knee joint infection, Extreme obesity, BMI 41, Type 2 diabetes mellitus, Chronic tachycardia, Stage 2 chronic kidney disease, Bilateral knee degenerative joint disease, Peripheral neuropathy, Hypertriglyceridemia, History of left lower extremity deep venous thrombosis, Hypothyroidism. Ht:67 in Wt:264 lb BMI:41.3 kg/m2 IBW: [address] Assessment: (04/27/20) Chart reviewed. Labs and meds reviewed. Pt is a 59 year old female admitted with acute renal failure, hyperkalemia, hypotension, leukocytosis, rhabdomyolysis, and sepsis. Upon admission, it was noted that pt had decreased responsiveness and required enteral nutrition for 2 days. Pt is now on a regular diet. Pt reports she is consuming about 50% of her meals. Offered pt a nutrition supplement for added nutrition, but she declined. Pt also mentioned she usually weighs 260 lbs. Per chart, pt has weights ranging from 240-268 lbs in chart. Will continue to monitor Current Diet: regular diet Malnutrition Evaluation (04/27/20) The patient does not meet criteria for a specified degree of malnutrition at this time. Will re-evaluate at follow-up as appropriate. Diet Education Needs Assessment: RD is available for diet education as needed Nutrition Care Level: moderate Signed: Temitope Morales, RD, LD
--- NOTE | 2020-04-27 16:30 | NUR ---
24 hour urine collection started at 1630.
--- NOTE | 2020-04-27 16:44 | Progress Note ---
DATE: 04/27/2020 Renal Progress Note SUBJECTIVE: Events over the past 24 hours have been noted. The patient is awake and alert. She expresses no discomfort. Intake and output; for the past 24 hours she has 740 in and 1325 out and all of the 1325 has been urine output. PHYSICAL EXAMINATION: VITAL SIGNS: Blood pressure 151/91, last pulse was about 136. She is afebrile. GENERAL: The patient is in no acute distress. The patient is obese large lady. HEENT: No increased JVD. The patient has a central line in the neck area. CARDIOVASCULAR: Regular rate and rhythm. LUNGS: Decreased breath sounds. ABDOMEN: Positive bowel sounds. EXTREMITIES: The patient has edema all over arms and legs. LABORATORY RESULTS: Urinalysis shows trace proteinuria. Sodium 142, potassium 4, chloride 109, bicarbonate 19, BUN and creatinine 12 and 0.9 respectively. Magnesium is 1.2. ASSESSMENT: 1. Nonoliguric acute kidney injury-resolved. 2. Hypomagnesemia. 3. Edema. 4. Proteinuria. 5. Mild rhabdomyolysis. PLAN: The patient's renal function has essentially returned to normal and her serum creatinine is 0.9. She still remains edematous, however, I started her on Lasix 20 mg IV daily and she is diuresing okay with this, but she still has significant edema. I think I will increase the Lasix to twice a day as long as her BUN and creatinine do not go up again, I think she will be fine with that dose. We will replace her magnesium if it has not already been replaced. Also, I will have a 24-hour urine collection check just to quantify the amount of protein that she had. The urinalysis shows trace protein, but she has significant edema. I will do formal 24-hour urine collection. Ather MD JOEL Castro/MARGAUX /[id number]
--- NOTE | 2020-04-27 19:00 | NUR ---
Completed rounds with morning nurse. Pt alert and oriented to name, lying in bed HOB 60 degrees. Denies pain at this time. Call light within reach. Bed low and locked.
[2020-04-28] VITALS: BP 101/66
[2020-04-28 04:00] VITALS: BP 130/84
[2020-04-28 05:13] LABS: BASOPHILS # (AUTO) 0.1 (0.0-0.1); EOSINOPHILS # (AUTO) 0.2 (0.0-0.4); EOSINOPHILS % 2.3 % (0.0-6.0); HEMATOCRIT 26.3 % (34.2-44.1); HEMOGLOBIN 8.4 g/dL (12.0-16.0); LYMPHOCYTES % 14.7 % (18.0-39.1); MEAN CORPUSCULAR HEMOGLOBIN 30.1 pg (28-32); MEAN CORPUSCULAR HGB CONC 31.9 g/dL (31-35); MEAN CORPUSCULAR VOLUME 94.3 fL (81-99); MONOCYTES # (AUTO) 0.7 (0.2-0.8); MONOCYTES % 9.2 % (4.4-11.3); NEUTROPHILS # (AUTO) 3.7 (2.1-6.9); NEUTROPHILS % 52.2 % (38.7-80.0); PLATELET COUNT 141 x10e3/uL (140-360); RED BLOOD COUNT 2.79 x10e6/uL (3.6-5.1); RED CELL DISTRIBUTION WIDTH 14.6 % (11.7-14.4)
[2020-04-28 05:41] LABS: ALANINE AMINOTRANSFERASE 28 IU/L (0-55); ALBUMIN 2.9 g/dL (3.5-5.0); ALBUMIN/GLOBULIN RATIO 1.6 (0.8-2.0); ALKALINE PHOSPHATASE 110 IU/L (40-150); ANION GAP 14.3 mmol/L (8-16); BLOOD UREA NITROGEN 9 mg/dL (7-26); BUN/CREATININE RATIO 11 (6-25); CALCIUM 7.5 mg/dL (8.4-10.2); CARBON DIOXIDE 25 mmol/L (22-29); CHLORIDE 107 mmol/L (98-107); CREATINE KINASE 1210 IU/L (29-168); CREATININE, SERUM 0.84 mg/dL (0.57-1.11); EST GLOMERULAR FILTRATION RATE > 60 ML/MIN (60-); GLUCOSE 91 mg/dL (74-118); POTASSIUM 3.3 mmol/L (3.5-5.1); SODIUM 143 mmol/L (136-145)
[2020-04-28] MEDS: LEVOTHYROXINE SODIUM 50 MCG TAB PO SCH (06:13)
[2020-04-28] MEDS: SODIUM CHLORIDE 0.9% 1000ML 1,000 ML IV SCH ×3 (06:13→15:40)
[2020-04-28 06:39] LABS: ANISOCYTOSIS SLIGHT; BAND NEUTROPHILS % (MANUAL) 1 %; EOSINOPHILS % (MANUAL) 1 % (0-7); LYMPHOCYTES % (MANUAL) 15 % (19-48); MONOCYTES % (MANUAL) 9 % (3.4-9.0); MYELOCYTES % (MANUAL) 10 % (0-0); NEUTROPHILS % (MANUAL) 62 % (40-74); NUCLEATED RED BLOOD CELLS 1; PLATELET ESTIMATE ADEQUATE; PLATELET MORPHOLOGY COMMENT NORMAL; RBC MORPHOLOGY COMMENT NORMAL
--- NOTE | 2020-04-28 06:48 | NUR ---
Report given to morning nurse. Pt alert and orient. No acute distress noted.
[2020-04-28] MEDS: INSULIN REGULAR, HUMAN 100 UNIT/1 ML 3ML VIAL SQ SCH ×3 (07:30→16:30)
[2020-04-28] MEDS: CHOLESTYRAMINE 4 GM PACKET PO SCH ×2 (07:30→16:30)
[2020-04-28] MEDS ORDERED: POTASSIUM CHLORIDE 10MEQ EA PO ONE ×2 (07:45→09:30)
[2020-04-28 08:00] VITALS: BP 130/84
[2020-04-28] MEDS ORDERED: CEFEPIME 1GM/NS 0.9% 50 ML 50 ML IV SCH (08:00)
--- NOTE | 2020-04-28 08:43 | History and Physical ---
CHIEF COMPLAINT/HISTORY OF PRESENT ILLNESS: This is a 59-year-old white woman, whose primary treating diagnosis sepsis secondary to left lower lobe pneumonia. She was also diagnosed with [id number] renal insufficiency on admission. The patient's renal insufficiency has completely resolved. Also, on admission, she was diagnosed with rhabdomyolysis. The patient is doing much better clinically, but is only minimally participate with physical therapy; however, the patient is very adamant about being discharged home today. The patient voices no complaints. White blood cell count today 7000 with 62% segmented neutrophils and 1% bands and 15% lymphocytes. The patient's hemoglobin is 8.4 g/dL and platelet count is 141,000. The patient's BUN and creatinine today is 9 and 0.84 respectively. Potassium 3.3. Magnesium 1.9. AST and ALT were 56 and 28, respectively. The patient's creatine kinase is 1210, which is much improved since admission. The patient's Clostridium difficile toxin test performed on April 25, 2020 was negative. Her coronavirus 19 test performed on admission on April 21, 2020, was also negative. REVIEW OF SYSTEMS: As per HPI. PHYSICAL EXAMINATION: GENERAL: She is awake. She is alert. She is fully oriented. She seems more interactive today. She does appear slightly depressed. Once again, she is very adamant about being discharged home. VITAL SIGNS: Height 5 feet 7 inches. Weight is 265 pounds. BMI 41. Blood pressure is 130/84, pulse is 124, respiratory rate 18, temperature 98.0, and oxygen saturation 100% on room air. INTEGUMENT: Skin is warm and dry. Slight pallor. No jaundice or diaphoresis. No skin breakdown or ulcerations appreciated, but the patient does have erythematous macerations in the bilateral inguinal area consistent with cutaneous candidiasis. HEENT: Anicteric sclerae. Moist mucous membranes. NECK: Supple. CARDIOVASCULAR: Distant heart sounds. Tachycardic rate with regular rhythm. LUNGS: No rales. No rhonchi. No wheezes. The patient does have diminished breath sounds at bases. ABDOMEN: Obese, yet benign. EXTREMITIES: The patient has trace edema in the left lower leg, but the erythema has improved significantly. NEUROLOGIC: Intact. No gross deficits appreciated. DIAGNOSES: 1. Sepsis secondary to left lower lobe pneumonia, resolving. 2. Urinary tract infection, resolving. 3. Pikmr-kl-lbxyhgd renal insufficiency, resolved. 4. Rhabdomyolysis, resolving. 5. Extreme obesity, BMI 41. 6. Extensive deep venous thrombosis (left lower extremity). 7. Hypokalemia. 8. Anemia secondary to chronic disease. 9. Physical debility. PLAN: 1. Replete potassium. 2. Discontinue ceftriaxone. 3. Start intravenous cefepime and vancomycin. 4. Repeat chest X-ray. 5. Appreciate Orthopedics input yesterday. 6. We will follow Orthopedics recommendation and proceed with weightbearing as tolerated utilizing tibia/fibula orthosis/walker. 7. Continue oral apixaban or Eliquis for the patient's extensive left lower extremity deep venous thrombosis. 8. I spoke at length with the patient regarding her discharge and safety concerns. 9. I informed the patient that the plan is to still discharge the patient home tomorrow Saturday, April 29, 2020 with likely home health and home physical therapy. I spent 40 minutes in the care of the patient. MD EMANI Martinez/MARGAUX /[id number] MTDD
[2020-04-28 08:47] VITALS: BP 135/81
[2020-04-28] MEDS: PANTOPRAZOLE SOD 40 MG TABEC PO SCH (08:47)
[2020-04-28] MEDS: FUROSEMIDE INJ 10 MG/ML 2 ML VIAL IV SCH ×2 (08:47→17:30)
[2020-04-28] MEDS: APIXABAN 5 MG TABLET PO SCH ×2 (08:47→17:30)
[2020-04-28] MEDS: CALCIUM CARBONATE 500 MG CHEWABLE TABS PO SCH ×2 (08:47→15:00)
[2020-04-28] MEDS ORDERED: VANCOMYCIN 1GM/NS 250 ML 250 ML IV SCH (09:00)
[2020-04-28] MEDS: METOPROLOL SUCCINATE 25 MG TAB XL PO SCH (09:35)
--- NOTE | 2020-04-28 10:44 | Diagnostic Imaging Report ---
TECHNIQUE: Frontal view of the chest. INDICATION: ^possibly LLL pneumonia ^Y COMPARISON: 04/25/2020 DISCUSSION: Limited evaluation due to portable technique. Lines and hardware: Right internal jugular nontunneled central venous catheter is stable. Enteric tube has removed. Heart and mediastinum: Stable. Lungs and pleura: No focal airspace consolidation. No pleural effusion. No pneumothorax. Soft tissues and bones: No acute abnormality. IMPRESSION: Negative for focal consolidation. Signed by: Nithin Victoria MD on 04/28/2020 10:41 AM
[2020-04-28] MEDS: NYSTATIN 15 GM POWDER UD BTL TOP SCH ×2 (11:50→17:30)
[2020-04-28] MEDS: FLUCONAZOLE 200 MG/100 ML 100 ML IV SCH (11:50)
[2020-04-28 12:07] VITALS: BP 145/71
[2020-04-28] MEDS ORDERED: FUROSEMIDE INJ 10 MG/ML 4 ML VIAL IV ONE (13:30)
--- NOTE | 2020-04-28 15:08 | NUR ---
Dictated DC summary: [id number]
--- NOTE | 2020-04-28 15:35 | NUR ---
ORDERS FOR HOME HEALTH SKILLED NURSE AND PT/OT EVAL AND TREAT CHOICE LETTER SIGNED FOR [facility] COPY OF CHOICE LETTER ON CHART AND ONE TO PT PH: [phone] FAX:[phone] CLINICALS FAXED AND CONFIRMATION REC'D PT DISCHARGING HOME TODAY PT HAS MY CARD FOR QUESTIONS/CONCERNS
[2020-04-28] MEDS ORDERED: LEVOFLOXACIN250 MG PO ×2 (15:39→15:43)
[2020-04-28] MEDS ORDERED: ELIQUIS5 MG PO ×2 (15:40→15:43)
[2020-04-28] MEDS ORDERED: PANTOPRAZOLE SO40 MG PO (15:44)
[2020-04-28] MEDS ORDERED: FLUCONAZOLE100 MG PO (15:44)
[2020-04-28 16:07] VITALS: BP 130/74
--- NOTE | 2020-04-28 16:27 | Discharge Summary ---
ADMIT DIAGNOSES: 1. Septic shock. 2. Left lower lobe pneumonia, likely gram-negative monica. 3. Acute renal insufficiency, secondary to acute tubular necrosis and hypovolemia. 4. Rhabdomyolysis. 5. Urinary tract infection. DISCHARGE DIAGNOSES: 1. Septic shock, secondary to left lower lobe pneumonia likely gram-negative monica, resolved. 2. Left lower lobe pneumonia, likely gram-negative monica, resolved. 3. Urinary tract infection, resolved. 4. Extensive deep venous thrombosis (left lower extremity). 5. Acute renal insufficiency, secondary to hypovolemia, resolved. 6. Rhabdomyolysis, resolved. HOSPITAL COURSE: This is a 59-year-old white woman, who was initially admitted to [facility] with diagnosis of sepsis. It was felt her sepsis was a combination of left lower lobe pneumonia and a urinary tract infection. The patient had a urine culture performed this hospitalization, which revealed Estella albicans, less than 10,000 colony-forming units per mL urine and Streptococcus viridans also less than 10,000 colony-forming units per mL urine. Blood cultures remain negative during this hospitalization. The patient improved clinically with intravenous antibiotics, namely cefepime and vancomycin. On admission, the patient's white blood cell count was 28,000 with 67% segmented neutrophils and 20% bands. On day of discharge, the patient's white blood cell count was 7000 with 62% segmented neutrophils and 1% bands. On admission, the patient's BUN and creatinine were 82 and 6.23 respectively with potassium 6.8. The patient's BUN and creatinine on discharge were 9 and 0.84 respectively. On day of discharge, the patient's AST and ALT were 58 and 28 respectively. The patient's creatine kinase level got as high as 6216 during this hospital stay. On day of discharge, the patient's creatine kinase is 1210. The patient's rhabdomyolysis resolved with intravenous fluids. During this hospitalization unfortunately, she was found to have an extensive left lower extremity deep venous thrombosis, that involved clotting of the left common femoral, greater saphenous, proximal femoral, profunda, and popliteal veins. The patient was initially started on intravenous heparin and later transitioned to enoxaparin and then finally to apixaban. During this hospitalization, the patient did participate in physical therapy. The patient's stool was sent for Clostridium difficile toxin detection was negative. On admission, the patient was checked for COVID-19 viral infection and that was also negative. The patient's condition on discharge was stable. During this hospitalization, the patient was seen by Nephrology, namely Dr. Castro, because of acute renal failure. The patient was also seen by modeling agent, namely Dr. Herb Martinez, because of her critical care status. She was also seen by her orthopedic surgeon, namely Dr. Ajay Guillory, because of her previous right tibia surgery in January 2020. The patient was cleared to participate with physical therapy, specifically, weightbearing as tolerated per orthopedics orders. She was also seen by Infectious Disease specialist, namely Dr. Tian, during this hospitalization because of her sepsis. DISCHARGE MEDICATIONS: 1. Levaquin 500 mg one p.o. daily for 7 days. 2. Fluconazole 200 mg p.o. daily for 4 days. 3. Pantoprazole 40 mg by mouth daily. 4. Eliquis 5 mg p.o. b.i.d. 5. Vitamin D3 2000 units daily. 6. Vitamin B12 1000 mcg daily. 7. Doxepin 300 mg at bedtime. 8. Levothyroxine 50 mcg daily. 9. Metoprolol succinate 25 mg b.i.d. 10. Ondansetron 4 mg p.o. b.i.d. p.r.n. nausea. FOLLOWUP INSTRUCTIONS: The patient instructed to follow up with primary care physician, namely myself, Dr. Tapia within a week. Home health nursing with home physical therapy was arranged prior to discharge. MD EMANI Martinez/MARGAUX /[id number] cc: MD Earnest Carrero MD Louis M Hamer, MD MTDD
--- NOTE | 2020-04-28 17:12 | Progress Note ---
DATE: SUBJECTIVE: The patient is seen and evaluated. Case was discussed with Dr. Tian. REVIEW OF SYSTEMS: No complaints. No nausea, vomiting, fever, chills, chest pain, shortness of breath, headache, rash, dysuria. MEDICATIONS: List reviewed. As far as Infectious Disease point of view, the patient is on vancomycin IV, Diflucan, and cefepime. LABORATORY STUDIES: White count of 7.08, hemoglobin 8.4, platelet 141. Sodium 143, potassium 3.3, creatinine 0.84. Toxicology; vancomycin random 9.6 on 04/22. COVID-19 not reactive on 04/21. C difficile negative on 04/25/2020. MICROBIOLOGY: No new microbiology studies available. Blood culture negative on 04/21. Urine culture showed strep viridans and Estella albicans on 04/21. IMAGING: Chest x-ray from 04/28 showed negative for focal consolidation. PHYSICAL EXAMINATION: VITAL SIGNS: Temperature 97.9, pulse 129, blood pressure 145/71, respirations 16. GENERAL: Alert and oriented, very pleasant. CV: S1, S2. CHEST: Equal expansion. Clear to auscultation. No acute distress. ABDOMEN: Soft, obese, nontender. Positive bowel sounds HEENT: Moist. No pallor. No JVD with a right IJ central line. EXTREMITIES: Right lower extremity boot. No obvious acute finding. ASSESSMENT AND PLAN: 1. Sepsis secondary to left lower lobe pneumonia. 2. Urinary tract infection. 3. Acute on chronic renal insufficiency, which improved. 4. Morbid obesity with a BMI of 41. 5. Rhabdomyolysis, resolved. 6. Extensive deep venous thrombosis, left lower extremity. 7. The patient is currently on vancomycin IV, cefepime, and Diflucan. The patient may be discharged with Keflex p.o., discussed with the nurse and discussed with Dr. Tian. Dictated by Link Dia PA-C (Al) Earnest Tian MD /MODL /[id number]
[2020-04-28 17:17] LABS: TOTAL PROTEIN, URINE 30.1 mg/dL (1-14)
[2020-04-28] MEDS ORDERED: ONDANSETRON HCL 4 MG ORAL DISINTEGRATING TAB PO PRN (18:15)
--- NOTE | 2020-04-28 18:24 | NUR ---
patient discharged. central line removed from neck, tip intact. patient clear on discharge instructions and aware of prescriptions called into [facility]. aware of follow up appt needed. at bedside for discharge instructions. patient wheeled off unit in stable condition.
--- NOTE | 2020-04-29 14:48 | NUR ---
CM REC'D PHONE CALL YESTERDAY EVENING FROM OSBALDO MCGOWAN WITH [facility] [place] WHO STATES THEY ARE OUT OF NETWORK WITH [facility] CM CALLED SEVERAL COMPANIES INCLUDING: [facility], [facility], [facility] AND [facility] ALL OF WHOM ARE OUT OF NETWORK WITH INSURANCE CM CALLED [facility] AT [email or web address] [phone] SPOKE WITH CRYSTAL WHO STATES PT HAS A 1,900 DOLLAR OUT OF POCKET FOR HOME HEALTH AND COULD NOT GIVE ME A LIST OF IN NETWORK PROVIDERS; TOLD ME THAT SINCE [facility] IS A [employer] PPO PRODUCT ANYONE WHO TAKE [employer]IGNA WILL TAKE [facility] CM CALLED PT'S CELL AT [phone], NO ANSWER, LEFT VOICE MAIL WITH REQUEST FOR HER TO RETURN MY CALL CM CALLED PT'S DTR, JACKIE HARRIS AT [phone]; LEFT VOICE MAIL FOR SHE OR HER MOTHER TO RETURN MY CALL TO DISCUSS HOME HEALTH CM CALLED RAZIA HARRIS AT [phone]; HE ANSWERED PHONE AND I EXPLAINED I WAS TRYING TO REACH HIS RE: HOME HEALTH SITUATION. HE STATED HE IS FIXING TO TAKE LUNCH AND WILL CALL HER AND HAVE HER RETURN MY CALL. OF 3PM TODAY MRS HARRIS HAS NOT RETURNED MY CALL . F/U WITH 2 MORE CALLS TO HER CELL AND LEFT 2 MORE VOICE MAILS. CM CALLED AND NOTIFIED DR SMITH OF [facility] SITUATION AND HE STATES, "OK THANK YOU. wE WILL ADDRESS NEXT WEEK ON FOLLOW UP VISIT".
== END 2020-04-28 17:27 | disposition home or self-care (01) | DRG 871 ==
LOC: ER 18:40 → ERHOLD 22:20 → ICU 04-22 00:26 → MED/SURG 04-26 14:30
PROVIDERS: ADMIT Internal Medicine; ATTEND Internal Medicine
PROC: 02HV33Z Insertion of Infusion Device into Superior Vena Cava, Percutaneous Approach (ICD-10-PCS; principal; 2020-04-21)
DX: A41.9 Sepsis, unspecified organism (principal); R65.21 Severe sepsis with septic shock; N17.0 Acute kidney failure with tubular necrosis; J15.6 Pneumonia due to other Gram-negative bacteria; M62.82 Rhabdomyolysis; I82.4Z2 Acute embolism and thrombosis of unspecified deep veins of left distal lower extremity; Z68.41 Body mass index [BMI] 40.0-44.9, adult; B37.49 Other urogenital candidiasis; E87.4 Mixed disorder of acid-base balance; E86.1 Hypovolemia; I12.9 Hypertensive chronic kidney disease with stage 1 through stage 4 chronic kidney disease, or unspecified chronic kidney disease; N18.3 Chronic kidney disease, stage 3 (moderate); Z98.84 Bariatric surgery status; E87.5 Hyperkalemia; E11.21 Type 2 diabetes mellitus with diabetic nephropathy; E66.01 Morbid (severe) obesity due to excess calories; E83.42 Hypomagnesemia; E83.51 Hypocalcemia; D69.6 Thrombocytopenia, unspecified; M17.0 Bilateral primary osteoarthritis of knee; E78.1 Pure hyperglyceridemia; E11.22 Type 2 diabetes mellitus with diabetic chronic kidney disease; D63.8 Anemia in other chronic diseases classified elsewhere; E87.6 Hypokalemia; B37.2 Candidiasis of skin and nail; Z11.59 Encounter for screening for other viral diseases; E03.9 Hypothyroidism, unspecified
CPT/HCPCS: 36415; 36600; 51700; 71045; 74018; 74176; 76770; 80048; 80053; 80202; 81001; 81050; 82270; 82550; 82553; 82805; 82948; 83605; 83735; 84100; 84156; 84443; 84484; 85025; 85610; 85730; 87040; 87086; 87493; 93005; 93970; 96361; 97139; 99285; J0456; J0610; J0692; J0696; J1450; J1650; J1817; J1940; J2020; J2405; J3370; J3475; J7030; J7050; J7060; J7070; J7121; J7799; P9047; U0002

== ENCOUNTER 2020-07-13 03:03 | Inpatient (IN) | payer OTHER ==
[~2020-07-13] VITALS: Ht 165.1 cm; Wt 117.9 kg
[~2020-07-13 03:03] MED LIST changes: +ELIQUIS5 MG PO; +FLUCONAZOLE100 MG PO; +LEVOFLOXACIN250 MG PO; +PANTOPRAZOLE SO40 MG PO
[2020-07-13] MEDS ORDERED: ASPIRIN 81 MG CHEW TAB PO ONE (03:30)
[2020-07-13] MEDS ORDERED: CEFTRIAXONE SOD 1 GM/NS 50 ML 50 ML IV ONE (03:30)
[2020-07-13 03:40] LABS: BASOPHILS # (AUTO) 0.1 (0.0-0.1); BASOPHILS % 0.9 % (0.0-1.0); EOSINOPHILS # (AUTO) 0.1 (0.0-0.4); EOSINOPHILS % 1.1 % (0.0-6.0); HEMATOCRIT 44.6 % (34.2-44.1); HEMOGLOBIN 14.6 g/dL (12.0-16.0); LYMPHOCYTES # (AUTO) 3.2 (1.0-3.2); LYMPHOCYTES % 43.4 % (18.0-39.1); MEAN CORPUSCULAR HEMOGLOBIN 29.8 pg (28-32); MEAN CORPUSCULAR HGB CONC 32.7 g/dL (31-35); MONOCYTES # (AUTO) 0.5 (0.2-0.8); MONOCYTES % 6.1 % (4.4-11.3); NEUTROPHILS # (AUTO) 3.4 (2.1-6.9); NEUTROPHILS % 46.1 % (38.7-80.0); PLATELET COUNT 300 x10e3/uL (140-360); RED CELL DISTRIBUTION WIDTH 14.4 % (11.7-14.4)
[2020-07-13 03:58] LABS: ALANINE AMINOTRANSFERASE 20 IU/L (0-55); ALBUMIN 2.8 g/dL (3.5-5.0); ALKALINE PHOSPHATASE 143 IU/L (40-150); ANION GAP 16.6 mmol/L (8-16); BLOOD UREA NITROGEN 14 mg/dL (7-26); BUN/CREATININE RATIO 12 (6-25); CALCIUM 8.5 mg/dL (8.4-10.2); CARBON DIOXIDE 22 mmol/L (22-29); CHLORIDE 103 mmol/L (98-107); CREATINE KINASE 16 IU/L (29-168); CREATININE, SERUM 1.19 mg/dL (0.57-1.11); EST GLOMERULAR FILTRATION RATE 46 ML/MIN (60-); GLUCOSE 189 mg/dL (74-118); POTASSIUM 3.6 mmol/L (3.5-5.1); SODIUM 138 mmol/L (136-145)
[2020-07-13] MEDS ORDERED: SODIUM CHLORIDE 0.9% 1000ML 1,000 ML IV ONE ×2 (04:00)
[2020-07-13] MEDS ORDERED: ENOXAPARIN SODIUM INJ 100 MG/ML SYR SC SCH ×2 (05:00→09:00)
[2020-07-13] MEDS ORDERED: SODIUM CHLORIDE 0.9% 500ML 500 ML IV ONE (05:00)
[2020-07-13] MEDS ORDERED: SODIUM CHLORIDE 0.9% 50ML 50 ML ONE (05:50)
[2020-07-13] MEDS ORDERED: IOPAMIDOL 370 MG/ML 200 ML INFUS..BTL INJ ONE (05:50)
[2020-07-13] MEDS ORDERED: ONDANSETRON HCL INJ 2MG/ML 2ML 2 MG/ML VIAL IV PRN (06:45)
[2020-07-13] MEDS: SODIUM CHLORIDE 0.9% 1000ML 1,000 ML IV SCH ×3 (07:08→22:11)
[2020-07-13 13:07] VITALS: BP 121/77
[2020-07-13 13:10] LABS: CLARITY,URINE CLEAR (CLEAR); COLOR,URINE AMBER (YELLOW); KETONES,URINE NEGATIVE (NEGATIVE); LEUKOCYTE ESTERASE ,URINE NEGATIVE (NEGATIVE); NITRITE,URINE NEGATIVE (NEGATIVE); PROTEIN,URINE DIPSTICK NEGATIVE (NEGATIVE); URINE UROBILINOGEN 0.2 mg/dL (0.2 - 1)
[2020-07-13 13:13] VITALS: BP 121/77
[2020-07-13] MEDS ORDERED: GABAPENTIN100 MG PEG (13:21)
[2020-07-13 13:26] LABS: EPITHELIAL CELLS,URINE FEW /LPF; WBC,URINE (MAN) 0-5 /HPF (0-5)
[2020-07-13 13:30] VITALS: BP 121/77
[2020-07-13] MEDS: MORPHINE SULFATE INJ 4 MG/ML INJ 1ML IV PRN (13:40)
[2020-07-13 16:00] VITALS: BP 113/84
[2020-07-13] MEDS: ENOXAPARIN SODIUM INJ 100 MG/ML SYR SC SCH (16:08)
[2020-07-13] MEDS ORDERED: ONDANSETRON HCL 4 MG ORAL DISINTEGRATING TAB PO PRN (18:00)
[2020-07-13 20:51] VITALS: BP 115/79
[2020-07-13 20:56] VITALS: BP 115/79
[2020-07-13] MEDS ORDERED: DOXEPIN HCL 25 MG CAP PO SCH (21:00)
[2020-07-14] VITALS (9 sets, daily range): BP systolic 91–113; BP diastolic 51–71
[2020-07-14] MEDS: MORPHINE SULFATE INJ 4 MG/ML INJ 1ML IV PRN (02:37)
[2020-07-14] MEDS: SODIUM CHLORIDE 0.9% 1000ML 1,000 ML IV SCH ×3 (05:14→21:03)
[2020-07-14] MEDS: LEVOTHYROXINE SODIUM 50 MCG TAB PO SCH (05:14)
[2020-07-14] MEDS: ENOXAPARIN SODIUM INJ 100 MG/ML SYR SC SCH ×2 (05:14→17:41)
[2020-07-14 05:15] LABS: BASOPHILS % 0.7 % (0.0-1.0); EOSINOPHILS # (AUTO) 0.1 (0.0-0.4); EOSINOPHILS % 1.3 % (0.0-6.0); HEMATOCRIT 41.6 % (34.2-44.1); HEMOGLOBIN 13.2 g/dL (12.0-16.0); LYMPHOCYTES # (AUTO) 1.5 (1.0-3.2); LYMPHOCYTES % 27.6 % (18.0-39.1); MEAN CORPUSCULAR HEMOGLOBIN 29.2 pg (28-32); MEAN CORPUSCULAR HGB CONC 31.7 g/dL (31-35); MONOCYTES # (AUTO) 0.4 (0.2-0.8); MONOCYTES % 7.9 % (4.4-11.3); NEUTROPHILS # (AUTO) 3.3 (2.1-6.9); NEUTROPHILS % 61.6 % (38.7-80.0); PLATELET COUNT 212 x10e3/uL (140-360); RED BLOOD COUNT 4.52 x10e6/uL (3.6-5.1); RED CELL DISTRIBUTION WIDTH 14.5 % (11.7-14.4)
[2020-07-14 05:39] LABS: ALBUMIN 2.6 g/dL (3.5-5.0); ANION GAP 11.5 mmol/L (8-16); CREATININE, SERUM 0.97 mg/dL (0.57-1.11); POTASSIUM 3.5 mmol/L (3.5-5.1)
[2020-07-14 06:04] LABS: CALCIUM IONIZED 1.1 mmol/L (1.09-1.30)
[2020-07-14 06:37] LABS: MAGNESIUM 1.6 MG/DL (1.3-2.1); PHOSPHORUS 2.9 MG/DL (2.3-4.7)
[2020-07-14 07:09] LABS: FREE T4 (FREE THYROXINE) 0.93 ng/dL (0.8-1.8); THYROID STIMULATING HORMONE 6.494 uIU/mL (0.350-4.940)
[2020-07-14] MEDS ORDERED: APIXABAN 5 MG TABLET PO SCH (09:00)
[2020-07-14] MEDS ORDERED: METOPROLOL SUCCINATE 25 MG TAB XL PO SCH (09:00)
[2020-07-14] MEDS ORDERED: LEVOTHYROXINE SODIUM 50 MCG TAB PO SCH (09:00)
[2020-07-14] MEDS ORDERED: POTASSIUM CHLORIDE 20 MEQ TAB CR PO ONE (09:21)
[2020-07-14] MEDS ORDERED: ALBUMIN 5% 0.05 GM/ML BTL IV ONE (09:30)
[2020-07-14] MEDS ORDERED: MAGNESIUM OXIDE 400 MG TAB PO ONE (09:30)
[2020-07-14] MEDS: GABAPENTIN 100 MG CAP PEG SCH ×2 (09:33→17:41)
[2020-07-14] MEDS: PANTOPRAZOLE SOD 40 MG TABEC PO SCH (09:33)
[2020-07-14] MEDS ORDERED: SODIUM CHLORIDE 0.9% 1000ML 500 ML IV ONE (10:00)
[2020-07-14] MEDS ORDERED: ALBUMIN 5% 250ML 250 ML IV ONE (10:30)
[2020-07-14] MEDS: METOPROLOL TARTRATE 25 MG TAB PO SCH ×2 (12:07→17:41)
[2020-07-14] MEDS: CEFEPIME 1GM/NS 0.9% 50 ML 50 ML IV SCH ×2 (13:12→21:02)
[2020-07-14] MEDS ORDERED: IOPAMIDOL 370 MG/ML 200 ML INFUS..BTL INJ ONE (15:54)
[2020-07-14] MEDS ORDERED: SODIUM CHLORIDE 0.9% 50ML 50 ML ONE (15:54)
[2020-07-15 00:34] VITALS: BP 116/71
[2020-07-15] MEDS: CEFEPIME 1GM/NS 0.9% 50 ML 50 ML IV SCH ×2 (05:06→14:35)
[2020-07-15] MEDS: ENOXAPARIN SODIUM INJ 100 MG/ML SYR SC SCH ×2 (05:06→16:16)
[2020-07-15] MEDS: LEVOTHYROXINE SODIUM 50 MCG TAB PO SCH (05:06)
[2020-07-15] MEDS: SODIUM CHLORIDE 0.9% 1000ML 1,000 ML IV SCH ×2 (05:07→14:34)
[2020-07-15 05:28] VITALS: BP 116/72
[2020-07-15 05:49] LABS: BASOPHILS % 0.7 % (0.0-1.0); EOSINOPHILS # (AUTO) 0.1 (0.0-0.4); EOSINOPHILS % 2.2 % (0.0-6.0); HEMATOCRIT 37.2 % (34.2-44.1); HEMOGLOBIN 11.8 g/dL (12.0-16.0); LYMPHOCYTES # (AUTO) 1.5 (1.0-3.2); LYMPHOCYTES % 33.3 % (18.0-39.1); MEAN CORPUSCULAR HEMOGLOBIN 29.1 pg (28-32); MEAN CORPUSCULAR HGB CONC 31.7 g/dL (31-35); MEAN CORPUSCULAR VOLUME 91.9 fL (81-99); MONOCYTES # (AUTO) 0.5 (0.2-0.8); MONOCYTES % 11.9 % (4.4-11.3); NEUTROPHILS # (AUTO) 2.3 (2.1-6.9); NEUTROPHILS % 50.6 % (38.7-80.0); PLATELET COUNT 167 x10e3/uL (140-360); RED BLOOD COUNT 4.05 x10e6/uL (3.6-5.1); RED CELL DISTRIBUTION WIDTH 14.6 % (11.7-14.4)
[2020-07-15 06:13] LABS: ALANINE AMINOTRANSFERASE 19 IU/L (0-55); ALBUMIN 2.6 g/dL (3.5-5.0); ALBUMIN/GLOBULIN RATIO 1.2 (0.8-2.0); ALKALINE PHOSPHATASE 109 IU/L (40-150); ANION GAP 12.3 mmol/L (8-16); BLOOD UREA NITROGEN 7 mg/dL (7-26); BUN/CREATININE RATIO 8 (6-25); CARBON DIOXIDE 21 mmol/L (22-29); CHLORIDE 109 mmol/L (98-107); CREATININE, SERUM 0.87 mg/dL (0.57-1.11); EST GLOMERULAR FILTRATION RATE > 60 ML/MIN (60-); GLUCOSE 98 mg/dL (74-118); POTASSIUM 3.3 mmol/L (3.5-5.1); SODIUM 139 mmol/L (136-145)
[2020-07-15] MEDS ORDERED: MIDODRINE 2.5 MG TAB PO SCH (08:00)
[2020-07-15 08:37] VITALS: BP 106/75
[2020-07-15] MEDS ORDERED: METOPROLOL SUCCINATE 25 MG TAB XL PO SCH (09:00)
[2020-07-15] MEDS ORDERED: POLYETHYLENE GLYCOL 3350 17 GM PACK PO SCH (09:00)
[2020-07-15] MEDS ORDERED: THIAMINE HCL 100 MG TAB PO SCH (09:00)
[2020-07-15 09:05] VITALS: BP 106/75
[2020-07-15] MEDS: GABAPENTIN 100 MG CAP PEG SCH ×2 (09:09→16:16)
[2020-07-15] MEDS: PANTOPRAZOLE SOD 40 MG TABEC PO SCH (09:09)
[2020-07-15] MEDS ORDERED: OYST-CAL-D 500MG TABLET PO ONE (10:45)
[2020-07-15] MEDS ORDERED: POTASSIUM CHLORIDE 20 MEQ TAB CR PO ONE (10:45)
[2020-07-15] MEDS ORDERED: CEFDINIR300 MG PO (11:10)
[2020-07-15] MEDS ORDERED: TOPROL XL25 MG PO (11:10)
[2020-07-15 17:10] VITALS: BP 112/81
== END 2020-07-15 17:45 | disposition home or self-care (01) | DRG 871 ==
LOC: ER 03:39 → INTOOBSV 06:45 → ERHOLD 06:45 → MED/SURG2 12:58 → OBSVTOIN 07-14 09:29
PROVIDERS: ADMIT Internal Medicine; ATTEND Internal Medicine
DX: A41.9 Sepsis, unspecified organism (principal); R65.21 Severe sepsis with septic shock; M00.862 Arthritis due to other bacteria, left knee; I95.1 Orthostatic hypotension; E86.0 Dehydration; I12.9 Hypertensive chronic kidney disease with stage 1 through stage 4 chronic kidney disease, or unspecified chronic kidney disease; N18.30 Chronic kidney disease, stage 3 unspecified; Z86.718 Personal history of other venous thrombosis and embolism; G62.9 Polyneuropathy, unspecified; R07.89 Other chest pain; E03.9 Hypothyroidism, unspecified; R00.0 Tachycardia, unspecified; Z98.84 Bariatric surgery status; Z20.828 Contact with and (suspected) exposure to other viral communicable diseases; B96.89 Other specified bacterial agents as the cause of diseases classified elsewhere
CPT/HCPCS: 36415; 70450; 71045; 71260; 74177; 80053; 81001; 82550; 82553; 83605; 83735; 84100; 84425; 84439; 84443; 84484; 85025; 87040; 87086; 93005; 93306; 97139; 99251; 99285; G0378; J0692; J0696; J1650; J2270; J3411; J7030; P9045; Q0162; Q9967; U0002

== ENCOUNTER 2020-07-22 08:52 | Outpatient (RCR) | payer OTHER ==
[~2020-07-22 08:52] MED LIST changes: +CEFDINIR300 MG PO; +GABAPENTIN100 MG PEG; +TOPROL XL25 MG PO
== END 2020-08-04 ==
LOC: PT 08:52
PROVIDERS: ATTEND Specialist
DX: S82.251D Displaced comminuted fracture of shaft of right tibia, subsequent encounter for closed fracture with routine healing (principal); M62.81 Muscle weakness (generalized)

== ENCOUNTER 2020-08-31 15:56 | Observation (INO) | payer OTHER ==
[~2020-08-31] VITALS: Ht 165.1 cm; Wt 99.8 kg
[2020-08-31] MEDS ORDERED: SODIUM CHLORIDE 0.9% 1000ML 1,000 ML IV STA ×2 (16:12→16:50)
[2020-08-31 16:49] LABS: BASOPHILS % 0.7 % (0.0-1.0); EOSINOPHILS # (AUTO) 0.1 (0.0-0.4); EOSINOPHILS % 1.1 % (0.0-6.0); HEMATOCRIT 39.5 % (34.2-44.1); LYMPHOCYTES # (AUTO) 0.7 (1.0-3.2); LYMPHOCYTES % 16.1 % (18.0-39.1); MEAN CORPUSCULAR HGB CONC 30.4 g/dL (31-35); MEAN CORPUSCULAR VOLUME 95.4 fL (81-99); MONOCYTES # (AUTO) 0.3 (0.2-0.8); MONOCYTES % 6.3 % (4.4-11.3); NEUTROPHILS # (AUTO) 3.3 (2.1-6.9); NEUTROPHILS % 75.3 % (38.7-80.0); PLATELET COUNT 190 x10e3/uL (140-360); RED BLOOD COUNT 4.14 x10e6/uL (3.6-5.1); RED CELL DISTRIBUTION WIDTH 17.1 % (11.7-14.4)
[2020-08-31 16:56] LABS: INR 1.56; PROTHROMBIN TIME 19.8 seconds (11.9-14.5)
[2020-08-31 16:57] LABS: PARTIAL THROMBOPLASTIN TIME 30.5 seconds (23.8-35.5)
[2020-08-31 17:04] LABS: ALBUMIN 2.4 g/dL (3.5-5.0); ALBUMIN/GLOBULIN RATIO 0.9 (0.8-2.0); ANION GAP 14.9 mmol/L (8-16); CREATININE, SERUM 1.18 mg/dL (0.57-1.11); MAGNESIUM 1.6 MG/DL (1.3-2.1); POTASSIUM 3.9 mmol/L (3.5-5.1)
[2020-08-31 17:11] LABS: CREATINE KINASE MB 0.6 ng/mL (0-5.0)
[2020-08-31 17:12] LABS: B-TYPE NATRIURETIC PEPTIDE2 27.2 pg/mL (0-100)
[2020-08-31] MEDS ORDERED: CEFTRIAXONE SOD 1 GM/NS 50 ML 50 ML IV ONE (17:15)
[2020-08-31 17:20] LABS: CLARITY,URINE SL CLOUDY (CLEAR); COLOR,URINE YELLOW (YELLOW); KETONES,URINE NEGATIVE (NEGATIVE); LEUKOCYTE ESTERASE ,URINE NEGATIVE (NEGATIVE); NITRITE,URINE NEGATIVE (NEGATIVE); PROTEIN,URINE DIPSTICK TRACE (NEGATIVE); URINE UROBILINOGEN 0.2 mg/dL (0.2 - 1)
[2020-08-31 17:29] LABS: BACTERIA,URINE RARE /HPF; EPITHELIAL CELLS,URINE RARE /LPF; MUCUS,URINE FEW (RARE); RBC,URINE 0-5 /HPF (0-5); WBC,URINE (MAN) 0-5 /HPF (0-5)
[2020-08-31] MEDS ORDERED: SODIUM CHLORIDE 0.9% 1000ML 1,000 ML IV ONE (20:00)
[2020-08-31] MEDS: SODIUM CHLORIDE 0.9% 1000ML 1,000 ML IV SCH (22:27)
[2020-09-01] MEDS: SODIUM CHLORIDE 0.9% 1000ML 1,000 ML IV SCH ×2 (03:15→10:14)
[2020-09-01 06:58] LABS: BASOPHILS % 0.6 % (0.0-1.0); EOSINOPHILS # (AUTO) 0.1 (0.0-0.4); EOSINOPHILS % 1.4 % (0.0-6.0); HEMATOCRIT 35.5 % (34.2-44.1); HEMOGLOBIN 10.8 g/dL (12.0-16.0); LYMPHOCYTES # (AUTO) 0.7 (1.0-3.2); LYMPHOCYTES % 18.7 % (18.0-39.1); MEAN CORPUSCULAR HEMOGLOBIN 29.6 pg (28-32); MEAN CORPUSCULAR HGB CONC 30.4 g/dL (31-35); MEAN CORPUSCULAR VOLUME 97.3 fL (81-99); MONOCYTES # (AUTO) 0.3 (0.2-0.8); MONOCYTES % 8.6 % (4.4-11.3); NEUTROPHILS # (AUTO) 2.4 (2.1-6.9); NEUTROPHILS % 69.8 % (38.7-80.0); PLATELET COUNT 155 x10e3/uL (140-360); RED BLOOD COUNT 3.65 x10e6/uL (3.6-5.1); RED CELL DISTRIBUTION WIDTH 16.9 % (11.7-14.4)
[2020-09-01] MEDS ORDERED: LEVOTHYROXINE SODIUM 50 MCG TAB PO SCH (07:30)
[2020-09-01] MEDS ORDERED: PANTOPRAZOLE SOD 40 MG TABEC PO SCH (07:30)
[2020-09-01 07:58] LABS: ALANINE AMINOTRANSFERASE 31 IU/L (0-55); ALBUMIN/GLOBULIN RATIO 0.9 (0.8-2.0); ALKALINE PHOSPHATASE 93 IU/L (40-150); ANION GAP 12.7 mmol/L (8-16); BLOOD UREA NITROGEN 6 mg/dL (7-26); BUN/CREATININE RATIO 6 (6-25); CALCIUM 7.1 mg/dL (8.4-10.2); CARBON DIOXIDE 24 mmol/L (22-29); CHLORIDE 111 mmol/L (98-107); CREATININE, SERUM 0.94 mg/dL (0.57-1.11); EST GLOMERULAR FILTRATION RATE > 60 ML/MIN (60-); GLUCOSE 117 mg/dL (74-118); POTASSIUM 3.7 mmol/L (3.5-5.1); SODIUM 144 mmol/L (136-145)
[2020-09-01 08:22] LABS: CREATINE KINASE MB 0.6 ng/mL (0-5.0)
[2020-09-01] MEDS ORDERED: GABAPENTIN 100 MG CAP PEG SCH (09:00)
[2020-09-01] MEDS ORDERED: APIXABAN 5 MG TABLET PO SCH (09:00)
[2020-09-01] MEDS ORDERED: SODIUM CHLORIDE 0.9% 50ML 50 ML ONE (10:23)
[2020-09-01] MEDS ORDERED: IOPAMIDOL 370 MG/ML 200 ML INFUS..BTL INJ ONE (10:23)
[2020-09-01] MEDS ORDERED: DOXYCYCLINE HY100 MG PO (12:59)
[2020-09-01] MEDS ORDERED: VANCOMYCIN 1GM/NS 250 ML 250 ML IV ONE (13:00)
[2020-09-01] MEDS ORDERED: CEFEPIME 2 GM/NS 0.9% 100 ML 100 ML IV ONE (13:00)
[2020-09-01 15:46] VITALS: BP 100/60
[2020-09-01] MEDS ORDERED: DOXEPIN HCL 25 MG CAP PO SCH (21:00)
== END 2020-09-01 15:46 | disposition home or self-care (01) ==
LOC: ER 16:12 → ERHOLD 18:37
PROVIDERS: ADMIT Internal Medicine; ATTEND Internal Medicine
DX: A41.9 Sepsis, unspecified organism (principal); J15.6 Pneumonia due to other Gram-negative bacteria; I82.4Z2 Acute embolism and thrombosis of unspecified deep veins of left distal lower extremity; R62.7 Adult failure to thrive; N28.9 Disorder of kidney and ureter, unspecified; E43 Unspecified severe protein-calorie malnutrition; I95.9 Hypotension, unspecified; E86.0 Dehydration; Z20.822 Contact with and (suspected) exposure to COVID-19; I10 Essential (primary) hypertension; E03.9 Hypothyroidism, unspecified; E66.9 Obesity, unspecified; K76.0 Fatty (change of) liver, not elsewhere classified; E78.5 Hyperlipidemia, unspecified; R00.1 Bradycardia, unspecified; E11.9 Type 2 diabetes mellitus without complications; M17.0 Bilateral primary osteoarthritis of knee; G62.9 Polyneuropathy, unspecified; E78.1 Pure hyperglyceridemia; Z77.22 Contact with and (suspected) exposure to environmental tobacco smoke (acute) (chronic); Z88.2 Allergy status to sulfonamides; Z79.02 Long term (current) use of antithrombotics/antiplatelets; Z68.36 Body mass index [BMI] 36.0-36.9, adult; Z96.652 Presence of left artificial knee joint
CPT/HCPCS: 36415 ×2; 71045; 71260; 74177; 80053 ×2; 80162; 81001; 82550 ×2; 82553 ×2; 83605 ×2; 83735; 83880; 84484 ×2; 85025 ×2; 85610; 85651; 85730; 86140; 87040; 87086; 93005; 99285; G0378 ×2; J0696; J3370; J7030 ×2; Q9967; S0164; U0002

== ENCOUNTER 2020-11-01 15:19 | Inpatient (IN) | payer OTHER ==
[~2020-11-01] VITALS: Ht 167.6 cm; Wt 91.9 kg
[2020-11-01 16:40] VITALS: BP 132/82
[2020-11-01 17:36] LABS: BASOPHILS % 0.9 % (0.0-1.0); EOSINOPHILS % 0.7 % (0.0-6.0); HEMATOCRIT 38.5 % (34.2-44.1); HEMOGLOBIN 12.3 g/dL (12.0-16.0); LYMPHOCYTES # (AUTO) 0.8 (1.0-3.2); LYMPHOCYTES % 17.6 % (18.0-39.1); MEAN CORPUSCULAR HEMOGLOBIN 28.5 pg (28-32); MEAN CORPUSCULAR HGB CONC 31.9 g/dL (31-35); MEAN CORPUSCULAR VOLUME 89.3 fL (81-99); MONOCYTES # (AUTO) 0.4 (0.2-0.8); MONOCYTES % 7.9 % (4.4-11.3); NEUTROPHILS % 68.4 % (38.7-80.0); PLATELET COUNT 217 x10e3/uL (140-360); RED BLOOD COUNT 4.31 x10e6/uL (3.6-5.1); RED CELL DISTRIBUTION WIDTH 16.8 % (11.7-14.4)
[2020-11-01 17:55] LABS: ALBUMIN 2.3 g/dL (3.5-5.0); ALBUMIN/GLOBULIN RATIO 0.9 (0.8-2.0); ANION GAP 16.3 mmol/L (8-16); CALCIUM 7.8 mg/dL (8.4-10.2); CREATININE, SERUM 1.01 mg/dL (0.57-1.11); POTASSIUM 3.3 mmol/L (3.5-5.1)
[2020-11-01 18:11] LABS: DIGOXIN 1.34 ng/mL (0.8-2.0); THYROID STIMULATING HORMONE 4.145 uIU/mL (0.350-4.940)
[2020-11-01 18:14] VITALS: BP 132/82
[2020-11-01] MEDS: APIXAB 2.5 MG TABLET PO SCH (18:23)
[2020-11-01 18:24] VITALS: BP 132/82
[2020-11-01] MEDS ORDERED: POTASSIUM CHLORIDE 10MEQ EA PO ONE ×2 (18:30→20:00)
[2020-11-01 20:00] VITALS: BP 132/82
[2020-11-01] MEDS: SODIUM CHLORIDE 0.9% 1000ML 1,000 ML IV SCH ×2 (20:30→23:00)
[2020-11-01 20:35] VITALS: BP 104/65
[2020-11-01] MEDS: METRONIDAZOLE 500 MG TAB PO SCH (21:00)
[2020-11-01] MEDS: ONDANSETRON HCL INJ 2MG/ML 2ML 2 MG/ML VIAL IV PRN (22:00)
[2020-11-02 02:21] LABS: CLARITY,URINE CLOUDY (CLEAR); COLOR,URINE AMBER (YELLOW); KETONES,URINE 2+ (NEGATIVE); LEUKOCYTE ESTERASE ,URINE SMALL (NEGATIVE); NITRITE,URINE NEGATIVE (NEGATIVE); PROTEIN,URINE DIPSTICK 1+ (NEGATIVE); URINE UROBILINOGEN 0.2 mg/dL (0.2 - 1)
[2020-11-02 02:30] LABS: BACTERIA,URINE MODERATE /HPF; EPITHELIAL CELLS,URINE MODERATE /LPF; WBC,URINE (MAN) 21-50 /HPF (0-5)
[2020-11-02] MEDS: ONDANSETRON HCL INJ 2MG/ML 2ML 2 MG/ML VIAL IV PRN (05:00)
[2020-11-02] MEDS: LEVOTHYROXINE SODIUM 75 MCG TAB PO SCH (06:00)
[2020-11-02 06:15] LABS: HEMATOCRIT 37.1 % (34.2-44.1); HEMOGLOBIN 11.7 g/dL (12.0-16.0); LYMPHOCYTES # (AUTO) 0.9 (1.0-3.2); LYMPHOCYTES % 24.1 % (18.0-39.1); MEAN CORPUSCULAR HEMOGLOBIN 28.1 pg (28-32); MEAN CORPUSCULAR HGB CONC 31.5 g/dL (31-35); MONOCYTES # (AUTO) 0.4 (0.2-0.8); MONOCYTES % 9.8 % (4.4-11.3); NEUTROPHILS # (AUTO) 2.3 (2.1-6.9); NEUTROPHILS % 58.9 % (38.7-80.0); PLATELET COUNT 217 x10e3/uL (140-360); RED BLOOD COUNT 4.17 x10e6/uL (3.6-5.1); RED CELL DISTRIBUTION WIDTH 17.1 % (11.7-14.4)
[2020-11-02 06:42] LABS: ALANINE AMINOTRANSFERASE 16 IU/L (0-55); ALBUMIN 2.2 g/dL (3.5-5.0); ALKALINE PHOSPHATASE 128 IU/L (40-150); ANION GAP 13.9 mmol/L (8-16); BLOOD UREA NITROGEN 6 mg/dL (7-26); BUN/CREATININE RATIO 7 (6-25); CALCIUM 7.4 mg/dL (8.4-10.2); CARBON DIOXIDE 24 mmol/L (22-29); CHLORIDE 106 mmol/L (98-107); CREATININE, SERUM 0.85 mg/dL (0.57-1.11); EST GLOMERULAR FILTRATION RATE > 60 ML/MIN (60-); GLUCOSE 103 mg/dL (74-118); POTASSIUM 3.9 mmol/L (3.5-5.1); SODIUM 140 mmol/L (136-145)
[2020-11-02] MEDS ORDERED: CEFEPIME HCL 1 GM VIAL IV SCH (07:15)
[2020-11-02] MEDS ORDERED: PANTOPRAZOLE SOD 40 MG TABEC PO SCH ×2 (07:30→09:00)
[2020-11-02 07:59] VITALS: BP 103/58
[2020-11-02 08:15] VITALS: BP 103/58
[2020-11-02] MEDS: PROMETHAZINE 12.5MG/ NACL 0.9% 12.5 MG/50 ML BAG IV PRN ×4 (08:36→23:36)
[2020-11-02 08:50] LABS: AMYLASE 23 U/L (25-125); LIPASE 23 U/L (8-78)
[2020-11-02] MEDS: CEFEPIME HCL 1GM 1 GM in SODIUM CHLORIDE 0.9% 50ML 50 ML IV SCH ×2 (09:22→20:00)
[2020-11-02] MEDS: APIXAB 2.5 MG TABLET PO SCH ×2 (09:22→17:36)
[2020-11-02] MEDS: METRONIDAZOLE 500 MG TAB PO SCH ×2 (09:23→15:37)
[2020-11-02 11:14] VITALS: BP_SYST 112; BP_SYST 118; BP_DIAS 58; BP_DIAS 64
[2020-11-02] MEDS: SODIUM CHLORIDE 0.9% 1000ML 1,000 ML IV SCH ×2 (13:53→16:45)
[2020-11-02 15:22] VITALS: BP 124/67
[2020-11-02] MEDS: TRAMADOL HCL 50 MG TAB PO PRN ×2 (17:36→23:36)
[2020-11-02 20:00] VITALS: BP 128/68
[2020-11-03] VITALS (7 sets, daily range): BP systolic 122–145; BP diastolic 75–89
[2020-11-03] MEDS: SODIUM CHLORIDE 0.9% 1000ML 1,000 ML IV SCH ×3 (00:18→23:01)
[2020-11-03] MEDS: PROMETHAZINE 12.5MG/ NACL 0.9% 12.5 MG/50 ML BAG IV PRN (03:52)
[2020-11-03] MEDS: TRAMADOL HCL 50 MG TAB PO PRN ×2 (03:52→21:06)
[2020-11-03 05:50] LABS: BASOPHILS # (AUTO) 0.1 (0.0-0.1); BASOPHILS % 1.2 % (0.0-1.0); EOSINOPHILS % 0.2 % (0.0-6.0); HEMATOCRIT 36.8 % (34.2-44.1); HEMOGLOBIN 11.8 g/dL (12.0-16.0); LYMPHOCYTES # (AUTO) 0.7 (1.0-3.2); MEAN CORPUSCULAR HEMOGLOBIN 28.2 pg (28-32); MEAN CORPUSCULAR HGB CONC 32.1 g/dL (31-35); MEAN CORPUSCULAR VOLUME 87.8 fL (81-99); MONOCYTES # (AUTO) 0.4 (0.2-0.8); MONOCYTES % 8.2 % (4.4-11.3); NEUTROPHILS # (AUTO) 3.7 (2.1-6.9); NEUTROPHILS % 71.2 % (38.7-80.0); PLATELET COUNT 235 x10e3/uL (140-360); RED BLOOD COUNT 4.19 x10e6/uL (3.6-5.1); RED CELL DISTRIBUTION WIDTH 17.2 % (11.7-14.4)
[2020-11-03] MEDS: LEVOTHYROXINE SODIUM 75 MCG TAB PO SCH (06:00)
[2020-11-03 06:05] LABS: BLOOD UREA NITROGEN < 5 mg/dL (7-26); CALCIUM 7.3 mg/dL (8.4-10.2); CARBON DIOXIDE 20 mmol/L (22-29); CHLORIDE 108 mmol/L (98-107); EST GLOMERULAR FILTRATION RATE > 60 ML/MIN (60-); GLUCOSE 112 mg/dL (74-118); SODIUM 141 mmol/L (136-145)
[2020-11-03 06:06] LABS: BUN/CREATININE RATIO 6 (6-25)
[2020-11-03] MEDS ORDERED: MAGNESIUM HYDROXIDE 30 ML UDC PO ONE (08:00)
[2020-11-03] MEDS ORDERED: BISACODYL 5 MG TAB EC PO ONE (08:00)
[2020-11-03] MEDS: PROMETHAZINE 25MG/ NS 50ML (IV) IV PRN ×2 (08:31→21:06)
[2020-11-03] MEDS ORDERED: SODIUM CHLORIDE 0.9% 50ML 50 ML ONE (10:08)
[2020-11-03] MEDS ORDERED: DIATRIZOATE MEGL/DIATRIZOA SOD 30 ML BTL PO ONE (10:08)
[2020-11-03] MEDS ORDERED: IOPAMIDOL 370 MG/ML 200 ML INFUS..BTL INJ ONE (10:08)
[2020-11-03] MEDS: APIXAB 2.5 MG TABLET PO SCH ×2 (10:49→16:37)
[2020-11-03] MEDS: METOPROLOL SUCCINATE 25 MG TAB XL PO SCH ×2 (10:49→16:38)
[2020-11-03] MEDS: CEFEPIME HCL 1GM 1 GM in SODIUM CHLORIDE 0.9% 50ML 50 ML IV SCH ×2 (11:08→20:00)
[2020-11-03] MEDS: PANTOPRAZOLE 40 MG 10ML VIAL IV SCH ×2 (11:08→16:37)
[2020-11-03] MEDS ORDERED: METOPROLOL SUCCINATE 25 MG TAB XL PO ONE (19:45)
[2020-11-04] VITALS (7 sets, daily range): BP systolic 93–151; BP diastolic 69–91
[2020-11-04 05:47] LABS: BASOPHILS # (AUTO) 0.1 (0.0-0.1); EOSINOPHILS % 0.6 % (0.0-6.0); HEMATOCRIT 38.1 % (34.2-44.1); HEMOGLOBIN 12.4 g/dL (12.0-16.0); LYMPHOCYTES # (AUTO) 0.8 (1.0-3.2); LYMPHOCYTES % 10.9 % (18.0-39.1); MEAN CORPUSCULAR HEMOGLOBIN 28.2 pg (28-32); MEAN CORPUSCULAR HGB CONC 32.5 g/dL (31-35); MEAN CORPUSCULAR VOLUME 86.6 fL (81-99); MONOCYTES # (AUTO) 0.6 (0.2-0.8); MONOCYTES % 7.9 % (4.4-11.3); NEUTROPHILS # (AUTO) 5.4 (2.1-6.9); PLATELET COUNT 263 x10e3/uL (140-360); RED CELL DISTRIBUTION WIDTH 17.2 % (11.7-14.4)
[2020-11-04] MEDS: LEVOTHYROXINE SODIUM 75 MCG TAB PO SCH (06:00)
[2020-11-04 06:25] LABS: ALANINE AMINOTRANSFERASE 23 IU/L (0-55); ALBUMIN 2.4 g/dL (3.5-5.0); ALKALINE PHOSPHATASE 122 IU/L (40-150); ANION GAP 15.8 mmol/L (8-16); BLOOD UREA NITROGEN < 5 mg/dL (7-26); CALCIUM 7.5 mg/dL (8.4-10.2); CARBON DIOXIDE 22 mmol/L (22-29); CHLORIDE 105 mmol/L (98-107); CREATININE, SERUM 0.75 mg/dL (0.57-1.11); EST GLOMERULAR FILTRATION RATE > 60 ML/MIN (60-); GLUCOSE 107 mg/dL (74-118); POTASSIUM 3.8 mmol/L (3.5-5.1); SODIUM 139 mmol/L (136-145)
[2020-11-04 06:27] LABS: BUN/CREATININE RATIO 7 (6-25)
[2020-11-04] MEDS: APIXAB 2.5 MG TABLET PO SCH ×2 (09:31→17:27)
[2020-11-04] MEDS: PANTOPRAZOLE 40 MG 10ML VIAL IV SCH ×2 (09:31→17:27)
[2020-11-04] MEDS: CEFEPIME HCL 1GM 1 GM in SODIUM CHLORIDE 0.9% 50ML 50 ML IV SCH (09:31)
[2020-11-04] MEDS: PROMETHAZINE 25MG/ NS 50ML (IV) IV PRN ×3 (09:32→21:40)
[2020-11-04] MEDS: BALSAM PERU/CASTOR OIL 60 GM OINT...G. TP SCH (09:32)
[2020-11-04] MEDS: METOPROLOL SUCCINATE 25 MG TAB XL PO SCH ×2 (09:32→17:29)
[2020-11-04] MEDS ORDERED: CEFTRIAXONE SOD 1 GM/50 ML BAG IV SCH (10:00)
[2020-11-04] MEDS ORDERED: MAGNESIUM HYDROXIDE 30 ML UDC PO NR (10:15)
[2020-11-04] MEDS ORDERED: BISACODYL 10 MG SUPP PR NR (10:15)
[2020-11-04] MEDS ORDERED: BISACODYL 5 MG TAB EC PO PRN (10:15)
[2020-11-04] MEDS ORDERED: BISACODYL 5 MG TAB EC PO NR (10:15)
[2020-11-04] MEDS ORDERED: MAGNESIUM HYDROXIDE 30 ML UDC PO PRN (10:15)
[2020-11-04] MEDS: METOCLOPRAMIDE HCL 10 MG/2ML VIAL IV SCH ×4 (11:07→23:39)
[2020-11-04] MEDS: CEFTRIAXONE SOD 1 GM in SODIUM CHLORIDE 0.9% 50ML 50 ML IV SCH ×2 (12:14→20:22)
[2020-11-04] MEDS: DIGOXIN 0.125 MG TAB PO SCH (12:14)
[2020-11-04] MEDS ORDERED: METOCLOPRAMIDE HCL 10 MG/2ML VIAL ONE (13:41)
[2020-11-04] MEDS ORDERED: PROPOFOL IV EMULSION 10 MG/ML 20 ML VIAL ONE (13:41)
[2020-11-04] MEDS: SODIUM CHLORIDE 0.9% 1000ML 1,000 ML IV SCH (17:27)
[2020-11-05] VITALS (7 sets, daily range): BP systolic 110–154; BP diastolic 76–93
[2020-11-05] MEDS: SODIUM CHLORIDE 0.9% 1000ML 1,000 ML IV SCH (01:41)
[2020-11-05] MEDS: PROMETHAZINE 25MG/ NS 50ML (IV) IV PRN (02:50)
[2020-11-05 05:35] LABS: BASOPHILS # (AUTO) 0.1 (0.0-0.1); BASOPHILS % 0.8 % (0.0-1.0); EOSINOPHILS % 0.4 % (0.0-6.0); HEMATOCRIT 38.7 % (34.2-44.1); HEMOGLOBIN 12.4 g/dL (12.0-16.0); LYMPHOCYTES % 12.6 % (18.0-39.1); MEAN CORPUSCULAR HEMOGLOBIN 27.7 pg (28-32); MEAN CORPUSCULAR VOLUME 86.4 fL (81-99); MONOCYTES # (AUTO) 0.8 (0.2-0.8); MONOCYTES % 10.1 % (4.4-11.3); NEUTROPHILS # (AUTO) 5.6 (2.1-6.9); PLATELET COUNT 280 x10e3/uL (140-360); RED BLOOD COUNT 4.48 x10e6/uL (3.6-5.1); RED CELL DISTRIBUTION WIDTH 17.2 % (11.7-14.4)
[2020-11-05 05:59] LABS: ALANINE AMINOTRANSFERASE 22 IU/L (0-55); ALBUMIN 2.4 g/dL (3.5-5.0); ALBUMIN/GLOBULIN RATIO 0.9 (0.8-2.0); ALKALINE PHOSPHATASE 127 IU/L (40-150); ANION GAP 17.9 mmol/L (8-16); BLOOD UREA NITROGEN < 5 mg/dL (7-26); CALCIUM 7.5 mg/dL (8.4-10.2); CARBON DIOXIDE 20 mmol/L (22-29); CHLORIDE 105 mmol/L (98-107); CREATININE, SERUM 0.71 mg/dL (0.57-1.11); EST GLOMERULAR FILTRATION RATE > 60 ML/MIN (60-); GLUCOSE 102 mg/dL (74-118); POTASSIUM 3.9 mmol/L (3.5-5.1); SODIUM 139 mmol/L (136-145)
[2020-11-05 06:01] LABS: BUN/CREATININE RATIO 7 (6-25)
[2020-11-05] MEDS: METOCLOPRAMIDE HCL 10 MG/2ML VIAL IV SCH ×4 (06:02→23:59)
[2020-11-05] MEDS: LEVOTHYROXINE SODIUM 75 MCG TAB PO SCH (06:02)
[2020-11-05] MEDS: PANTOPRAZOLE 40 MG 10ML VIAL IV SCH ×2 (08:14→17:45)
[2020-11-05] MEDS: BALSAM PERU/CASTOR OIL 60 GM OINT...G. TP SCH (08:14)
[2020-11-05] MEDS: METOPROLOL SUCCINATE 25 MG TAB XL PO SCH ×2 (08:14→17:46)
[2020-11-05] MEDS: CEFTRIAXONE SOD 1 GM in SODIUM CHLORIDE 0.9% 50ML 50 ML IV SCH ×2 (08:14→21:39)
[2020-11-05] MEDS: APIXAB 2.5 MG TABLET PO SCH ×2 (08:14→17:45)
[2020-11-05] MEDS: DIGOXIN 0.125 MG TAB PO SCH (08:14)
[2020-11-05] MEDS ORDERED: BISACODYL 10 MG SUPP PR NR (10:15)
[2020-11-05] MEDS: SODIUM CHLORIDE 0.9% 1000ML 2,000 ML IV SCH ×2 (14:32→20:27)
[2020-11-05] MEDS: MELATONIN 5 MG TABLET PO SCH (23:59)
[2020-11-06] VITALS: BP 156/99
[2020-11-06] MEDS: SODIUM CHLORIDE 0.9% 1000ML 1,000 ML IV SCH ×5 (01:52→21:55)
[2020-11-06 04:00] VITALS: BP 120/89
[2020-11-06 06:02] LABS: BASOPHILS # (AUTO) 0.1 (0.0-0.1); EOSINOPHILS # (AUTO) 0.1 (0.0-0.4); EOSINOPHILS % 2.2 % (0.0-6.0); HEMATOCRIT 34.2 % (34.2-44.1); HEMOGLOBIN 11.2 g/dL (12.0-16.0); LYMPHOCYTES # (AUTO) 1.2 (1.0-3.2); LYMPHOCYTES % 19.3 % (18.0-39.1); MEAN CORPUSCULAR HEMOGLOBIN 27.6 pg (28-32); MEAN CORPUSCULAR HGB CONC 32.7 g/dL (31-35); MEAN CORPUSCULAR VOLUME 84.2 fL (81-99); MONOCYTES # (AUTO) 0.7 (0.2-0.8); MONOCYTES % 11.8 % (4.4-11.3); NEUTROPHILS # (AUTO) 3.7 (2.1-6.9); NEUTROPHILS % 60.6 % (38.7-80.0); PLATELET COUNT 232 x10e3/uL (140-360); RED BLOOD COUNT 4.06 x10e6/uL (3.6-5.1); RED CELL DISTRIBUTION WIDTH 17.2 % (11.7-14.4)
[2020-11-06 06:24] LABS: ALANINE AMINOTRANSFERASE 22 IU/L (0-55); ALBUMIN 2.2 g/dL (3.5-5.0); ALBUMIN/GLOBULIN RATIO 0.9 (0.8-2.0); ALKALINE PHOSPHATASE 112 IU/L (40-150); ANION GAP 17.8 mmol/L (8-16); BLOOD UREA NITROGEN < 5 mg/dL (7-26); CARBON DIOXIDE 19 mmol/L (22-29); CHLORIDE 107 mmol/L (98-107); CREATININE, SERUM 0.65 mg/dL (0.57-1.11); EST GLOMERULAR FILTRATION RATE > 60 ML/MIN (60-); GLUCOSE 89 mg/dL (74-118); MAGNESIUM 1.4 MG/DL (1.3-2.1); PHOSPHORUS 1.4 MG/DL (2.3-4.7); SODIUM 141 mmol/L (136-145)
[2020-11-06 06:34] LABS: BUN/CREATININE RATIO 8 (6-25)
[2020-11-06 06:35] LABS: POTASSIUM 2.8 mmol/L (3.5-5.1)
[2020-11-06] MEDS: METOCLOPRAMIDE HCL 10 MG/2ML VIAL IV SCH ×3 (06:40→17:43)
[2020-11-06] MEDS: LEVOTHYROXINE SODIUM 75 MCG TAB PO SCH (06:40)
[2020-11-06] MEDS ORDERED: POTASSIUM CHLORIDE 20 MEQ TAB CR PO STA (07:41)
[2020-11-06] MEDS: PANTOPRAZOLE 40 MG 10ML VIAL IV SCH ×2 (09:12→17:40)
[2020-11-06] MEDS: APIXAB 2.5 MG TABLET PO SCH ×2 (09:13→17:40)
[2020-11-06] MEDS: METOPROLOL SUCCINATE 25 MG TAB XL PO SCH ×2 (09:13→17:43)
[2020-11-06] MEDS: BALSAM PERU/CASTOR OIL 60 GM OINT...G. TP SCH (09:13)
[2020-11-06] MEDS: CEFTRIAXONE SOD 1 GM in SODIUM CHLORIDE 0.9% 50ML 50 ML IV SCH (09:13)
[2020-11-06] MEDS ORDERED: POTASSIUM CHLORIDE 10MEQ/100ML 400 ML IV ONE (11:30)
[2020-11-06] MEDS ORDERED: OYST-CAL-D 500MG TABLET PO NR (11:30)
[2020-11-06] MEDS ORDERED: MAGNESIUM SULF 1GRAM/DEXTROSE 100 ML IV ONE (11:30)
[2020-11-06] MEDS ORDERED: POTASSIUM PHOSPHATE 30 MM in SODIUM CHLORIDE 0.9% 250ML 250 ML IV ONE (11:30)
[2020-11-06 11:53] VITALS: BP 115/76
[2020-11-06 12:12] VITALS: BP 148/81
[2020-11-06 16:07] VITALS: BP 143/91
[2020-11-06 20:00] VITALS: BP 130/81
[2020-11-06] MEDS: MELATONIN 5 MG TABLET PO SCH (21:00)
[2020-11-07] VITALS: BP 132/84
[2020-11-07] MEDS: CEFTRIAXONE SOD 1 GM in SODIUM CHLORIDE 0.9% 50ML 50 ML IV SCH ×2 (00:27→08:24)
[2020-11-07] MEDS: METOCLOPRAMIDE HCL 10 MG/2ML VIAL IV SCH ×2 (00:30→06:00)
[2020-11-07 04:00] VITALS: BP 118/73
[2020-11-07] MEDS: LEVOTHYROXINE SODIUM 75 MCG TAB PO SCH (05:37)
[2020-11-07] MEDS: SODIUM CHLORIDE 0.9% 1000ML 1,000 ML IV SCH (05:47)
[2020-11-07 06:43] LABS: BASOPHILS # (AUTO) 0.1 (0.0-0.1); EOSINOPHILS # (AUTO) 0.1 (0.0-0.4); EOSINOPHILS % 2.4 % (0.0-6.0); HEMATOCRIT 33.5 % (34.2-44.1); HEMOGLOBIN 10.9 g/dL (12.0-16.0); LYMPHOCYTES # (AUTO) 1.3 (1.0-3.2); LYMPHOCYTES % 21.2 % (18.0-39.1); MEAN CORPUSCULAR HEMOGLOBIN 27.9 pg (28-32); MEAN CORPUSCULAR HGB CONC 32.5 g/dL (31-35); MEAN CORPUSCULAR VOLUME 85.7 fL (81-99); MONOCYTES # (AUTO) 0.7 (0.2-0.8); NEUTROPHILS # (AUTO) 3.5 (2.1-6.9); NEUTROPHILS % 59.8 % (38.7-80.0); PLATELET COUNT 213 x10e3/uL (140-360); RED BLOOD COUNT 3.91 x10e6/uL (3.6-5.1); RED CELL DISTRIBUTION WIDTH 17.6 % (11.7-14.4)
[2020-11-07 07:26] LABS: ALANINE AMINOTRANSFERASE 22 IU/L (0-55); ALBUMIN 2.2 g/dL (3.5-5.0); ALBUMIN/GLOBULIN RATIO 0.9 (0.8-2.0); ALKALINE PHOSPHATASE 112 IU/L (40-150); ANION GAP 16.7 mmol/L (8-16); BLOOD UREA NITROGEN < 5 mg/dL (7-26); BUN/CREATININE RATIO 8 (6-25); CARBON DIOXIDE 19 mmol/L (22-29); CHLORIDE 106 mmol/L (98-107); CREATININE, SERUM 0.65 mg/dL (0.57-1.11); EST GLOMERULAR FILTRATION RATE > 60 ML/MIN (60-); GLUCOSE 80 mg/dL (74-118); MAGNESIUM 1.6 MG/DL (1.3-2.1); PHOSPHORUS 1.8 MG/DL (2.3-4.7); POTASSIUM 3.7 mmol/L (3.5-5.1); SODIUM 138 mmol/L (136-145)
[2020-11-07 07:36] VITALS: BP 145/85
[2020-11-07 07:37] VITALS: BP 145/85
[2020-11-07] MEDS: PANTOPRAZOLE 40 MG 10ML VIAL IV SCH (08:24)
[2020-11-07] MEDS: APIXAB 2.5 MG TABLET PO SCH (08:24)
[2020-11-07] MEDS: METOPROLOL SUCCINATE 25 MG TAB XL PO SCH (08:24)
[2020-11-07] MEDS: BALSAM PERU/CASTOR OIL 60 GM OINT...G. TP SCH (08:24)
[2020-11-07] MEDS ORDERED: ULTRAM50 MG PO (09:44)
[2020-11-07 16:00] VITALS: BP 139/84
== END 2020-11-07 11:54 | disposition home or self-care (01) | DRG 871 ==
LOC: MED/SURG 16:20
PROVIDERS: ADMIT Internal Medicine; ATTEND Internal Medicine
PROC: 0D768ZZ Dilation of Stomach, Via Natural or Artificial Opening Endoscopic (ICD-10-PCS; principal; 2020-11-04 17:00)
DX: A41.9 Sepsis, unspecified organism (principal); E43 Unspecified severe protein-calorie malnutrition; N39.0 Urinary tract infection, site not specified; A04.72 Enterocolitis due to Clostridium difficile, not specified as recurrent; N17.9 Acute kidney failure, unspecified; K95.89 Other complications of other bariatric procedure; Z86.718 Personal history of other venous thrombosis and embolism; Z79.01 Long term (current) use of anticoagulants; L72.0 Epidermal cyst; Z68.32 Body mass index [BMI] 32.0-32.9, adult; K76.0 Fatty (change of) liver, not elsewhere classified; T85.858A Stenosis due to other internal prosthetic devices, implants and grafts, initial encounter; Z98.84 Bariatric surgery status; E78.5 Hyperlipidemia, unspecified; E11.9 Type 2 diabetes mellitus without complications; E03.9 Hypothyroidism, unspecified; E11.43 Type 2 diabetes mellitus with diabetic autonomic (poly)neuropathy; K31.84 Gastroparesis; Z20.822 Contact with and (suspected) exposure to COVID-19
CPT/HCPCS: 36415; 43450; 71045; 74177; 80048; 80053; 80162; 81001; 82150; 83036; 83605; 83690; 83735; 84100; 84132; 84443; 85025; 87040; 87086; 87186; 87493; 93005; 96361; 97139; 99251; J0692; J0696; J2405; J2550; J2765; J3475; J3480; J7030; J7050; Q9967; U0002

== ENCOUNTER 2020-11-22 15:25 | Inpatient (IN) | payer OTHER ==
[~2020-11-22] VITALS: Ht 167.6 cm; Wt 99.8 kg
[2020-11-22] VITALS (7 sets, daily range): BP systolic 112–145; BP diastolic 68–97
[~2020-11-22 15:25] MED LIST changes: +ULTRAM50 MG PO
[2020-11-22] MEDS ORDERED: PANTOPRAZOLE 40 MG 10ML VIAL IV STA (15:41)
[2020-11-22] MEDS ORDERED: SODIUM CHLORIDE 0.9% 1000ML 1,000 ML IV STA ×2 (15:41→16:44)
[2020-11-22] MEDS ORDERED: ONDANSETRON HCL INJ 2MG/ML 2ML 2 MG/ML VIAL IV STA (15:41)
[2020-11-22] MEDS ORDERED: SODIUM CHLORIDE 0.9% 1000ML 2,000 ML ONE (15:52)
[2020-11-22] MEDS ORDERED: PIPERACILLIN/TAZOBAC 3.375 GM in SODIUM CHLORIDE 0.9% 50ML 50 ML IV ONE (16:00)
[2020-11-22 16:27] LABS: INR 0.93; PROTHROMBIN TIME 13.1 seconds (11.9-14.5)
[2020-11-22 16:28] LABS: PARTIAL THROMBOPLASTIN TIME 26.9 seconds (23.8-35.5)
[2020-11-22 16:34] LABS: ALANINE AMINOTRANSFERASE 22 IU/L (0-55); ALBUMIN 2.6 g/dL (3.5-5.0); ALBUMIN/GLOBULIN RATIO 0.8 (0.8-2.0); ALKALINE PHOSPHATASE 159 IU/L (40-150); AMYLASE 27 U/L (25-125); ANION GAP 20.6 mmol/L (8-16); BASOPHILS # (AUTO) 0.1 (0.0-0.1); BASOPHILS % 0.8 % (0.0-1.0); BLOOD UREA NITROGEN 8 mg/dL (7-26); BUN/CREATININE RATIO 11 (6-25); CALCIUM 8.1 mg/dL (8.4-10.2); CARBON DIOXIDE 20 mmol/L (22-29); CHLORIDE 101 mmol/L (98-107); CREATINE KINASE 64 IU/L (29-168); CREATININE, SERUM 0.75 mg/dL (0.57-1.11); EOSINOPHILS % 0.4 % (0.0-6.0); EST GLOMERULAR FILTRATION RATE > 60 ML/MIN (60-); GLUCOSE 134 mg/dL (74-118); HEMOGLOBIN 11.7 g/dL (12.0-16.0); LIPASE 23 U/L (8-78); LYMPHOCYTES % 18.8 % (18.0-39.1); MAGNESIUM 1.7 MG/DL (1.3-2.1); MEAN CORPUSCULAR HEMOGLOBIN 27.3 pg (28-32); MEAN CORPUSCULAR HGB CONC 33.4 g/dL (31-35); MEAN CORPUSCULAR VOLUME 81.8 fL (81-99); MONOCYTES # (AUTO) 0.8 (0.2-0.8); NEUTROPHILS # (AUTO) 7.4 (2.1-6.9); NEUTROPHILS % 69.1 % (38.7-80.0); PLATELET COUNT 435 x10e3/uL (140-360); POTASSIUM 3.6 mmol/L (3.5-5.1); RED BLOOD COUNT 4.28 x10e6/uL (3.6-5.1); RED CELL DISTRIBUTION WIDTH 17.7 % (11.7-14.4); SODIUM 138 mmol/L (136-145)
[2020-11-22 16:40] LABS: B-TYPE NATRIURETIC PEPTIDE2 29.3 pg/mL (0-100)
[2020-11-22] MEDS ORDERED: SODIUM CHLORIDE 0.9% 1000ML 1,000 ML IV SCH ×2 (17:15→17:30)
[2020-11-22] MEDS ORDERED: ONDANSETRON HCL INJ 2MG/ML 2ML 2 MG/ML VIAL IV PRN (17:15)
[2020-11-22 17:29] LABS: CLARITY,URINE SL CLOUDY (CLEAR); COLOR,URINE YELLOW (YELLOW)
[2020-11-22] MEDS ORDERED: CEFEPIME HCL 1 GM VIAL IV SCH (17:30)
[2020-11-22 17:32] LABS: KETONES,URINE TRACE (NEGATIVE); LEUKOCYTE ESTERASE ,URINE NEGATIVE (NEGATIVE); NITRITE,URINE NEGATIVE (NEGATIVE); PROTEIN,URINE DIPSTICK 2+ (NEGATIVE)
[2020-11-22 17:33] LABS: URINE UROBILINOGEN 0.2 mg/dL (0.2 - 1)
[2020-11-22 17:45] LABS: BACTERIA,URINE MODERATE /HPF
[2020-11-22] MEDS ORDERED: METOCLOPRAMIDE H5 MG (17:45)
[2020-11-22] MEDS ORDERED: SODIUM CHLORIDE 0.9% 1000ML 1,000 ML IV ONE (17:45)
[2020-11-22 17:46] LABS: EPITHELIAL CELLS,URINE FEW /LPF; MUCUS,URINE MANY (RARE)
[2020-11-22 17:47] LABS: TRANSITIONAL EPI CELLS,URINE MODERATE
[2020-11-22] MEDS: VANCOMYCIN 1GM/NS 250 ML 250 ML IV SCH (18:03)
[2020-11-22] MEDS ORDERED: SODIUM CHLORIDE 0.9% 50ML 0 ML ONE (18:27)
[2020-11-22] MEDS ORDERED: IOPAMIDOL 370 MG/ML 200 ML INFUS..BTL INJ ONE (18:27)
[2020-11-22] MEDS ORDERED: ZOLPIDEM TARTRATE 5 MG TAB PO PRN (18:30)
[2020-11-22] MEDS: CEFEPIME HCL 1GM 1 GM in SODIUM CHLORIDE 0.9% 50ML 50 ML IV SCH (20:20)
[2020-11-22] MEDS ORDERED: CEFEPIME HCL 1 GM VIAL ONE (20:20)
[2020-11-22] MEDS ORDERED: SODIUM CHLORIDE 0.9% 100 ML ONE (20:21)
[2020-11-22] MEDS: LACTATED RINGER'S 1,000 ML INJ SCH (20:52)
[2020-11-22] MEDS: PROMETHAZINE 12.5MG/ NACL 0.9% 12.5 MG/50 ML BAG IV PRN (22:56)
[2020-11-22] MEDS: HYDROMORPHONE 1MG/1ML INJ IV PRN (22:56)
[2020-11-23] VITALS (27 sets, daily range): BP systolic 91–131; BP diastolic 50–71
[2020-11-23] MEDS: METOCLOPRAMIDE HCL 10 MG/2ML VIAL IV SCH ×4 (00:26→17:03)
[2020-11-23] MEDS: PANTOPRAZOLE INJ 40 MG in SODIUM CHLORIDE 0.9% 50ML 50 ML IV SCH ×5 (00:26→19:00)
[2020-11-23] MEDS: HYDROMORPHONE 1MG/1ML INJ IV PRN ×5 (03:48→21:58)
[2020-11-23] MEDS: LACTATED RINGER'S 1,000 ML INJ SCH (04:30)
[2020-11-23] MEDS ORDERED: SODIUM CHLORIDE 0.9% 50ML 50 ML ONE ×3 (05:49→20:12)
[2020-11-23] MEDS ORDERED: CEFEPIME HCL 1 GM VIAL ONE ×3 (05:49→20:11)
[2020-11-23] MEDS ORDERED: LEVOTHYROXINE SODIUM 75 MCG TAB PO SCH (06:00)
[2020-11-23] MEDS: VANCOMYCIN 1GM/NS 250 ML 250 ML IV SCH ×2 (06:12→17:03)
[2020-11-23] MEDS: LEVOTHYROXINE SODIUM 75 MCG TAB PO SCH (06:12)
[2020-11-23 07:58] LABS: CREATINE KINASE MB 0.5 ng/mL (0-5.0)
[2020-11-23] MEDS: CEFEPIME HCL 1GM 1 GM in SODIUM CHLORIDE 0.9% 50ML 50 ML IV SCH ×2 (07:59→20:11)
[2020-11-23] MEDS ORDERED: METOCLOPRAMIDE HCL 10 MG/2ML VIAL IV SCH (08:00)
[2020-11-23 08:13] LABS: ALANINE AMINOTRANSFERASE 17 IU/L (0-55); ALBUMIN 1.9 g/dL (3.5-5.0); ALBUMIN/GLOBULIN RATIO 0.9 (0.8-2.0); ALKALINE PHOSPHATASE 106 IU/L (40-150); BLOOD UREA NITROGEN 7 mg/dL (7-26); BUN/CREATININE RATIO 11 (6-25); CARBON DIOXIDE 18 mmol/L (22-29); CHLORIDE 110 mmol/L (98-107); CREATININE, SERUM 0.61 mg/dL (0.57-1.11); EST GLOMERULAR FILTRATION RATE > 60 ML/MIN (60-); GLUCOSE 98 mg/dL (74-118); SODIUM 139 mmol/L (136-145)
[2020-11-23 08:20] LABS: CALCIUM 6.7 mg/dL (8.4-10.2)
[2020-11-23] MEDS: THIAMINE HCL INJ 100 MG/ML 2ML VIAL IV SCH (08:29)
[2020-11-23] MEDS: CYANOCOBALAMIN 1,000 MCG TAB PO SCH (08:29)
[2020-11-23] MEDS: PROMETHAZINE 12.5MG/ NACL 0.9% 12.5 MG/50 ML BAG IV PRN ×2 (08:42→17:46)
[2020-11-23] MEDS: POTASSIUM CHLORIDE 10MEQ EA PO SCH ×3 (08:42→14:02)
[2020-11-23] MEDS ORDERED: CALCIUM GLUCONATE 10% INJ 4.65 MEQ in SODIUM CHLORIDE 0.9% 50ML 50 ML IV ONE (08:45)
[2020-11-23] MEDS ORDERED: PANTOPRAZOLE 40 MG 10ML VIAL IV SCH (09:00)
[2020-11-23] MEDS ORDERED: APIXAB 2.5 MG TABLET PO SCH (09:00)
[2020-11-23 09:15] LABS: BASOPHILS % 0.4 % (0.0-1.0); EOSINOPHILS % 0.2 % (0.0-6.0); HEMATOCRIT 24.3 % (34.2-44.1); HEMOGLOBIN 8.1 g/dL (12.0-16.0); LYMPHOCYTES # (AUTO) 0.9 (1.0-3.2); LYMPHOCYTES % 15.8 % (18.0-39.1); MEAN CORPUSCULAR HEMOGLOBIN 27.5 pg (28-32); MEAN CORPUSCULAR HGB CONC 33.3 g/dL (31-35); MEAN CORPUSCULAR VOLUME 82.4 fL (81-99); MONOCYTES # (AUTO) 0.5 (0.2-0.8); MONOCYTES % 9.1 % (4.4-11.3); NEUTROPHILS # (AUTO) 3.8 (2.1-6.9); NEUTROPHILS % 70.2 % (38.7-80.0); PLATELET COUNT 234 x10e3/uL (140-360); RED BLOOD COUNT 2.95 x10e6/uL (3.6-5.1); RED CELL DISTRIBUTION WIDTH 17.8 % (11.7-14.4)
[2020-11-23] MEDS: ONDANSETRON HCL INJ 2MG/ML 2ML 2 MG/ML VIAL IV PRN (12:22)
[2020-11-23] MEDS ORDERED: SODIUM CHLORIDE 0.9% 500ML 500 ML IV ONE (13:30)
[2020-11-23 15:17] LABS: CREATINE KINASE MB 0.5 ng/mL (0-5.0)
[2020-11-23] MEDS: SODIUM CHLORIDE 0.9% 1000ML 1,000 ML IV SCH (18:47)
[2020-11-24] VITALS (25 sets, daily range): BP systolic 103–135; BP diastolic 55–99
[2020-11-24] MEDS: METOCLOPRAMIDE HCL 10 MG/2ML VIAL IV SCH ×4 (00:08→17:18)
[2020-11-24] MEDS: PANTOPRAZOLE INJ 40 MG in SODIUM CHLORIDE 0.9% 50ML 50 ML IV SCH ×5 (00:08→21:30)
[2020-11-24] MEDS: HYDROMORPHONE 1MG/1ML INJ IV PRN ×6 (02:44→22:51)
[2020-11-24] MEDS: SODIUM CHLORIDE 0.9% 1000ML 1,000 ML IV SCH (04:45)
[2020-11-24] MEDS: VANCOMYCIN 1GM/NS 250 ML 250 ML IV SCH (05:55)
[2020-11-24] MEDS: LEVOTHYROXINE SODIUM 75 MCG TAB PO SCH (05:55)
[2020-11-24 06:00] LABS: BASOPHILS # (AUTO) 0.1 (0.0-0.1); BASOPHILS % 0.9 % (0.0-1.0); EOSINOPHILS # (AUTO) 0.1 (0.0-0.4); EOSINOPHILS % 1.4 % (0.0-6.0); HEMATOCRIT 24.1 % (34.2-44.1); HEMOGLOBIN 7.7 g/dL (12.0-16.0); LYMPHOCYTES # (AUTO) 1.3 (1.0-3.2); LYMPHOCYTES % 20.3 % (18.0-39.1); MEAN CORPUSCULAR HEMOGLOBIN 26.9 pg (28-32); MEAN CORPUSCULAR VOLUME 84.3 fL (81-99); MONOCYTES # (AUTO) 0.7 (0.2-0.8); MONOCYTES % 11.1 % (4.4-11.3); NEUTROPHILS % 63.2 % (38.7-80.0); PLATELET COUNT 302 x10e3/uL (140-360); RED BLOOD COUNT 2.86 x10e6/uL (3.6-5.1); RED CELL DISTRIBUTION WIDTH 18.6 % (11.7-14.4)
[2020-11-24 06:25] LABS: ANION GAP 13.3 mmol/L (8-16); BLOOD UREA NITROGEN < 5 mg/dL (7-26); CALCIUM 7.1 mg/dL (8.4-10.2); CARBON DIOXIDE 20 mmol/L (22-29); CHLORIDE 114 mmol/L (98-107); CREATININE, SERUM 0.67 mg/dL (0.57-1.11); EST GLOMERULAR FILTRATION RATE > 60 ML/MIN (60-); GLUCOSE 93 mg/dL (74-118); POTASSIUM 4.3 mmol/L (3.5-5.1); SODIUM 143 mmol/L (136-145)
[2020-11-24 06:29] LABS: % IRON SATURATION 81 % (15-50); BUN/CREATININE RATIO 7 (6-25); IRON 97 ug/dL (50-170); TOTAL IRON BINDING CAPACITY 120 ug/dL (261-478); TRANSFERRIN 86 mg/dL (180-382)
[2020-11-24] MEDS: CYANOCOBALAMIN 1,000 MCG TAB PO SCH (08:02)
[2020-11-24] MEDS: METOPROLOL SUCCINATE 25 MG TAB XL PO SCH ×2 (08:02→17:18)
[2020-11-24] MEDS: CEFEPIME HCL 1GM 1 GM in SODIUM CHLORIDE 0.9% 50ML 50 ML IV SCH ×2 (08:02→20:40)
[2020-11-24] MEDS: THIAMINE HCL INJ 100 MG/ML 2ML VIAL IV SCH (08:02)
[2020-11-24] MEDS ORDERED: CEFEPIME HCL 1 GM VIAL ONE ×2 (08:03→21:11)
[2020-11-24] MEDS ORDERED: FUROSEMIDE INJ 10 MG/ML 4 ML VIAL IV ONE (08:15)
[2020-11-24] MEDS: PROMETHAZINE 12.5MG/ NACL 0.9% 12.5 MG/50 ML BAG IV PRN (13:00)
[2020-11-24] MEDS ORDERED: SODIUM CHLORIDE 0.9% 50ML 50 ML ONE ×2 (21:12→21:35)
[2020-11-24] MEDS ORDERED: IOPAMIDOL 370 MG/ML 200 ML INFUS..BTL INJ ONE (21:36)
[2020-11-25] VITALS (21 sets, daily range): BP systolic 88–139; BP diastolic 45–97
[2020-11-25] MEDS: METOCLOPRAMIDE HCL 10 MG/2ML VIAL IV SCH ×4 (00:10→17:40)
[2020-11-25] MEDS: PANTOPRAZOLE INJ 40 MG in SODIUM CHLORIDE 0.9% 50ML 50 ML IV SCH ×4 (02:30→20:05)
[2020-11-25 04:52] LABS: BASOPHILS % 0.8 % (0.0-1.0); EOSINOPHILS # (AUTO) 0.1 (0.0-0.4); EOSINOPHILS % 1.8 % (0.0-6.0); LYMPHOCYTES # (AUTO) 0.9 (1.0-3.2); LYMPHOCYTES % 19.3 % (18.0-39.1); MEAN CORPUSCULAR HGB CONC 32.5 g/dL (31-35); MEAN CORPUSCULAR VOLUME 82.8 fL (81-99); MONOCYTES # (AUTO) 0.6 (0.2-0.8); MONOCYTES % 13.1 % (4.4-11.3); NEUTROPHILS % 61.3 % (38.7-80.0); PLATELET COUNT 261 x10e3/uL (140-360); RED BLOOD COUNT 2.56 x10e6/uL (3.6-5.1); RED CELL DISTRIBUTION WIDTH 18.5 % (11.7-14.4)
[2020-11-25 04:54] LABS: HEMATOCRIT 21.2 % (34.2-44.1); HEMOGLOBIN 6.9 g/dL (12.0-16.0)
[2020-11-25 05:13] LABS: ALANINE AMINOTRANSFERASE 15 IU/L (0-55); ALBUMIN 1.8 g/dL (3.5-5.0); ALBUMIN/GLOBULIN RATIO 0.9 (0.8-2.0); ALKALINE PHOSPHATASE 107 IU/L (40-150); ANION GAP 13.4 mmol/L (8-16); BLOOD UREA NITROGEN < 5 mg/dL (7-26); CALCIUM 7.2 mg/dL (8.4-10.2); CARBON DIOXIDE 23 mmol/L (22-29); CHLORIDE 109 mmol/L (98-107); CREATININE, SERUM 0.68 mg/dL (0.57-1.11); EST GLOMERULAR FILTRATION RATE > 60 ML/MIN (60-); GLUCOSE 103 mg/dL (74-118); POTASSIUM 3.4 mmol/L (3.5-5.1); SODIUM 142 mmol/L (136-145)
[2020-11-25 05:17] LABS: BUN/CREATININE RATIO 7 (6-25)
[2020-11-25] MEDS ORDERED: FUROSEMIDE INJ 10 MG/ML 2 ML VIAL IV ONE (06:15)
[2020-11-25] MEDS ORDERED: POTASSIUM CHLORIDE 20 MEQ TAB CR PO ONE (06:45)
[2020-11-25] MEDS: LEVOTHYROXINE SODIUM 75 MCG TAB PO SCH (06:57)
[2020-11-25] MEDS ORDERED: SODIUM CHLORIDE 0.9% 250ML 250 ML IV SCH (07:00)
[2020-11-25] MEDS: ONDANSETRON HCL INJ 2MG/ML 2ML 2 MG/ML VIAL IV PRN ×2 (08:07→22:40)
[2020-11-25] MEDS: HYDROMORPHONE 1MG/1ML INJ IV PRN ×3 (08:07→22:40)
[2020-11-25] MEDS: CEFEPIME HCL 1GM 1 GM in SODIUM CHLORIDE 0.9% 50ML 50 ML IV SCH ×2 (08:08→20:25)
[2020-11-25 08:54] LABS: HYPOCHROMASIA SLIGHT; MICROCYTOSIS SLIGHT; PLATELET ESTIMATE ADEQUATE; PLATELET MORPHOLOGY COMMENT NORMAL; RBC MORPHOLOGY COMMENT NORMAL
[2020-11-25] MEDS: VANCOMYCIN 1GM/NS 250 ML 250 ML IV SCH (09:00)
[2020-11-25] MEDS: METOPROLOL SUCCINATE 25 MG TAB XL PO SCH ×2 (09:50→16:56)
[2020-11-25] MEDS: CYANOCOBALAMIN 1,000 MCG TAB PO SCH (09:50)
[2020-11-25] MEDS ORDERED: CEFEPIME HCL 1 GM VIAL ONE ×2 (09:50→20:27)
[2020-11-25] MEDS ORDERED: SODIUM CHLORIDE 0.9% 50ML 50 ML ONE ×2 (09:50→20:27)
[2020-11-25] MEDS ORDERED: SODIUM CHLORIDE 0.9% 250ML 250 ML ONE (18:21)
[2020-11-25] MEDS ORDERED: FUROSEMIDE INJ 10 MG/ML 2 ML VIAL ONE (22:00)
[2020-11-26] VITALS (7 sets, daily range): BP systolic 117–129; BP diastolic 66–72
[2020-11-26] MEDS: PANTOPRAZOLE INJ 40 MG in SODIUM CHLORIDE 0.9% 50ML 50 ML IV SCH ×6 (01:45→23:46)
[2020-11-26] MEDS: HYDROMORPHONE 1MG/1ML INJ IV PRN ×4 (03:32→21:43)
[2020-11-26 04:58] LABS: BASOPHILS # (AUTO) 0.1 (0.0-0.1); BASOPHILS % 0.9 % (0.0-1.0); EOSINOPHILS # (AUTO) 0.1 (0.0-0.4); EOSINOPHILS % 2.4 % (0.0-6.0); HEMATOCRIT 29.2 % (34.2-44.1); HEMOGLOBIN 9.5 g/dL (12.0-16.0); LYMPHOCYTES # (AUTO) 1.2 (1.0-3.2); LYMPHOCYTES % 21.3 % (18.0-39.1); MEAN CORPUSCULAR HEMOGLOBIN 26.5 pg (28-32); MEAN CORPUSCULAR HGB CONC 32.5 g/dL (31-35); MEAN CORPUSCULAR VOLUME 81.3 fL (81-99); MONOCYTES # (AUTO) 0.7 (0.2-0.8); MONOCYTES % 12.6 % (4.4-11.3); NEUTROPHILS # (AUTO) 3.1 (2.1-6.9); NEUTROPHILS % 57.2 % (38.7-80.0); PLATELET COUNT 241 x10e3/uL (140-360); RED BLOOD COUNT 3.59 x10e6/uL (3.6-5.1)
[2020-11-26 05:15] LABS: ANION GAP 15.7 mmol/L (8-16); BLOOD UREA NITROGEN < 5 mg/dL (7-26); CALCIUM 7.5 mg/dL (8.4-10.2); CARBON DIOXIDE 23 mmol/L (22-29); CHLORIDE 106 mmol/L (98-107); EST GLOMERULAR FILTRATION RATE > 60 ML/MIN (60-); GLUCOSE 86 mg/dL (74-118); POTASSIUM 3.7 mmol/L (3.5-5.1); SODIUM 141 mmol/L (136-145)
[2020-11-26 05:21] LABS: BUN/CREATININE RATIO 7 (6-25)
[2020-11-26] MEDS: LEVOTHYROXINE SODIUM 75 MCG TAB PO SCH (06:15)
[2020-11-26] MEDS: METOCLOPRAMIDE HCL 10 MG/2ML VIAL IV SCH ×4 (06:15→17:55)
[2020-11-26 07:24] LABS: EOSINOPHILS % (MANUAL) 1 % (0-7); LYMPHOCYTES % (MANUAL) 27 % (19-48); METAMYELOCYTES % (MANUAL) 3 % (0-0); NEUTROPHILS % (MANUAL) 65 % (40-74); NUCLEATED RED BLOOD CELLS 3
[2020-11-26 07:27] LABS: PLATELET ESTIMATE ADEQUATE; PLATELET MORPHOLOGY COMMENT NORMAL; RBC MORPHOLOGY COMMENT NORMAL
[2020-11-26] MEDS: CEFEPIME HCL 1GM 1 GM in SODIUM CHLORIDE 0.9% 50ML 50 ML IV SCH ×2 (08:30→20:44)
[2020-11-26] MEDS: CYANOCOBALAMIN 1,000 MCG TAB PO SCH (08:30)
[2020-11-26] MEDS: METOPROLOL SUCCINATE 25 MG TAB XL PO SCH ×2 (08:30→17:55)
[2020-11-26] MEDS: VANCOMYCIN 1GM/NS 250 ML 250 ML IV SCH (08:30)
[2020-11-26] MEDS ORDERED: CEFEPIME HCL 1 GM VIAL ONE ×2 (08:41→20:50)
[2020-11-26] MEDS ORDERED: SODIUM CHLORIDE 0.9% 50ML 50 ML ONE ×2 (08:50→20:52)
[2020-11-26] MEDS ORDERED: PANTOPRAZOLE 40 MG 10ML VIAL ONE ×2 (17:51→19:43)
[2020-11-26] MEDS ORDERED: SODIUM CHLORIDE 0.9% 50ML 100 ML ONE (19:46)
[2020-11-26] MEDS: ONDANSETRON HCL INJ 2MG/ML 2ML 2 MG/ML VIAL IV PRN (21:43)
[2020-11-27] VITALS (8 sets, daily range): BP systolic 116–140; BP diastolic 70–75
[2020-11-27] MEDS: METOCLOPRAMIDE HCL 10 MG/2ML VIAL IV SCH ×5 (00:03→23:49)
[2020-11-27] MEDS: HYDROMORPHONE 1MG/1ML INJ IV PRN ×5 (01:46→23:47)
[2020-11-27] MEDS ORDERED: PANTOPRAZOLE 40 MG 10ML VIAL ONE ×3 (04:09→21:31)
[2020-11-27] MEDS ORDERED: SODIUM CHLORIDE 0.9% 50ML 100 ML ONE (04:09)
[2020-11-27] MEDS: PANTOPRAZOLE INJ 40 MG in SODIUM CHLORIDE 0.9% 50ML 50 ML IV SCH ×5 (04:16→21:32)
[2020-11-27 05:11] LABS: BASOPHILS # (AUTO) 0.1 (0.0-0.1); EOSINOPHILS # (AUTO) 0.2 (0.0-0.4); EOSINOPHILS % 3.2 % (0.0-6.0); HEMATOCRIT 27.8 % (34.2-44.1); HEMOGLOBIN 8.9 g/dL (12.0-16.0); LYMPHOCYTES # (AUTO) 1.1 (1.0-3.2); LYMPHOCYTES % 21.4 % (18.0-39.1); MEAN CORPUSCULAR HEMOGLOBIN 26.4 pg (28-32); MEAN CORPUSCULAR VOLUME 82.5 fL (81-99); MONOCYTES # (AUTO) 0.6 (0.2-0.8); MONOCYTES % 12.7 % (4.4-11.3); NEUTROPHILS # (AUTO) 2.8 (2.1-6.9); NEUTROPHILS % 56.5 % (38.7-80.0); PLATELET COUNT 266 x10e3/uL (140-360); RED BLOOD COUNT 3.37 x10e6/uL (3.6-5.1); RED CELL DISTRIBUTION WIDTH 20.1 % (11.7-14.4)
[2020-11-27] MEDS: LEVOTHYROXINE SODIUM 75 MCG TAB PO SCH (05:14)
[2020-11-27] MEDS: ONDANSETRON HCL INJ 2MG/ML 2ML 2 MG/ML VIAL IV PRN ×2 (06:22→15:47)
[2020-11-27] MEDS: CEFEPIME HCL 1GM 1 GM in SODIUM CHLORIDE 0.9% 50ML 50 ML IV SCH ×2 (08:00→21:00)
[2020-11-27] MEDS ORDERED: CEFEPIME HCL 1 GM VIAL ONE ×2 (08:15→21:09)
[2020-11-27] MEDS ORDERED: SODIUM CHLORIDE 0.9% 50ML 50 ML ONE ×4 (09:53→21:31)
[2020-11-27] MEDS: CYANOCOBALAMIN 1,000 MCG TAB PO SCH (10:10)
[2020-11-27] MEDS: VANCOMYCIN 1GM/NS 250 ML 250 ML IV SCH (10:11)
[2020-11-27] MEDS: METOPROLOL SUCCINATE 25 MG TAB XL PO SCH ×2 (10:11→17:00)
[2020-11-27] MEDS ORDERED: HYDROCORTISONE SOD SUCCINATE 100 MG VIAL ONE (15:46)
[2020-11-28] VITALS: BP 125/75
[2020-11-28] MEDS ORDERED: SODIUM CHLORIDE 0.9% 50ML 50 ML ONE (03:59)
[2020-11-28] MEDS ORDERED: PANTOPRAZOLE 40 MG 10ML VIAL ONE (03:59)
[2020-11-28 04:00] VITALS: BP 92/57
[2020-11-28] MEDS: HYDROMORPHONE 1MG/1ML INJ IV PRN ×3 (04:15→13:38)
[2020-11-28 04:41] LABS: BASOPHILS % 0.8 % (0.0-1.0); EOSINOPHILS # (AUTO) 0.2 (0.0-0.4); EOSINOPHILS % 3.1 % (0.0-6.0); HEMATOCRIT 28.2 % (34.2-44.1); HEMOGLOBIN 9.1 g/dL (12.0-16.0); LYMPHOCYTES # (AUTO) 1.1 (1.0-3.2); LYMPHOCYTES % 21.8 % (18.0-39.1); MEAN CORPUSCULAR HGB CONC 32.3 g/dL (31-35); MEAN CORPUSCULAR VOLUME 83.7 fL (81-99); MONOCYTES # (AUTO) 0.8 (0.2-0.8); MONOCYTES % 14.8 % (4.4-11.3); NEUTROPHILS # (AUTO) 2.8 (2.1-6.9); NEUTROPHILS % 54.6 % (38.7-80.0); PLATELET COUNT 265 x10e3/uL (140-360); RED BLOOD COUNT 3.37 x10e6/uL (3.6-5.1); RED CELL DISTRIBUTION WIDTH 20.7 % (11.7-14.4)
[2020-11-28] MEDS: PANTOPRAZOLE INJ 40 MG in SODIUM CHLORIDE 0.9% 50ML 50 ML IV SCH (04:41)
[2020-11-28 05:07] LABS: ALANINE AMINOTRANSFERASE 18 IU/L (0-55); ALKALINE PHOSPHATASE 102 IU/L (40-150); ANION GAP 13.1 mmol/L (8-16); BLOOD UREA NITROGEN < 5 mg/dL (7-26); CALCIUM 7.4 mg/dL (8.4-10.2); CARBON DIOXIDE 25 mmol/L (22-29); CHLORIDE 105 mmol/L (98-107); CREATININE, SERUM 0.72 mg/dL (0.57-1.11); EST GLOMERULAR FILTRATION RATE > 60 ML/MIN (60-); GLUCOSE 75 mg/dL (74-118); POTASSIUM 3.1 mmol/L (3.5-5.1); SODIUM 140 mmol/L (136-145)
[2020-11-28 05:09] LABS: BUN/CREATININE RATIO 7 (6-25)
[2020-11-28] MEDS: LEVOTHYROXINE SODIUM 75 MCG TAB PO SCH (05:44)
[2020-11-28] MEDS: METOCLOPRAMIDE HCL 10 MG/2ML VIAL IV SCH (05:44)
[2020-11-28] MEDS ORDERED: MAGNESIUM SULFATE 2GM/50ML 50 ML IV ONE (05:45)
[2020-11-28] MEDS ORDERED: POTASSIUM CHLORIDE 10MEQ EA PO ONE ×3 (05:45→09:45)
[2020-11-28] MEDS ORDERED: PANTOPRAZOLE SOD 40 MG TABEC PO SCH (07:30)
[2020-11-28 07:53] VITALS: BP 111/67
[2020-11-28 08:27] VITALS: BP 111/67
[2020-11-28] MEDS ORDERED: CEFEPIME HCL 1 GM VIAL ONE (09:22)
[2020-11-28] MEDS: METOCLOPRAMIDE HCL 10 MG TAB PO SCH ×3 (09:29→16:22)
[2020-11-28] MEDS: CEFEPIME HCL 1GM 1 GM in SODIUM CHLORIDE 0.9% 50ML 50 ML IV SCH (09:29)
[2020-11-28] MEDS: CYANOCOBALAMIN 1,000 MCG TAB PO SCH (09:30)
[2020-11-28] MEDS: METOPROLOL SUCCINATE 25 MG TAB XL PO SCH ×2 (09:30→16:22)
[2020-11-28] MEDS: VANCOMYCIN 1GM/NS 250 ML 250 ML IV SCH (10:33)
[2020-11-28 11:40] VITALS: BP 124/70
[2020-11-28 16:08] VITALS: BP 127/83
[2020-11-28] MEDS ORDERED: METOPROLOL SUCC25 MG PO (16:14)
== END 2020-11-28 18:03 | disposition home or self-care (01) | DRG 871 ==
LOC: ER 15:33 → ERHOLD 17:19 → ICU 19:45 → MED/SURG 11-26 16:24
PROVIDERS: ADMIT Internal Medicine; ATTEND Internal Medicine
PROC: 02HV33Z Insertion of Infusion Device into Superior Vena Cava, Percutaneous Approach (ICD-10-PCS; principal; 2020-11-24)
PROC: B548ZZA Ultrasonography of Superior Vena Cava, Guidance (ICD-10-PCS; 2020-11-24)
PROC: 30243N1 Transfusion of Nonautologous Red Blood Cells into Central Vein, Percutaneous Approach (ICD-10-PCS; 2020-11-25)
DX: A41.9 Sepsis, unspecified organism (principal); R65.21 Severe sepsis with septic shock; I50.33 Acute on chronic diastolic (congestive) heart failure; J15.6 Pneumonia due to other Gram-negative bacteria; E44.0 Moderate protein-calorie malnutrition; N39.0 Urinary tract infection, site not specified; R62.7 Adult failure to thrive; E11.9 Type 2 diabetes mellitus without complications; D64.9 Anemia, unspecified; E86.1 Hypovolemia; R00.0 Tachycardia, unspecified; Z68.34 Body mass index [BMI] 34.0-34.9, adult; Z98.84 Bariatric surgery status; I10 Essential (primary) hypertension; Z88.2 Allergy status to sulfonamides; Z96.653 Presence of artificial knee joint, bilateral; E66.9 Obesity, unspecified; D63.8 Anemia in other chronic diseases classified elsewhere; K22.2 Esophageal obstruction; K76.0 Fatty (change of) liver, not elsewhere classified; Z86.718 Personal history of other venous thrombosis and embolism; E03.9 Hypothyroidism, unspecified; K21.9 Gastro-esophageal reflux disease without esophagitis; E87.6 Hypokalemia; Z20.822 Contact with and (suspected) exposure to COVID-19
CPT/HCPCS: 36415; 36555; 36569; 51700; 71045; 71260; 74177; 80048; 80053; 80202; 81001; 82150; 82550; 82553; 82607; 82746; 83540; 83605; 83690; 83735; 83880; 84439; 84466; 84481; 84484; 85025; 85045; 85379; 85610; 85730; 86850; 86870; 86880; 86900; 86905; 86920; 86922; 87040; 87086; 93005; 93971; 97139; 99001; 99284; J0610; J0692; J1170; J1720; J1940; J2405; J2543; J2550; J2765; J3370; J3411; J3475; J7030; J7040; J7050; J7121; P9016; Q9967; U0002

== ENCOUNTER → 2022-07-10 | Outpatient (CLI) | payer BC ==
[~2022-07-10] MED LIST changes: +METOCLOPRAMIDE H5 MG; +ONDANSETRON ODT4 MG PO
== END ==
LOC: CARD 10:46
PROVIDERS: ATTEND Internal Medicine
DX: I70.213 Atherosclerosis of native arteries of extremities with intermittent claudication, bilateral legs (principal); E11.42 Type 2 diabetes mellitus with diabetic polyneuropathy
CPT/HCPCS: 93926

== ENCOUNTER → 2022-08-28 | Outpatient (CLI) | payer BC | LOC: WCC 11:33 | PROVIDERS: ATTEND Family Medicine Adult Medicine | DX: E11.22 Type 2 diabetes mellitus with diabetic chronic kidney disease (principal); E11.628 Type 2 diabetes mellitus with other skin complications; I87.2 Venous insufficiency (chronic) (peripheral); S31.829A Unspecified open wound of left buttock, initial encounter; S91.309A Unspecified open wound, unspecified foot, initial encounter; R60.0 Localized edema; N18.1 Chronic kidney disease, stage 1; I10 Essential (primary) hypertension; K76.9 Liver disease, unspecified; E78.5 Hyperlipidemia, unspecified; E03.9 Hypothyroidism, unspecified; B96.89 Other specified bacterial agents as the cause of diseases classified elsewhere; E66.3 Overweight; F33.9 Major depressive disorder, recurrent, unspecified; G99.0 Autonomic neuropathy in diseases classified elsewhere; R26.89 Other abnormalities of gait and mobility; W45.8XXA Other foreign body or object entering through skin, initial encounter ==

== ENCOUNTER → 2022-11-14 | Outpatient (CLI) | payer BC ==
[~2022-11-14] MED LIST changes: +CLOTRIMAZOLE/BETAMETHASONE 45 GM CR TP ONE; +LIDOCAINE VISC 2% SOLN 15 ML UDC ONE; +MUPIROCIN 2% OINT 22 GM TUBE ONE; +TRYPSIN/BALSAM PERU/CASTOR OIL ONE
== END ==
LOC: WCC 09:30
PROVIDERS: ATTEND Family Medicine Adult Medicine
DX: R23.8 Other skin changes (principal); S30.811A Abrasion of abdominal wall, initial encounter

== ENCOUNTER → 2022-11-22 | Outpatient (CLI) | payer BC ==
[~2022-11-22] MED LIST changes: -CLOTRIMAZOLE/BETAMETHASONE 45 GM CR TP ONE; -LIDOCAINE VISC 2% SOLN 15 ML UDC ONE; -MUPIROCIN 2% OINT 22 GM TUBE ONE; -TRYPSIN/BALSAM PERU/CASTOR OIL ONE
== END ==
LOC: WCC 11-21 15:59
PROVIDERS: ATTEND Family Medicine Adult Medicine
DX: L89.323 Pressure ulcer of left buttock, stage 3 (principal); R23.8 Other skin changes; S30.811A Abrasion of abdominal wall, initial encounter

== ENCOUNTER → 2022-11-29 | Outpatient (CLI) | payer BC | LOC: WCC 12:00 | PROVIDERS: ATTEND Specialist | DX: L89.323 Pressure ulcer of left buttock, stage 3 (principal); S30.811A Abrasion of abdominal wall, initial encounter ==

== ENCOUNTER → 2022-12-11 | Outpatient (CLI) | payer BC ==
[~2022-12-11] MED LIST changes: +LIDOCAINE VISC 2% SOLN 15 ML UDC ONE
== END ==
LOC: WCC 14:01
PROVIDERS: ATTEND Family Medicine Adult Medicine
DX: L89.323 Pressure ulcer of left buttock, stage 3 (principal); L89.312 Pressure ulcer of right buttock, stage 2; S30.811A Abrasion of abdominal wall, initial encounter; R23.8 Other skin changes

== ENCOUNTER → 2022-12-18 | Outpatient (CLI) | payer BC ==
[~2022-12-18] MED LIST changes: -LIDOCAINE VISC 2% SOLN 15 ML UDC ONE
== END ==
LOC: WCC 12-17 11:21
PROVIDERS: ATTEND Family Medicine Adult Medicine
DX: L89.323 Pressure ulcer of left buttock, stage 3 (principal); L89.312 Pressure ulcer of right buttock, stage 2; S30.811A Abrasion of abdominal wall, initial encounter; R23.8 Other skin changes

== ENCOUNTER → 2022-12-25 | Outpatient (CLI) | payer BC | LOC: WCC 10:30 | PROVIDERS: ATTEND Family Medicine Adult Medicine | DX: L89.323 Pressure ulcer of left buttock, stage 3 (principal); L89.312 Pressure ulcer of right buttock, stage 2; S30.811A Abrasion of abdominal wall, initial encounter; S70.212A Abrasion, left hip, initial encounter; R23.8 Other skin changes ==

== ENCOUNTER → 2023-01-01 | Outpatient (CLI) | payer BC | LOC: WCC 09:38 | PROVIDERS: ATTEND Family Medicine Adult Medicine | DX: L89.323 Pressure ulcer of left buttock, stage 3 (principal); L89.312 Pressure ulcer of right buttock, stage 2; S30.811A Abrasion of abdominal wall, initial encounter; S70.212A Abrasion, left hip, initial encounter; R23.8 Other skin changes ==

== ENCOUNTER → 2023-01-08 | Outpatient (CLI) | payer BC | LOC: WCC 10:23 | PROVIDERS: ATTEND Family Medicine Adult Medicine | DX: L89.312 Pressure ulcer of right buttock, stage 2 (principal); S30.811A Abrasion of abdominal wall, initial encounter; S70.212A Abrasion, left hip, initial encounter ==

== ENCOUNTER → 2023-01-22 | Outpatient (CLI) | payer BC | LOC: WCC 09:25 | PROVIDERS: ATTEND Family Medicine Adult Medicine | DX: L89.323 Pressure ulcer of left buttock, stage 3 (principal); L89.312 Pressure ulcer of right buttock, stage 2; S30.811A Abrasion of abdominal wall, initial encounter ==

== ENCOUNTER → 2023-01-29 | Outpatient (CLI) | payer BC | LOC: WCC 10:17 | PROVIDERS: ATTEND Family Medicine Adult Medicine | DX: L89.323 Pressure ulcer of left buttock, stage 3 (principal); L89.312 Pressure ulcer of right buttock, stage 2; S30.811A Abrasion of abdominal wall, initial encounter ==

== ENCOUNTER → 2023-09-06 | Outpatient (REF) | payer BC ==
[~2023-09-06] MED LIST changes: +COLLAGENASE OINTMENT 30 GM TUBE ONE; +LIDOCAINE VISC 2% SOLN 15 ML UDC ONE
== END ==
LOC: WCC 10:01
PROVIDERS: ATTEND Internal Medicine Infectious Disease
DX: L89.322 Pressure ulcer of left buttock, stage 2 (principal)

== ENCOUNTER → 2023-09-12 | Outpatient (REF) | payer BC ==
[~2023-09-12] MED LIST changes: -COLLAGENASE OINTMENT 30 GM TUBE ONE; -LIDOCAINE VISC 2% SOLN 15 ML UDC ONE
== END ==
LOC: WCC 14:30
PROVIDERS: ATTEND Internal Medicine Infectious Disease
DX: L89.323 Pressure ulcer of left buttock, stage 3 (principal)

== ENCOUNTER → 2023-11-28 | Outpatient (REF) | payer BC ==
[~2023-11-28] MED LIST changes: +CLOTRIMAZOLE/BETAMETHASONE 45 GM CR TP ONE; +LIDOCAINE VISC 2% SOLN 15 ML UDC ONE
== END ==
LOC: WCC 15:43
PROVIDERS: ATTEND Internal Medicine Infectious Disease
DX: L89.323 Pressure ulcer of left buttock, stage 3 (principal)

== ENCOUNTER 2023-12-16 03:59 | Emergency (ER) | payer BC ==
[~2023-12-16] VITALS: Ht 167.6 cm; Wt 99.8 kg
[~2023-12-16 03:59] MED LIST changes: -CLOTRIMAZOLE/BETAMETHASONE 45 GM CR TP ONE; -LIDOCAINE VISC 2% SOLN 15 ML UDC ONE
[2023-12-16] MEDS ORDERED: SODIUM CHLORIDE 0.9% 1000ML 1,000 ML IV SCH (04:15)
[2023-12-16 04:35] LABS: BASOPHILS # (AUTO) 0.1 (0.0-0.1); BASOPHILS % 0.7 % (0.0-1.0); EOSINOPHILS # (AUTO) 0.2 (0.0-0.4); EOSINOPHILS % 1.1 % (0.0-6.0); HEMATOCRIT 44.7 % (34.2-44.1); HEMOGLOBIN 15.9 g/dL (12.0-16.0); LYMPHOCYTES # (AUTO) 3.1 (1.0-3.2); MEAN CORPUSCULAR HEMOGLOBIN 31.2 pg (28-32); MEAN CORPUSCULAR HGB CONC 35.6 g/dL (31-35); MEAN CORPUSCULAR VOLUME 87.6 fL (81-99); MONOCYTES # (AUTO) 1.3 (0.2-0.8); MONOCYTES % 9.3 % (4.4-11.3); NEUTROPHILS % 64.3 % (38.7-80.0); PLATELET COUNT 260 x10e3/uL (140-360); RED CELL DISTRIBUTION WIDTH 14.4 % (11.7-14.4); WHITE BLOOD COUNT 14.04 x10e3/uL (4.8-10.8)
[2023-12-16] MEDS: SODIUM CHLORIDE 0.9% 1000ML 1,000 ML IV ONE ×2 (04:46→05:01)
[2023-12-16 04:52] LABS: ALBUMIN/GLOBULIN RATIO 0.6 (0.8-2.0); ANION GAP 25.2 mmol/L (8-16); BILIRUBIN,TOTAL 0.9 mg/dL (0.2-1.2); CALCIUM 9.4 mg/dL (8.4-10.2); CREATININE, SERUM 1.15 mg/dL (0.57-1.11); POTASSIUM 4.2 mmol/L (3.5-5.1); TOTAL PROTEIN 8.3 g/dL (6.5-8.1)
[2023-12-16 05:17] LABS: CLARITY,URINE CLOUDY (CLEAR); COLOR,URINE AMBER (YELLOW); GLUCOSE, URINE NEGATIVE (NEGATIVE); LEUKOCYTE ESTERASE ,URINE 2+ (NEGATIVE); NITRITE,URINE NEGATIVE (NEGATIVE); PH,URINE 5.5 (5 - 7); PROTEIN,URINE DIPSTICK 1+ (NEGATIVE)
[2023-12-16 05:17] LABS: ABG HCO3 27 mmol/L (22-26); ABG PCO2 44 mmHg (35-45); ABG PO2 83 mmHg (80-105); ABG TCO2 28
[2023-12-16 05:18] LABS: BILIRUBIN,URINE 3+ (NEGATIVE); KETONES,URINE 2+ (NEGATIVE); URINE UROBILINOGEN 1 mg/dL (0.2 - 1)
[2023-12-16 05:32] LABS: AMORPHOUS SEDIMENT,URINE MANY (FEW); BACTERIA,URINE MANY /HPF; EPITHELIAL CELLS,URINE FEW /LPF; MUCUS,URINE MANY (RARE); WBC,URINE (MAN) >50 /HPF (0-5)
[2023-12-16] MEDS ORDERED: CEFDINIR300 MG PO (05:41)
[2023-12-16 06:05] LABS: AMPHETAMINES SCREEN,URINE NEGATIVE (NEGATIVE); BENZODIAZEPINES SCREEN,URINE NEGATIVE (NEGATIVE); CANNABINOIDS SCREEN,URINE NEGATIVE (NEGATIVE); METHADONE SCREEN, URINE NEGATIVE (NEGATIVE); OPIATES SCREEN,URINE NEGATIVE (NEGATIVE); PHENCYCLIDINE SCREEN,URINE NEGATIVE (NEGATIVE)
[2023-12-16 06:14] VITALS: BP 107/95; PULSE 104; RESP 14; TEMP 97.8; O2SAT 97
== END 2023-12-16 06:10 | disposition home or self-care (01) ==
LOC: ER 04:10
DX: F44.9 Dissociative and conversion disorder, unspecified (principal); N39.0 Urinary tract infection, site not specified; I10 Essential (primary) hypertension; E03.9 Hypothyroidism, unspecified; K21.9 Gastro-esophageal reflux disease without esophagitis; Z11.52 Encounter for screening for COVID-19; R94.31 Abnormal electrocardiogram [ECG] [EKG]; Z86.718 Personal history of other venous thrombosis and embolism
CPT/HCPCS: 36415; 36600; 51700; 70450; 71045; 80053; 80307; 81001; 82805; 83605; 84484; 85025; 87040; 87086; 87186; 93005; 99285; J2543; J7030; U0002

== ENCOUNTER → 2024-06-17 | Day surgery (SDC) | payer BC ==
[2024-06-15 11:29] LABS: BASOPHILS % 0.8 % (0.0-1.0); EOSINOPHILS # (AUTO) 0.1 (0.0-0.4); EOSINOPHILS % 1.4 % (0.0-6.0); HEMATOCRIT 42.1 % (34.2-44.1); HEMOGLOBIN 14.6 g/dL (12.0-16.0); LYMPHOCYTES # (AUTO) 1.5 (1.0-3.2); LYMPHOCYTES % 29.2 % (18.0-39.1); MEAN CORPUSCULAR HEMOGLOBIN 31.5 pg (28-32); MEAN CORPUSCULAR HGB CONC 34.7 g/dL (31-35); MEAN CORPUSCULAR VOLUME 90.9 fL (81-99); MONOCYTES # (AUTO) 0.4 (0.2-0.8); MONOCYTES % 7.2 % (4.4-11.3); NEUTROPHILS # (AUTO) 3.1 (2.1-6.9); PLATELET COUNT 203 x10e3/uL (140-360); RED BLOOD COUNT 4.63 x10e6/uL (3.6-5.1); RED CELL DISTRIBUTION WIDTH 13.2 % (11.7-14.4); WHITE BLOOD COUNT 5.13 x10e3/uL (4.8-10.8)
[~2024-06-17] MED LIST changes: +ALPRAZOLAM1 MG PO; +LACTATED RINGER'S 1,000 ML ONE; +LIDOCAINE HCL 2% LOCAL INJ 5 ML SDV VIAL INJ ONE; +METOCLOPRAMIDE HCL 10 MG/2ML VIAL ONE; +OZEMPIC0.25 MG/02 INJ; +POTASSIUM CHLO10 ME1 PO; +PROPOFOL IV EMULSION 10 MG/ML 20 ML VIAL ONE; +VITAMIN B12 INJ
[2024-06-17 13:41] VITALS: TEMP 97.1
[2024-06-17 14:10] VITALS: BP 150/70; PULSE 94; RESP 18; O2SAT 100
== END | disposition home or self-care (01) ==
LOC: OR 11:52
PROVIDERS: ATTEND Internal Medicine Gastroenterology
DX: K22.2 Esophageal obstruction (principal); K20.90 Esophagitis, unspecified without bleeding; K21.9 Gastro-esophageal reflux disease without esophagitis; Z98.84 Bariatric surgery status; E11.9 Type 2 diabetes mellitus without complications; R00.0 Tachycardia, unspecified; E03.9 Hypothyroidism, unspecified; R03.0 Elevated blood-pressure reading, without diagnosis of hypertension; F41.9 Anxiety disorder, unspecified; Z88.2 Allergy status to sulfonamides; Z01.810 Encounter for preprocedural cardiovascular examination; Z01.812 Encounter for preprocedural laboratory examination; Z79.85 Long-term (current) use of injectable non-insulin antidiabetic drugs; Z79.899 Other long term (current) drug therapy; Z53.20 Procedure and treatment not carried out because of patient's decision for unspecified reasons
CPT/HCPCS: 36415 ×2; 43239; 43245; 43450; 82948; 85025; 93005; J2003; J2470; J2704; J2765; J7121

== ENCOUNTER 2024-09-03 13:00 | Outpatient (RCR) | payer BC ==
[~2024-09-03 13:00] MED LIST changes: -LACTATED RINGER'S 1,000 ML ONE; -LIDOCAINE HCL 2% LOCAL INJ 5 ML SDV VIAL INJ ONE; -METOCLOPRAMIDE HCL 10 MG/2ML VIAL ONE; -PROPOFOL IV EMULSION 10 MG/ML 20 ML VIAL ONE
== END 2024-09-04 ==
LOC: PT 13:00
PROVIDERS: ATTEND Internal Medicine
DX: M25.512 Pain in left shoulder (principal)

== ENCOUNTER → 2024-10-02 | Outpatient (RCR) | payer BC | LOC: PT 09-08 12:14 | PROVIDERS: ATTEND Internal Medicine | DX: M25.512 Pain in left shoulder (principal) ==

== ENCOUNTER 2024-10-16 13:59 | Outpatient (RCR) | payer BC | END 2024-11-02 | LOC: PT 13:59 | PROVIDERS: ATTEND Internal Medicine | DX: M25.512 Pain in left shoulder (principal) ==